=== PATIENT | female | born 1995 | race Caucasian/White ===

== ENCOUNTER 2016-06-07 21:39 | Emergency (ER) | payer OTHER ==
--- NOTE | 2016-06-07 23:27 | ED ---
General Adult HPI - General Chief complaint: Extremity Injury, Lower Stated complaint: rt hip pain, fall 3 days ago Time Seen by Provider: 06/07/16 22:59 Source: patient, family, RN notes reviewed Mode of arrival: ambulatory Limitations: no limitations - History of Present Illness Initial comments: Chief complaint history of present illness a 21-year-old female here with his significant other. The patient reports 3 days ago she was walking slipped and fell hard on her right knee. Day later started developing discomfort to her right inner hip and hip area. No other complaints of pain to the rest of the body. Having difficulty walking because of the pains increased Patient thinks she might be . - Related Data Home Medications Medication Instructions Recorded Confirmed Pnv with Ca,No.72/Iron/FA 1 tab PO DAILY 03/22/15 06/07/16 [ Plus Tablet] Cyclobenzaprine [Flexeril] 10 mg PO BID PRN 06/07/16 06/07/16 Levothyroxine Sodium [Synthroid] 200 mcg PO DAILY 06/07/16 06/07/16 Omeprazole 20 mg PO BID 06/07/16 06/07/16 Previous Rx's Medication Instructions Recorded Ibuprofen [Motrin] 600 mg PO Q6HR PRN #20 tab 06/08/16 Orphenadrine [Norflex] 100 mg PO Q12H #10 tablet.er 06/08/16 Allergies Allergy/AdvReac Type Severity Reaction Status Date / Time pregabalin [From Lyrica] Allergy Nausea & Verified 06/07/16 23:11 Vomiting Review of Systems ROS Statement: Those systems with pertinent positive or pertinent negative responses have been documented in the HPI. Review of systems no complaint of headache chest pain shortness breath GI/ complaints. Her pain goes from her right knee to her right hip and pelvic area. All systems were otherwise reviewed. 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 Carpal tunnel syndrome for which she receives steroid shots. Surgeries thyroidectomy, ALLERGIES Lyrica. She does smoke strongly encouraged stop. ROS Other: All systems not noted in ROS Statement are negative. Past Medical History Past Medical History: Fibromyalgia Additional Past Medical History / Comment(s): carpal tunnel, fibromyalgia History of Any Multi-Drug Resistant Organisms: None Reported Past Surgical History: No Surgical Hx Reported Past Psychological History: No Psychological Hx Reported Smoking Status: Current some day smoker Past Alcohol Use History: None Reported Past Drug Use History: None Reported General Exam - General Exam Comments Initial Comments: General: The patient is awake and alert, playing of pain from her right knee to her right hip area. Eye: Pupils are equal, round and reactive to light, extra-ocular movements are intact ; there is normal conjunctiva bilaterally. No signs of icterus. Ears, nose, mouth and throat: There are moist mucous membranes and no oral lesions. No chipped teeth. TMJs nontender Neck: The neck is supple, there is no tenderness . No chest pain, no palpitations no shortness of breath no wheezing. Gastrointestinal: No abdominal pain no nausea no vomiting or diarrhea no back pain. Musculoskeletal: All extremities are examined for range of motion except with pain to the right knee but no pain or varus valgus or drawer testing. Pain to the right hip and right inner groin area. Neurovascular status of the foot is intact. Neurological: No evidence of any neuro deficits. No complaints of weakness. Limitations: no limitations Course Vital Signs 06/07/16 06/07/16 21:41 23:04 Temperature 100.1 F H 98.3 F Pulse Rate 117 H 96 Respiratory 20 20 Rate Blood Pressure 118/77 O2 Sat by Pulse 99 100 Oximetry Medical Decision Making - Medical Decision Making X-ray of the pelvis is done and reviewed by me. No evidence of any acute bony irregularity. Awaiting radiologist's final impression X-ray of the right hip was done. No evidence of any acute bony irregularity or ear or fracture. Awaiting radiologist's final impression. X-ray of the right knee was done and reviewed by me. No evidence of any acute bony irregularity. Mortise appears to be well maintained no evidence of any patellar fracture. Dr. Smith Patient be placed on ibuprofen 800 mg one every 8 hours with food. Also Norflex 1 tablet twice daily for 5 days. Ice to the knee gentle range of motion. If pain persists further investigation may be necessary. Patient be advised to follow-up with her family physician if needed she should contact the on-call orthopedic surgeon Dr. Briones - Lab Data Lab Results 06/07/16 Range/Units 23:42 Urine HCG, Qual Not Detected (Not Detectd) Disposition Clinical Impression: Sprain of right hip, Contusion of right knee Disposition: HOME SELF-CARE Condition: Fair Instructions: Knee Sprain (ED), Hip Sprain (ED) Additional Instructions: Ice to the areas of discomfort. Ibuprofen as directed for pain. Follow-up with family physician. If needed follow-up with orthopedics for further evaluation if pain persists for more than one week Prescriptions: Ibuprofen [Motrin] 600 mg PO Q6HR PRN #20 tab PRN Reason: Pain Orphenadrine [Norflex] 100 mg PO Q12H #10 tablet.er Time of Disposition: 00:49
[2016-06-08] MEDS ORDERED: IBUPROFEN 600 MG STARTER PACK 4 TAB BTL PO STA (00:30)
[2016-06-08 00:56] VITALS: BP 116/56; PULSE 89; RESP 18; TEMP 98.4
--- NOTE | 2016-06-08 01:05 | XR ---
EXAMINATION TYPE: XR knee 4V RT DATE OF EXAM: 06/08/2016 12:48 AM COMPARISON: 08/02/2013 HISTORY: Pain. Fell on the ice. TECHNIQUE: 4 views FINDINGS: I see no fracture nor dislocation. Joint spaces are normal. There is no sign of joint effus ion. IMPRESSION: Negative right knee exam. No change.
--- NOTE | 2016-06-08 01:07 | XR ---
EXAMINATION TYPE: XR Hip Complete RT DATE OF EXAM: 06/08/2016 12:48 AM COMPARISON: 08/02/2013 HISTORY: Fell on the ice. Hip pain. TECHNIQUE: 2 views FINDINGS: I see no fracture nor dislocation. Joint spaces are normal. IMPRESSION: Normal right hip exam. No change.
--- NOTE | 2016-06-08 01:07 | XR ---
EXAMINATION TYPE: XR pelvis AP view DATE OF EXAM: 06/08/2016 12:48 AM COMPARISON: 08/02/2013 HISTORY: Fell on the ice. Pain. TECHNIQUE: Single view FINDINGS: Pelvic ring is intact. Proximal femurs and hip joints are intact. Sacroiliac joints are nor mal. IMPRESSION: Normal pelvis.
== END 2016-06-08 00:58 | disposition home or self-care (01) ==
LOC: EC 21:39
DX: S80.01XA Contusion of right knee, initial encounter (principal); S73.101A Unspecified sprain of right hip, initial encounter; F17.200 Nicotine dependence, unspecified, uncomplicated; W01.0XXA Fall on same level from slipping, tripping and stumbling without subsequent striking against object, initial encounter; Y93.01 Activity, walking, marching and hiking; Z79.899 Other long term (current) drug therapy; Z88.8 Allergy status to other drugs, medicaments and biological substances
CPT/HCPCS: 72170; 73502; 81025; 99284

== ENCOUNTER 2016-12-20 18:06 | Emergency (ER) | payer BC, OTHER ==
[2016-12-20 18:27] VITALS: RESP 16; TEMP 97.8
[2016-12-20] MEDS ORDERED: SODIUM CHLORIDE 0.9% 1,000 ML IV STA (18:46)
--- NOTE | 2016-12-20 18:47 | ED ---
General Adult HPI - General Chief complaint: Abdominal Pain Stated complaint: Constipated x 2 weeks Time Seen by Provider: 12/20/16 18:39 Source: patient, RN notes reviewed Mode of arrival: ambulatory Limitations: no limitations - History of Present Illness Initial comments: Patient 21-year-old female who presents emergency room today with chief complaint of constipation over the last 2 weeks. Does not that she's tried some [id number] medications with little relief of the symptoms. She does admit that she has been passing gas. Does admit to 2 small bowel movements. States that he has been experiencing lower abdominal cramping in nature to the left lower quadrant. Denies any other complaints or associated symptoms. Patient denies any recent fever, chills, shortness of breath, chest pain, back pain, vomiting, numbness or tingling, dysuria or hematuria, constipation or diarrhea, headaches or visual changes, or any other complaints. - Related Data Home Medications Medication Instructions Recorded Confirmed Levothyroxine Sodium [Synthroid] 200 mcg PO DAILY 06/07/16 12/20/16 Levothyroxine Sodium [Synthroid] 25 mcg PO DAILY 12/20/16 12/20/16 Allergies Allergy/AdvReac Type Severity Reaction Status Date / Time pregabalin [From Lyrica] AdvReac Nausea & Verified 12/20/16 19:02 Vomiting Review of Systems ROS Statement: Those systems with pertinent positive or pertinent negative responses have been documented in the HPI. ROS Other: All systems not noted in ROS Statement are negative. Past Medical History Past Medical History: Fibromyalgia Additional Past Medical History / Comment(s): carpal tunnel, thyroid cancer History of Any Multi-Drug Resistant Organisms: None Reported Past Surgical History: No Surgical Hx Reported Additional Past Surgical History / Comment(s): thyroidectomy, iodine radiation therapy Past Psychological History: Anxiety Smoking Status: Former smoker Past Alcohol Use History: None Reported Past Drug Use History: None Reported General Exam - General Exam Comments Initial Comments: General: The patient is awake and alert, in no distress, and does not appear acutely ill. Eye: Pupils are equal, round and reactive to light, extra-ocular movements are intact. No nystagmus. There is normal conjunctiva bilaterally. No signs of icterus. Ears, nose, mouth and throat: There are moist mucous membranes and no oral lesions. Neck: The neck is supple, there is no tenderness or JVD. Cardiovascular: There is a regular rate and rhythm. No murmur, rub or gallop is appreciated. Respiratory: Lungs are clear to auscultation, respirations are non-labored, breath sounds are equal. No wheezes, stridor, rales, or rhonchi. Gastrointestinal: Soft, non-distended, non-tender abdomen without masses or organomegaly noted. There is no rebound or guarding present. No CVA tenderness. Bowel sounds are unremarkable. Musculoskeletal: Normal ROM, no tenderness. Strength 5/5. Sensation intact. Pulses equal bilaterally 2+. Neurological: A&O x 3. CN II-XII intact, There are no obvious motor or sensory deficits. Coordination appears grossly intact. Speech is normal. Skin: Skin is warm and dry and no rashes or lesions are noted. Psychiatric: Cooperative, appropriate mood & affect, normal judgment. Limitations: no limitations Course Vital Signs 12/20/16 18:22 Temperature 97.8 F Pulse Rate 83 Respiratory 16 Rate Blood Pressure 112/56 O2 Sat by Pulse 98 Oximetry Medical Decision Making - Medical Decision Making Patient reexamined at this time shows no signs of distress. Patient resting comfortably. X-ray reviewed. Labs reviewed unremarkable. Results were discussed with patient. TSH is currently pending at this time. She does take Synthroid. She is advised to follow-up with this level. Was discussed that this could be a possibility of cause constipation but at this time it will not roving changer as we will give her a laxative. Was discussed about enema. Patient has declined. Patient will be discharged home. - Lab Data Result diagrams: 12/20/16 19:03 12/20/16 19:03 Lab Results 12/20/16 12/20/16 12/20/16 Range/Units 19:03 19:03 19:03 WBC 8.8 (3.8-10.6) k/uL RBC 4.59 (3.80-5.40) m/uL Hgb 14.3 (11.4-16.0) gm/dL Hct 42.0 (34.0-46.0) % MCV 91.5 (80.0-100.0) fL MCH 31.2 (25.0-35.0) pg MCHC 34.1 (31.0-37.0) g/dL RDW 13.9 (11.5-15.5) % Plt Count 294 (150-450) k/uL Neutrophils % 65 % Lymphocytes % 27 % Monocytes % 5 % Eosinophils % 2 % Basophils % 0 % Neutrophils # 5.7 (1.3-7.7) k/uL Lymphocytes # 2.4 (1.0-4.8) k/uL Monocytes # 0.4 (0-1.0) k/uL Eosinophils # 0.2 (0-0.7) k/uL Basophils # 0.0 (0-0.2) k/uL Sodium 138 (137-145) mmol/L Potassium 4.1 (3.5-5.1) mmol/L Chloride 104 (98-107) mmol/L Carbon Dioxide 25 (22-30) mmol/L Anion Gap 9 mmol/L BUN 11 (7-17) mg/dL Creatinine 0.74 (0.52-1.04) mg/dL Est GFR (MDRD) Af Amer >60 (>60 ml/min/1.73 sqM) Est GFR (MDRD) Non-Af >60 (>60 ml/min/1.73 sqM) Glucose 81 (74-99) mg/dL Calcium 10.4 H (8.4-10.2) mg/dL Total Bilirubin 0.7 (0.2-1.3) mg/dL AST 23 (14-36) U/L ALT 35 (9-52) U/L Alkaline Phosphatase 64 (38-126) U/L Total Protein 7.0 (6.3-8.2) g/dL Albumin 4.2 (3.5-5.0) g/dL Urine Color Urine Appearance (Clear) Urine pH (5.0-8.0) Ur Specific [place] (1.001-1.035) Urine Protein (Negative) Urine Glucose (UA) (Negative) Urine Ketones (Negative) Urine Blood (Negative) Urine Nitrite (Negative) Urine Bilirubin (Negative) Urine Urobilinogen (<2.0) mg/dL Ur Leukocyte Esterase (Negative) Urine RBC (0-5) /hpf Urine WBC (0-5) /hpf Amorphous Sediment (None) /hpf Urine Mucus (None) /hpf Urine HCG, Qual Not Detected (Not Detectd) 12/20/16 Range/Units 19:03 WBC (3.8-10.6) k/uL RBC (3.80-5.40) m/uL Hgb (11.4-16.0) gm/dL Hct (34.0-46.0) % MCV (80.0-100.0) fL MCH (25.0-35.0) pg MCHC (31.0-37.0) g/dL RDW (11.5-15.5) % Plt Count (150-450) k/uL Neutrophils % % Lymphocytes % % Monocytes % % Eosinophils % % Basophils % % Neutrophils # (1.3-7.7) k/uL Lymphocytes # (1.0-4.8) k/uL Monocytes # (0-1.0) k/uL Eosinophils # (0-0.7) k/uL Basophils # (0-0.2) k/uL Sodium (137-145) mmol/L Potassium (3.5-5.1) mmol/L Chloride (98-107) mmol/L Carbon Dioxide (22-30) mmol/L Anion Gap mmol/L BUN (7-17) mg/dL Creatinine (0.52-1.04) mg/dL Est GFR (MDRD) Af Amer (>60 ml/min/1.73 sqM) Est GFR (MDRD) Non-Af (>60 ml/min/1.73 sqM) Glucose (74-99) mg/dL Calcium (8.4-10.2) mg/dL Total Bilirubin (0.2-1.3) mg/dL AST (14-36) U/L ALT (9-52) U/L Alkaline Phosphatase (38-126) U/L Total Protein (6.3-8.2) g/dL Albumin (3.5-5.0) g/dL Urine Color Light Yellow Urine Appearance Cloudy H (Clear) Urine pH 7.0 (5.0-8.0) Ur Specific [place] 1.013 (1.001-1.035) Urine Protein Negative (Negative) Urine Glucose (UA) Negative (Negative) Urine Ketones Negative (Negative) Urine Blood Negative (Negative) Urine Nitrite Negative (Negative) Urine Bilirubin Negative (Negative) Urine Urobilinogen <2.0 (<2.0) mg/dL Ur Leukocyte Esterase Negative (Negative) Urine RBC 1 (0-5) /hpf Urine WBC 1 (0-5) /hpf Amorphous Sediment Occasional H (None) /hpf Urine Mucus Rare H (None) /hpf Urine HCG, Qual (Not Detectd) Disposition Clinical Impression: Constipation Disposition: HOME SELF-CARE Condition: Good Instructions: Constipation (ED) Additional Instructions: Please use medication as discussed. Please follow-up with family doctor in the next 2 days of symptoms have not improved. Please return to emergency room if the symptoms increase or worsen or for any other concerns. Referrals: Mike Barrientos DO [Primary Care Provider] - 1-2 days Time of Disposition: 19:59
[2016-12-20 19:13] LABS: Basophils % (A) 0 %; CH 30.6; CHCM 33.6; Eosinophils # (A) 0.2 k/uL (0-0.7); Eosinophils % (A) 2 %; HDW 2.16; HGB 14.3 gm/dL (11.4-16.0); Luc # (Auto) 0.14; Luc % (Auto) 2; Lymphocytes # (A) 2.4 k/uL (1.0-4.8); Lymphocytes % (A) 27 %; MCH 31.2 pg (25.0-35.0); MCHC 34.1 g/dL (31.0-37.0); MCV 91.5 fL (80.0-100.0); Mean Platelet Volume 7.4; Monocytes # (A) 0.4 k/uL (0-1.0); Monocytes % (A) 5 %; Neutrophils # (A) 5.7 k/uL (1.3-7.7); Neutrophils % (A) 65 %; RBC 4.59 m/uL (3.80-5.40); RDW 13.9 % (11.5-15.5); WBC 8.8 k/uL (3.8-10.6); WBC (Perox) 8.51
[2016-12-20 19:16] LABS: Amorphous Sediment,Urine Occasional /hpf; Appearance,Urine Cloudy (Clear); Bilirubin,Urine Negative (Negative); Glucose,Urine (UA) Negative (Negative); Ketones,Urine Negative (Negative); Leukocyte Esterase,Urine Negative (Negative); Mucus,Urine Rare /hpf; Nitrite,Urine Negative (Negative); Particle Count 9115; Protein,Urine Negative (Negative); RBC,Urine 1 /hpf (0-5); Specific Gravity,Urine 1.013 (1.001-1.035); UA Billing (MACRO vs. MICRO) MICRO; Urobilinogen,Urine <2.0 mg/dL (<2.0); WBC,Urine 1 /hpf (0-5)
[2016-12-20 19:21] LABS: ALT 35 U/L (9-52); AST 23 U/L (14-36); Alkaline Phosphatase 64 U/L (38-126); Anion Gap 9 mmol/L; Blood Urea Nitrogen 11 mg/dL (7-17); Calcium 10.4 mg/dL (8.4-10.2); Carbon Dioxide 25 mmol/L (22-30); Chloride 104 mmol/L (98-107); Glucose 81 mg/dL (74-99); Non-African American GFR(MDRD) >60 (>60 ml/min/1.73 sqM); Potassium 4.1 mmol/L (3.5-5.1); Sodium 138 mmol/L (137-145); Total Bilirubin 0.7 mg/dL (0.2-1.3)
--- NOTE | 2016-12-20 19:46 | XR ---
EXAMINATION TYPE: XR KUB DATE OF EXAM: 12/20/2016 7:41 PM CLINICAL HISTORY: History of thyroid cancer. Constipation for 2 weeks per patient. Pain not further specified per order. TECHNIQUE: 2 upright KUB images of the abdomen are obtained. COMPARISON: None. FINDINGS: Scattered gas is seen in non-distended small bowel loops. Gas and fecal material is seen in non-distended colon. There is no visceromegaly, pneumoperitoneum, or abnormal calcification apprecia shanika. The lung bases are clear and the osseous structures are intact. IMPRESSION: Overall nonobstructive bowel gas pattern.
[2016-12-20] MEDS ORDERED: MAGNESIUM CITRATE 296 ML BOTTLE PO ONE (19:56)
[2016-12-20 20:30] VITALS: BP 110/68; PULSE 78
== END 2016-12-20 20:30 | disposition home or self-care (01) ==
LOC: EC 18:06
DX: K59.00 Constipation, unspecified (principal); E89.0 Postprocedural hypothyroidism; Z87.891 Personal history of nicotine dependence; Z79.899 Other long term (current) drug therapy; Z88.8 Allergy status to other drugs, medicaments and biological substances; Z85.850 Personal history of malignant neoplasm of thyroid
CPT/HCPCS: 36415; 74000; 80053; 81001; 81025; 84439; 84443; 85025; 96360; 99284

== ENCOUNTER → 2019-09-20 | Outpatient (CLI) | payer OTHER ==
--- NOTE | 2019-09-20 15:21 | XR ---
EXAMINATION TYPE: XR knee complete 3 views RT, XR tibia fibula 2 views RT DATE OF EXAM: 09/20/2019 COMPARISON: NONE HISTORY: 24-year-old female S80.01XA, pain from fall FINDINGS: Right knee: Some anterior soft tissue swelling along the infrapatellar region. Extensor mechanism cora ears intact. Trace knee joint fluid. No acute fracture, subluxation, or dislocation seen. Tibia/fibula: No acute fracture identified. Ankle joint appears grossly intact. IMPRESSION: There may be some mild soft tissue swelling along the anterior infrapatellar region. Otherwise, right knee and tibia/fibula without acute osseous abnormality seen.
== END | disposition home or self-care (01) ==
LOC: LABWHC1 14:47
PROVIDERS: ATTEND Emergency Medicine
DX: S80.01XA Contusion of right knee, initial encounter (principal)

== ENCOUNTER → 2020-11-18 | Outpatient (CLI) | payer BC ==
[2020-11-19 01:33] LABS: T4, Free (Free Thyroxine) 0.1 ng/dL (0.80-1.80)
== END | disposition home or self-care (01) ==
LOC: LABWHC1 14:05
PROVIDERS: ATTEND Otolaryngology
DX: C73 Malignant neoplasm of thyroid gland (principal)
CPT/HCPCS: 36415; 84432; 84439; 84443; 84481

== ENCOUNTER → 2020-11-20 | Outpatient (CLI) | payer BC ==
--- NOTE | 2020-11-25 12:26 | NM ---
EXAMINATION TYPE: NM thyroid image w uptake DATE OF EXAM: 11/21/2020 COMPARISON: NONE HISTORY: Thyroid cancer TECHNIQUE: Thyroid iodine uptake is calculated and images performed after the oral administration of 312 uCi 1-123 Capsule. FINDINGS: Suprasternal notch marker is utilized. There is a fair amount of background signal. Focal abnormal ra diotracer accumulation however is not evident. Uptake is calculated at 4 and 24 hours. There is essentially 0 uptake present within the thyroid beds during these time intervals. (1% at 4 hours, and 0.4% at 24 hours). Normal artifact from I-123 capsule ingestion is within the stomach. IMPRESSION: 1. No suspicious focal radiotracer accumulation to suggest residual thyroid tissue. 2. No suspicious uptake to suggest metastatic disease within the limited [id number].
== END | disposition home or self-care (01) ==
LOC: RADNMMAIN 08:33
PROVIDERS: ATTEND Otolaryngology
DX: C73 Malignant neoplasm of thyroid gland (principal)
CPT/HCPCS: 78014; A9516

== ENCOUNTER 2021-05-16 09:10 | Emergency (ER) | payer BC ==
[2021-05-16 09:22] VITALS: RESP 18
[2021-05-16] MEDS ORDERED: ACETAMINOPHEN TAB 500 MG TAB PO STA (09:47)
[2021-05-16] MEDS ORDERED: ONDANSETRON 4 MG/2 ML VIAL IVP STA ×2 (10:01→10:04)
[2021-05-16] MEDS ORDERED: KETOROLAC 15 MG/ML 1 ML VIAL IVP STA (10:04)
--- NOTE | 2021-05-16 10:16 | ED ---
General Adult HPI - General Chief complaint: Upper Respiratory Infection Stated complaint: Covid+/Antibodies Time Seen by Provider: 05/16/21 09:12 Source: patient, RN notes reviewed Mode of arrival: ambulatory Limitations: no limitations - History of Present Illness Initial comments: 26-year-old female presents emergency Department with chief complaint of COVID- 19. Patient states she started symptoms a days ago tested positive this week. Patient states she wants antibiotics. She continues to have nausea, decreased oral intake, fevers chills mild cough and congestion. - Related Data Home Medications Medication Instructions Recorded Confirmed Levothyroxine Sodium [Synthroid] 200 mcg PO DAILY 06/07/16 12/20/16 Levothyroxine Sodium [Synthroid] 25 mcg PO DAILY 12/20/16 12/20/16 Allergies Allergy/AdvReac Type Severity Reaction Status Date / Time pregabalin [From Lyrica] AdvReac Nausea & Verified 05/16/21 09:22 Vomiting Review of Systems ROS Statement: Those systems with pertinent positive or pertinent negative responses have been documented in the HPI. ROS Other: All systems not noted in ROS Statement are negative. Past Medical History Past Medical History: Fibromyalgia Additional Past Medical History / Comment(s): carpal tunnel, thyroid cancer, covid History of Any Multi-Drug Resistant Organisms: None Reported Past Surgical History: No Surgical Hx Reported Additional Past Surgical History / Comment(s): thyroidectomy, iodine radiation therapy Past Psychological History: Anxiety Smoking Status: Never smoker Past Alcohol Use History: None Reported Past Drug Use History: Marijuana General Exam Limitations: no limitations General appearance: alert, in no apparent distress Head exam: Present: atraumatic, normocephalic, normal inspection Eye exam: Present: normal appearance, PERRL, EOMI. Absent: scleral icterus, conjunctival injection, periorbital swelling ENT exam: Present: normal exam, normal oropharynx, mucous membranes moist Neck exam: Present: normal inspection, full ROM. Absent: tenderness, meningismus, lymphadenopathy Respiratory exam: Present: normal lung sounds bilaterally. Absent: respiratory distress, wheezes, rales, rhonchi, stridor Cardiovascular Exam: Present: normal rhythm, tachycardia, normal heart sounds. Absent: systolic murmur, diastolic murmur, rubs, gallop, clicks GI/Abdominal exam: Present: soft, tenderness (Mild diffuse), normal bowel sounds. Absent: distended, guarding, rebound, rigid Course Vital Signs 05/16/21 09:19 Temperature 100.9 F H Pulse Rate 103 H Respiratory 18 Rate Blood Pressure 112/72 O2 Sat by Pulse 100 Oximetry Medical Decision Making - Medical Decision Making Patient will receive on-call antibodies we discharged stable condition return parameters discussed Disposition Clinical Impression: COVID-19 Disposition: HOME SELF-CARE Condition: Stable Instructions (If sedation given, give patient instructions): Coronavirus Disease 2019 (COVID-19) Additional Instructions: Please return to the Emergency Department if symptoms worsen or any other concerns. Is patient prescribed a controlled substance at d/c from ED?: No Referrals: Mike Barrientos DO [Primary Care Provider] - 1-2 days Time of Disposition: 10:16
[2021-05-16] MEDS ORDERED: BAMLANIVIMAB (EUA) 700 MG, ETESEVIMAB (EUA) 1,400 MG in SODIUM CHLORIDE 0.9% 50 ML IVPB ONE (11:00)
[2021-05-16] MEDS ORDERED: SODIUM CHLORIDE 0.9% 50 ML IVPB ONE (11:30)
[2021-05-16 11:34] LABS: Amorphous Sediment,Urine Occasional /hpf; Appearance,Urine Turbid (Clear); Bacteria,Urine Rare /hpf; Bilirubin,Urine Negative (Negative); Blood,Urine Negative (Negative); Color,Urine Yellow; Glucose,Urine (UA) Negative (Negative); Ketones,Urine 2+ (Negative); Leukocyte Esterase,Urine Large (Negative); Mucus,Urine Many /hpf; Nitrite,Urine Negative (Negative); Protein,Urine 1+ (Negative); RBC,Urine 2 /hpf (0-5); Squamous Epithelial Cell,Urine 50 /hpf (0-4); WBC,Urine 34 /hpf (0-5)
[2021-05-16 13:36] VITALS: BP 103/71; PULSE 79; TEMP 98.4
== END 2021-05-16 13:35 | disposition home or self-care (01) ==
LOC: EC 09:10
DX: U07.1 COVID-19 (principal); M79.7 Fibromyalgia; F41.9 Anxiety disorder, unspecified; F12.90 Cannabis use, unspecified, uncomplicated; Z85.850 Personal history of malignant neoplasm of thyroid
CPT/HCPCS: 96374; 96375; 99283; M0245; 81001; 81025; 87086

== ENCOUNTER 2021-05-17 20:45 | Emergency (ER) | payer BC ==
[2021-05-17] MEDS ORDERED: SODIUM CHLORIDE 0.9% 500 ML 500 ML IV STA (21:54)
[2021-05-17] MEDS ORDERED: SODIUM CHLORIDE 0.9% 1,000 ML IV STA (21:54)
[2021-05-17] MEDS ORDERED: KETOROLAC 15 MG/ML 1 ML VIAL IVP STA (21:54)
[2021-05-17] MEDS ORDERED: DEXAMETHASONE SOD PHOSPHATE 10 MG/ML 1 ML VIAL IVP STA (21:54)
[2021-05-17] MEDS ORDERED: ACETAMINOPHEN TAB 500 MG TAB PO STA (21:54)
[2021-05-17] MEDS ORDERED: SODIUM CHLORIDE 0.9% 1,000 ML IV SCH (22:00)
--- NOTE | 2021-05-17 22:14 | ED ---
Recheck HPI - General Chief Complaint: Shortness of Breath Stated Complaint: Revisit COVID+, Weakness Time Seen by Provider: 05/17/21 21:38 Source: patient, RN notes reviewed, old records reviewed Mode of arrival: ambulatory Limitations: no limitations - History of Present Illness Initial Comments: This is a 26-year-old female to the ER for evaluation today. Patient Dese for evaluation regards to significant shortness of breath weakness persistent sh ortness of breath and weakness with recent syncopal event on exertion. Severe shortness of breath with exertion. Otherwise patient has known coronavirus. Patient was given antibiotics. Patient is around a 7 or 8 with worsening symptoms. Fevers weakness dehydration and decreased appetite MD Complaint: abnormal lab (Positive for coronavirus) -: week(s) Returns Today for: persistent/worsening pain related to initial visit Symptoms Since Prior Visit: worsening pain, fever Context: other (Syncopal event and weakness) Associated Symptoms: fever, chills, shortness of breath, malaise Treatments Prior to Arrival: other medications - Related Data Home Medications Medication Instructions Recorded Confirmed Levothyroxine Sodium [Synthroid] 200 mcg PO DAILY 06/07/16 05/17/21 Fluconazole [Diflucan] 150 mg PO DIRECTED PRN 05/17/21 05/17/21 Previous Rx's Medication Instructions Recorded Cephalexin [Keflex] 500 mg PO Q8HR #21 cap 05/16/21 Allergies Allergy/AdvReac Type Severity Reaction Status Date / Time pregabalin [From Lyrica] AdvReac Nausea & Verified 05/17/21 21:52 Vomiting Review of Systems ROS Statement: Those systems with pertinent positive or pertinent negative responses have been documented in the HPI. ROS Other: All systems not noted in ROS Statement are negative. Past Medical History Past Medical History: Fibromyalgia Additional Past Medical History / Comment(s): carpal tunnel, thyroid cancer, covid History of Any Multi-Drug Resistant Organisms: None Reported Past Surgical History: No Surgical Hx Reported Additional Past Surgical History / Comment(s): thyroidectomy, iodine radiation therapy Past Psychological History: Anxiety Smoking Status: Never smoker Past Alcohol Use History: None Reported Past Drug Use History: Marijuana General Exam Limitations: no limitations General appearance: alert, in no apparent distress Head exam: Present: atraumatic, normocephalic, normal inspection Eye exam: Present: normal appearance, PERRL, EOMI. Absent: scleral icterus, conjunctival injection, periorbital swelling ENT exam: Present: normal exam, mucous membranes moist Neck exam: Present: normal inspection. Absent: tenderness, meningismus, lymphadenopathy Respiratory exam: Present: normal lung sounds bilaterally. Absent: respiratory distress, wheezes, rales, rhonchi, stridor Cardiovascular Exam: Present: regular rate, normal rhythm, normal heart sounds. Absent: systolic murmur, diastolic murmur, rubs, gallop, clicks GI/Abdominal exam: Present: soft, normal bowel sounds. Absent: distended, tenderness, guarding, rebound, rigid Extremities exam: Present: normal inspection, full ROM, normal capillary refill. Absent: tenderness, pedal edema, joint swelling, calf tenderness Back exam: Present: normal inspection Neurological exam: Present: alert, oriented X3, CN II-XII intact Psychiatric exam: Present: normal affect, normal mood Skin exam: Present: warm, dry, intact, normal color. Absent: rash Course Vital Signs 05/17/21 21:12 Temperature 98.2 F Pulse Rate 83 Respiratory 20 Rate Blood Pressure 108/70 O2 Sat by Pulse 93 L Oximetry - Reevaluation(s) Reevaluation #1: 05/18/21 00:53 Medical record is reviewed Reevaluation #2: 05/18/21 00:53 Patient still feels very weak and shortness of breath Reevaluation #3: 05/18/21 00:53 Patient is without chest pain Reevaluation #4: 05/18/21 00:54 Patient informed results and questions answered Medical Decision Making - Medical Decision Making 26 female DF for evaluation patient presents today for evaluation regards to recheck for coronavirus. Patient has had antibiotic Dese tetanus of coronavirus, patient states that she has increasing weakness with syncopal event shortness of breath on exertion states her and will try pulse ox is anywhere from 85-88 - Lab Data Result diagrams: 05/17/21 22:29 05/17/21 22:29 Lab Results 05/17/21 05/17/21 05/17/21 Range/Units 22:29 22:29 22:29 WBC 4.7 (3.8-10.6) k/uL RBC 4.19 (3.80-5.40) m/uL Hgb 13.2 (11.4-16.0) gm/dL Hct 39.5 (34.0-46.0) % MCV 94.2 (80.0-100.0) fL MCH 31.6 (25.0-35.0) pg MCHC 33.5 (31.0-37.0) g/dL RDW 13.3 (11.5-15.5) % Plt Count 181 (150-450) k/uL MPV 8.4 Neutrophils % 60 % Lymphocytes % 33 % Monocytes % 5 % Eosinophils % 1 % Basophils % 0 % Neutrophils # 2.8 (1.3-7.7) k/uL Lymphocytes # 1.5 (1.0-4.8) k/uL Monocytes # 0.2 (0-1.0) k/uL Eosinophils # 0.0 (0-0.7) k/uL Basophils # 0.0 (0-0.2) k/uL PT 9.5 (9.0-12.0) sec INR 0.9 (<1.2) APTT 19.8 L (22.0-30.0) sec D-Dimer 0.77 H (<0.60) mg/L FEU Sodium 135 L (137-145) mmol/L Potassium 4.5 (3.5-5.1) mmol/L Chloride 104 (98-107) mmol/L Carbon Dioxide 21 L (22-30) mmol/L Anion Gap 10 mmol/L BUN 11 (7-17) mg/dL Creatinine 0.52 (0.52-1.04) mg/dL Est GFR (CKD-EPI)AfAm >90 (>60 ml/min/1.73 sqM) Est GFR (CKD-EPI)NonAf >90 (>60 ml/min/1.73 sqM) Glucose 81 (74-99) mg/dL Plasma Lactic Acid Elmo (0.7-2.0) mmol/L Calcium 8.9 (8.4-10.2) mg/dL Magnesium 2.1 (1.6-2.3) mg/dL Total Bilirubin 0.9 (0.2-1.3) mg/dL AST 69 H (14-36) U/L ALT 44 H (4-34) U/L Alkaline Phosphatase 44 (38-126) U/L Lactate Dehydrogenase 1458 H (313-618) U/L Troponin I (0.000-0.034) ng/mL C-Reactive Protein 2.5 H (<1.0) mg/dL Total Protein 7.4 (6.3-8.2) g/dL Albumin 4.0 (3.5-5.0) g/dL 05/17/21 05/17/21 Range/Units 22:29 22:29 WBC (3.8-10.6) k/uL RBC (3.80-5.40) m/uL Hgb (11.4-16.0) gm/dL Hct (34.0-46.0) % MCV (80.0-100.0) fL MCH (25.0-35.0) pg MCHC (31.0-37.0) g/dL RDW (11.5-15.5) % Plt Count (150-450) k/uL MPV Neutrophils % % Lymphocytes % % Monocytes % % Eosinophils % % Basophils % % Neutrophils # (1.3-7.7) k/uL Lymphocytes # (1.0-4.8) k/uL Monocytes # (0-1.0) k/uL Eosinophils # (0-0.7) k/uL Basophils # (0-0.2) k/uL PT (9.0-12.0) sec INR (<1.2) APTT (22.0-30.0) sec D-Dimer (<0.60) mg/L FEU Sodium (137-145) mmol/L Potassium (3.5-5.1) mmol/L Chloride (98-107) mmol/L Carbon Dioxide (22-30) mmol/L Anion Gap mmol/L BUN (7-17) mg/dL Creatinine (0.52-1.04) mg/dL Est GFR (CKD-EPI)AfAm (>60 ml/min/1.73 sqM) Est GFR (CKD-EPI)NonAf (>60 ml/min/1.73 sqM) Glucose (74-99) mg/dL Plasma Lactic Acid Elmo 0.9 (0.7-2.0) mmol/L Calcium (8.4-10.2) mg/dL Magnesium (1.6-2.3) mg/dL Total Bilirubin (0.2-1.3) mg/dL AST (14-36) U/L ALT (4-34) U/L Alkaline Phosphatase (38-126) U/L Lactate Dehydrogenase (313-618) U/L Troponin I <0.012 (0.000-0.034) ng/mL C-Reactive Protein (<1.0) mg/dL Total Protein (6.3-8.2) g/dL Albumin (3.5-5.0) g/dL - EKG Data -: EKG Interpreted by Me (EKG shows sinus rhythm 76 NJ 146 QRS 78 QTc 375) - Radiology Data Radiology results: report reviewed (CT chest negative for PE), image reviewed Disposition Clinical Impression: COVID-19 2019 novel coronavirus-infected pneumonia (NCIP), Hypoxia, Weakness, Nausea & vomiting, Syncope Disposition: ADMITTED IP TO THIS HOSP Condition: Good Is patient prescribed a controlled substance at d/c from ED?: No
[2021-05-17 22:49] LABS: Basophils % (A) 0 %; Eosinophils % (A) 1 %; HCT 39.5 % (34.0-46.0); HGB 13.2 gm/dL (11.4-16.0); Lymphocytes # (A) 1.5 k/uL (1.0-4.8); Lymphocytes % (A) 33 %; MCH 31.6 pg (25.0-35.0); MCHC 33.5 g/dL (31.0-37.0); MCV 94.2 fL (80.0-100.0); Mean Platelet Volume 8.4; Monocytes # (A) 0.2 k/uL (0-1.0); Monocytes % (A) 5 %; Neutrophils # (A) 2.8 k/uL (1.3-7.7); Neutrophils % (A) 60 %; Platelet Count 181 k/uL (150-450); RBC 4.19 m/uL (3.80-5.40); RDW 13.3 % (11.5-15.5); WBC 4.7 k/uL (3.8-10.6)
[2021-05-17] MEDS ORDERED: ONDANSETRON 4 MG/2 ML VIAL IVP STA (22:49)
[2021-05-17 23:02] LABS: ALT 44 U/L (4-34); AST 69 U/L (14-36); African American GFR (CKD) >90 (>60 ml/min/1.73 sqM); Alkaline Phosphatase 44 U/L (38-126); Anion Gap 10 mmol/L; Blood Urea Nitrogen 11 mg/dL (7-17); C Reactive Protein 2.5 mg/dL (<1.0); Calcium 8.9 mg/dL (8.4-10.2); Carbon Dioxide 21 mmol/L (22-30); Chloride 104 mmol/L (98-107); Glucose 81 mg/dL (74-99); LDH 1458 U/L (313-618); Magnesium 2.1 mg/dL (1.6-2.3); Non-African American GFR(CKD) >90 (>60 ml/min/1.73 sqM); Potassium 4.5 mmol/L (3.5-5.1); Sodium 135 mmol/L (137-145); Total Bilirubin 0.9 mg/dL (0.2-1.3); Total Protein 7.4 g/dL (6.3-8.2)
[2021-05-17 23:10] LABS: INR 0.9 (<1.2); Prothrombin Time 9.5 sec (9.0-12.0)
--- NOTE | 2021-05-17 23:19 | CT ---
EXAMINATION TYPE: CT angio chest DATE OF EXAM: 05/17/2021 COMPARISON: None HISTORY: SOB CT DLP: 247.6 mGycm Automated exposure control for dose reduction was used. CONTRAST: Performed with IV Contrast, patient injected with 65ml mL of Isovue 370. There are 3-D post processed images. There is some patchy airspace consolidation in both lower lobes. Heart size is normal. There is no pe ricardial effusion. There is no mediastinal adenopathy. There are no hilar masses. There is normal co ntrast opacification of the pulmonary arteries. There are no filling defects. Thoracic aorta is intac t. There is no aneurysm or dissection. The thoracic spine is intact. There is no compression fracture. Sternum is intact. Upper abdominal so ft tissues appear intact. IMPRESSION: Bilateral lower lobe patchy airspace pneumonia. No evidence of pulmonary embolism.
[2021-05-17 23:23] LABS: Partial Thromboplastin Time 19.8 sec (22.0-30.0)
[2021-05-17] MEDS ORDERED: ONDANSETRON 4 MG/2 ML VIAL IVP PRN ×2 (23:48→23:53)
[2021-05-17] MEDS ORDERED: NALOXONE 0.4 MG/ML 1 ML VIAL IV PRN (23:48)
[2021-05-17] MEDS ORDERED: IBUPROFEN 400 MG TAB PO PRN (23:48)
[2021-05-17] MEDS ORDERED: ACETAMINOPHEN TAB 325 MG TAB PO PRN (23:48)
[2021-05-17] MEDS ORDERED: LORazepam 2 MG/ML INJ IV PRN (23:48)
[2021-05-17] MEDS ORDERED: MORPHINE SULFATE 4 MG/ML SYRINGE IV PRN (23:48)
[2021-05-18 02:14] VITALS: BP 106/66; PULSE 82; RESP 18; TEMP 98.4
[2021-05-18] MEDS ORDERED: DEXAMETHASONE SOD PHOSPHATE 10 MG/ML 1 ML VIAL IVP SCH (09:00)
[2021-05-18] MEDS ORDERED: PANTOPRAZOLE 40 MG/10 ML VIAL IV SCH (09:00)
[2021-05-18] MEDS ORDERED: ENOXAPARIN 40 MG/0.4 ML SYRINGE SQ SCH (09:00)
== END 2021-05-18 01:10 | disposition other institution (70) ==
LOC: EC 20:45 → 6NMEDSUR 23:48 → UNDOADMOB 23:48 → EC 05-18 01:10
DX: U07.1 COVID-19 (principal); J12.82 Pneumonia due to coronavirus disease 2019; R09.02 Hypoxemia; R11.2 Nausea with vomiting, unspecified; R53.1 Weakness; R55 Syncope and collapse; F41.9 Anxiety disorder, unspecified; F12.90 Cannabis use, unspecified, uncomplicated
CPT/HCPCS: 36415; 93005; 85379; 80053; 82728; 83605; 83615; 83735; 84484; 85025; 85610; 85730; 86140; 71275; 99285; 96374; 96375 ×2; 96361 ×2; J1100; J2405; J1885; Q9967

== ENCOUNTER 2021-07-17 15:06 | Emergency (ER) | payer BC ==
[2021-07-17 15:24] VITALS: TEMP 99.6
[2021-07-17 16:05] LABS: Appearance,Urine Cloudy (Clear); Bilirubin,Urine Negative (Negative); Blood,Urine Negative (Negative); Color,Urine Light Yellow; Glucose,Urine (UA) Negative (Negative); Ketones,Urine Negative (Negative); Leukocyte Esterase,Urine Moderate (Negative); Mucus,Urine Occasional /hpf; Nitrite,Urine Negative (Negative); Protein,Urine Negative (Negative); RBC,Urine 4 /hpf (0-5); Specific Gravity,Urine 1.014 (1.001-1.035); Squamous Epithelial Cell,Urine 7 /hpf (0-4); Urobilinogen,Urine <2.0 mg/dL (<2.0); WBC,Urine 5 /hpf (0-5)
[2021-07-17] MEDS ORDERED: SODIUM CHLORIDE 0.9% 1,000 ML IV STA (16:36)
[2021-07-17] MEDS ORDERED: ONDANSETRON 4 MG/2 ML VIAL IVP STA (16:36)
[2021-07-17] MEDS ORDERED: KETOROLAC 15 MG/ML 1 ML VIAL IVP STA (16:37)
[2021-07-17 16:54] LABS: Basophils # (A) 0.1 k/uL (0-0.2); Basophils % (A) 1 %; Eosinophils # (A) 0.1 k/uL (0-0.7); Eosinophils % (A) 1 %; HCT 37.4 % (34.0-46.0); HGB 12.4 gm/dL (11.4-16.0); Lymphocytes # (A) 2.8 k/uL (1.0-4.8); Lymphocytes % (A) 41 %; MCH 32.3 pg (25.0-35.0); MCV 97.6 fL (80.0-100.0); Mean Platelet Volume 7.6; Monocytes # (A) 0.3 k/uL (0-1.0); Monocytes % (A) 5 %; Neutrophils # (A) 3.3 k/uL (1.3-7.7); Neutrophils % (A) 49 %; Platelet Count 292 k/uL (150-450); RBC 3.83 m/uL (3.80-5.40); RDW 13.7 % (11.5-15.5); WBC 6.7 k/uL (3.8-10.6)
[2021-07-17 17:03] LABS: ALT 17 U/L (4-34); AST 23 U/L (14-36); African American GFR (CKD) >90 (>60 ml/min/1.73 sqM); Albumin 3.8 g/dL (3.5-5.0); Alkaline Phosphatase 35 U/L (38-126); Anion Gap 8 mmol/L; Blood Urea Nitrogen 7 mg/dL (7-17); Calcium 9.3 mg/dL (8.4-10.2); Carbon Dioxide 20 mmol/L (22-30); Chloride 107 mmol/L (98-107); Glucose 81 mg/dL (74-99); Lipase 87 U/L (23-300); Non-African American GFR(CKD) >90 (>60 ml/min/1.73 sqM); Potassium 3.9 mmol/L (3.5-5.1); Sodium 135 mmol/L (137-145); Total Bilirubin 0.4 mg/dL (0.2-1.3); Total Protein 6.5 g/dL (6.3-8.2)
[2021-07-17 17:14] VITALS: RESP 16
--- NOTE | 2021-07-17 17:37 | ED ---
General Adult HPI - General Chief complaint: Nausea/Vomiting/Diarrhea Stated complaint: Vomiting Time Seen by Provider: 07/17/21 16:09 Source: patient Mode of arrival: ambulatory Limitations: no limitations - History of Present Illness Initial comments: 26 year-old female patient presents for evaluation of abdominal pain and vomiting. Patient states she has been having symptoms for the last 6 months. States over the last week she has had daily symptoms. States she sometimes will only vomit one time. Sometimes she will be unable to eat or drink the entire day. States she did recently start having lower abdominal pain, she had ultrasound ordered at [facility] yesterday and was found to have a 5cm ovarian cyst on the right side. States when she woke this morning her pain was worse. Denies any vomiting today. States she her physician wanted her to come in for a CT abdomen and pelvis. She does have thyroid disorder and take 200mcg synthroid daily. Does take carafate for her chronic vomiting. Does smoke marijuana daily but does not believe her symptoms are at all related. Denies any hematochezia or melena. Denies fever or chills. Denies any new or stopped medication. Denies history of abdominal surgery. Denies chance of . - Related Data Home Medications Medication Instructions Recorded Confirmed Levothyroxine Sodium [Synthroid] 200 mcg PO DAILY 06/07/16 07/17/21 Sucralfate [Carafate] 1 gm PO AC-TID PRN 07/17/21 07/17/21 Previous Rx's Medication Instructions Recorded Metoclopramide [Reglan] 10 mg PO Q8H PRN #30 tab 07/17/21 Allergies Allergy/AdvReac Type Severity Reaction Status Date / Time pregabalin [From Lyrica] AdvReac Nausea & Verified 07/17/21 17:09 Vomiting Review of Systems ROS Statement: Those systems with pertinent positive or pertinent negative responses have been documented in the HPI. ROS Other: All systems not noted in ROS Statement are negative. Past Medical History Past Medical History: Fibromyalgia Additional Past Medical History / Comment(s): carpal tunnel, thyroid cancer, covid History of Any Multi-Drug Resistant Organisms: None Reported Past Surgical History: No Surgical Hx Reported Additional Past Surgical History / Comment(s): thyroidectomy, iodine radiation therapy Past Psychological History: Anxiety Smoking Status: Never smoker Past Alcohol Use History: None Reported Past Drug Use History: Marijuana General Exam Limitations: no limitations General appearance: alert, in no apparent distress, other (This is a well- developed, well-nourished adult female in no acute distress.) Respiratory exam: Present: normal lung sounds bilaterally. Absent: respiratory distress, wheezes, rales, rhonchi, stridor Cardiovascular Exam: Present: regular rate, normal rhythm, normal heart sounds. Absent: systolic murmur, diastolic murmur, rubs, gallop, clicks GI/Abdominal exam: Present: soft, tenderness (Right lower quadrant), normal bowel sounds. Absent: distended, guarding, rebound, rigid Neurological exam: Present: alert, oriented X3, CN II-XII intact Psychiatric exam: Present: normal affect, normal mood Skin exam: Present: warm, dry, intact, normal color. Absent: rash Course Vital Signs 07/17/21 07/17/21 07/17/21 15:22 17:13 19:00 Temperature 99.6 F Pulse Rate 81 87 77 Respiratory 20 16 16 Rate Blood Pressure 111/84 107/78 102/77 O2 Sat by Pulse 97 97 98 Oximetry Medical Decision Making - Medical Decision Making 26 old female patient presented to the emergency department for evaluation of right lower quadrant abdominal pain for the last several days. She's had nausea and vomiting for the last 6 months. Physical examination did reveal right lower quadrant tenderness. Labs reviewed and are unremarkable. Ultrasound was obtained and showed evidence for ovarian cyst bilateral bigger on the right side. No evidence for torsion. CT abdomen and pelvis was obtained and was negative. She is not . She will be discharged follow up with the primary care physician and SURGICAL TERRITORY MANAGER for recheck as soon as possible. She is given prescription for Reglan for nausea and vomiting. Return parameters discussed in detail and she verbalizes understanding and agrees with this plan. My attending is Dr. Boss. - Lab Data Result diagrams: 07/17/21 16:43 07/17/21 16:43 Lab Results 07/17/21 07/17/21 07/17/21 Range/Units 15:25 15:25 16:43 WBC 6.7 (3.8-10.6) k/uL RBC 3.83 (3.80-5.40) m/uL Hgb 12.4 (11.4-16.0) gm/dL Hct 37.4 (34.0-46.0) % MCV 97.6 (80.0-100.0) fL MCH 32.3 (25.0-35.0) pg MCHC 33.0 (31.0-37.0) g/dL RDW 13.7 (11.5-15.5) % Plt Count 292 (150-450) k/uL MPV 7.6 Neutrophils % 49 % Lymphocytes % 41 % Monocytes % 5 % Eosinophils % 1 % Basophils % 1 % Neutrophils # 3.3 (1.3-7.7) k/uL Lymphocytes # 2.8 (1.0-4.8) k/uL Monocytes # 0.3 (0-1.0) k/uL Eosinophils # 0.1 (0-0.7) k/uL Basophils # 0.1 (0-0.2) k/uL Sodium (137-145) mmol/L Potassium (3.5-5.1) mmol/L Chloride (98-107) mmol/L Carbon Dioxide (22-30) mmol/L Anion Gap mmol/L BUN (7-17) mg/dL Creatinine (0.52-1.04) mg/dL Est GFR (CKD-EPI)AfAm (>60 ml/min/1.73 sqM) Est GFR (CKD-EPI)NonAf (>60 ml/min/1.73 sqM) Glucose (74-99) mg/dL Plasma Lactic Acid Elmo (0.7-2.0) mmol/L Calcium (8.4-10.2) mg/dL Total Bilirubin (0.2-1.3) mg/dL AST (14-36) U/L ALT (4-34) U/L Alkaline Phosphatase (38-126) U/L Total Protein (6.3-8.2) g/dL Albumin (3.5-5.0) g/dL Lipase (23-300) U/L Urine Color Light Yellow Urine Appearance Cloudy H (Clear) Urine pH 6.0 (5.0-8.0) Ur Specific [place] 1.014 (1.001-1.035) Urine Protein Negative (Negative) Urine Glucose (UA) Negative (Negative) Urine Ketones Negative (Negative) Urine Blood Negative (Negative) Urine Nitrite Negative (Negative) Urine Bilirubin Negative (Negative) Urine Urobilinogen <2.0 (<2.0) mg/dL Ur Leukocyte Esterase Moderate H (Negative) Urine RBC 4 (0-5) /hpf Urine WBC 5 (0-5) /hpf Ur Squamous Epith Cells 7 H (0-4) /hpf Urine Mucus Occasional H (None) /hpf Urine HCG, Qual Not Detected (Not Detectd) 07/17/21 07/17/21 Range/Units 16:43 16:43 WBC (3.8-10.6) k/uL RBC (3.80-5.40) m/uL Hgb (11.4-16.0) gm/dL Hct (34.0-46.0) % MCV (80.0-100.0) fL MCH (25.0-35.0) pg MCHC (31.0-37.0) g/dL RDW (11.5-15.5) % Plt Count (150-450) k/uL MPV Neutrophils % % Lymphocytes % % Monocytes % % Eosinophils % % Basophils % % Neutrophils # (1.3-7.7) k/uL Lymphocytes # (1.0-4.8) k/uL Monocytes # (0-1.0) k/uL Eosinophils # (0-0.7) k/uL Basophils # (0-0.2) k/uL Sodium 135 L (137-145) mmol/L Potassium 3.9 (3.5-5.1) mmol/L Chloride 107 (98-107) mmol/L Carbon Dioxide 20 L (22-30) mmol/L Anion Gap 8 mmol/L BUN 7 (7-17) mg/dL Creatinine 0.73 (0.52-1.04) mg/dL Est GFR (CKD-EPI)AfAm >90 (>60 ml/min/1.73 sqM) Est GFR (CKD-EPI)NonAf >90 (>60 ml/min/1.73 sqM) Glucose 81 (74-99) mg/dL Plasma Lactic Acid Elmo 1.3 (0.7-2.0) mmol/L Calcium 9.3 (8.4-10.2) mg/dL Total Bilirubin 0.4 (0.2-1.3) mg/dL AST 23 (14-36) U/L ALT 17 (4-34) U/L Alkaline Phosphatase 35 L (38-126) U/L Total Protein 6.5 (6.3-8.2) g/dL Albumin 3.8 (3.5-5.0) g/dL Lipase 87 (23-300) U/L Urine Color Urine Appearance (Clear) Urine pH (5.0-8.0) Ur Specific [place] (1.001-1.035) Urine Protein (Negative) Urine Glucose (UA) (Negative) Urine Ketones (Negative) Urine Blood (Negative) Urine Nitrite (Negative) Urine Bilirubin (Negative) Urine Urobilinogen (<2.0) mg/dL Ur Leukocyte Esterase (Negative) Urine RBC (0-5) /hpf Urine WBC (0-5) /hpf Ur Squamous Epith Cells (0-4) /hpf Urine Mucus (None) /hpf Urine HCG, Qual (Not Detectd) - Radiology Data Radiology results: report reviewed, image reviewed Ultrasound of the pelvis is obtained. Report was reviewed in its entirety. Impression by Dr. Price shows a 4 cm cyst on the right ovary. No solid adnexal mass. No evidence of ovarian torsion. Normal uterus. CT abdomen and pelvis with contrast was obtained. Report was reviewed in its entirety. Impression by Dr. Morley shows bilateral ovarian cyst and large on the right side. No free fluid. Normal appendix. Disposition Clinical Impression: Vomiting, Ovarian cyst, Abdominal pain Disposition: HOME SELF-CARE Condition: Good Instructions (If sedation given, give patient instructions): Ovarian Cyst (ED), Acute Nausea and Vomiting (ED), Abdominal Pain (ED) Additional Instructions: Take medication as directed. Follow-up with your SURGICAL TERRITORY MANAGER for recheck as soon as possible. Follow up with the primary care physician for recheck. Return for any new, worsening, or concerning symptoms. Prescriptions: Metoclopramide [Reglan] 10 mg PO Q8H PRN #30 tab PRN Reason: Vomiting Is patient prescribed a controlled substance at d/c from ED?: No Referrals: Mike Barrientos DO [Primary Care Provider] - 1-2 days Time of Disposition: 20:26
--- NOTE | 2021-07-17 18:50 | US ---
EXAMINATION TYPE: US pelvic complete DATE OF EXAM: 07/17/2021 COMPARISON: NONE CLINICAL HISTORY: Known Right ovarian cyst; Worse pain today. EC patient stated had pelvic US yesterd ay at [facility] showing right ovarian cyst; patient c/o midline pelvic pain today. TECHNIQUE: . Transabdominal sonographic images of the pelvis were acquired. Date of LMP: 06/19/2021 EXAM MEASUREMENTS: Uterus: 7.3 x 4.4 x 2.6 cm Endometrial Stripe: 0.8 cm Right Ovary: 5.5 x 4.5 x 4.2 cm Left Ovary: 3.4 x 2.3 x 2.7 cm 1. Uterus: Anteverted 2. Endometrium: thickness is wnl for . Day 29 LMP 3. Right Ovary: enlarged ovary; enlarged ovarian cyst is noted = 4.4 x 3.9 x 4.0cm. 4. Left Ovary: 3.4 x 2.3 x 2.7cm; small follicles seen Spectral, color and waveform Doppler imaging shows good arterial and venous flow within the ovaries ; there is no evidence for ovarian torsion. 5. Bilateral Adnexa: wnl 6. Posterior cul-de-sac: wnl Endometrium measures 8 mm. IMPRESSION: There is a 4 cm cyst on the right ovary. No solid adnexal mass. no evidence of ovarian torsion Normal uterus.
--- NOTE | 2021-07-17 19:36 | CT ---
EXAMINATION TYPE: CT abdomen pelvis w con DATE OF EXAM: 07/17/2021 COMPARISON: None HISTORY: Pelvic pain and vomiting. CT DLP: 691.7 mGycm Automated exposure control for dose reduction was used. CONTRAST: Performed with IV Contrast, patient injected with 100ml mL of Isovue 300. Images obtained from the diaphragm to the floor the pelvis with IV contrast. The lung bases are clear of consolidation. There is no pleural effusion. Heart size is normal. There is no pericardial effusi on. Liver spleen and stomach appear intact. There is small hiatal hernia. There is no pancreatic mass. Ga llbladder appears normal. The bile ducts are not dilated. There is no adrenal mass. Kidneys show satisfactory contrast opacification. There is no hydronephrosi s. Ureters are not dilated. There is no retroperitoneal adenopathy. The bladder distends smoothly. Th ere is no inguinal hernia. There is no free fluid in the pelvis. Uterus is anteverted. There are bila teral ovarian cysts that measure up to 5 cm. There is no solid pelvic mass. There is no mesenteric edema. There is no ascites or free air. There is no bowel obstruction. Appendi x is posterior and appears normal. The lumbar vertebrae have normal spacing and alignment. Posterior elements are intact. There is no co mpression fracture. Bony pelvis is intact. The hip joints are intact. I see no bony destructive proce ss. IMPRESSION: Bilateral ovarian cysts and larger on the right side. No free fluid. Normal appendix.
[2021-07-17] MEDS ORDERED: diphenhydrAMINE 50 MG/ML 1 ML VIAL IVP STA (19:48)
[2021-07-17] MEDS ORDERED: METOCLOPRAMIDE 5 MG/ML 2 ML VIAL IVP STA (19:48)
[2021-07-17 19:57] VITALS: BP 102/77; PULSE 77
== END 2021-07-17 20:35 | disposition home or self-care (01) ==
LOC: EC 15:06
DX: N83.291 Other ovarian cyst, right side (principal); R11.2 Nausea with vomiting, unspecified; F41.9 Anxiety disorder, unspecified; F12.90 Cannabis use, unspecified, uncomplicated
CPT/HCPCS: 99284; 96374; 96375 ×3; 96361; 36415; 80053; 83605; 83690; 85025; 81001; 81025; 93975; 76856; 74177; J1200; J2765; J2405; J1885; Q9967

== ENCOUNTER 2021-08-19 10:54 | Emergency (ER) | payer BC ==
[2021-08-19 10:58] VITALS: RESP 18
--- NOTE | 2021-08-19 12:06 | ED ---
Abdominal Pain HPI - General Chief Complaint: Abdominal Pain Stated Complaint: 8 wks preg, abd pain Time Seen by Provider: 08/19/21 11:28 Source: patient, family, RN notes reviewed Mode of arrival: ambulatory Limitations: no limitations - History of Present Illness Initial Comments: 26-year-old female presents to the emergency Department with chief complaint abdominal pain . Patient states she is A0 currently weeks and 5 days . Patient states that she just an [facility] appointment today in which he to lab work the advised her she had continuing pain to presents emergency from for ultrasound. She denies any vaginal bleeding or vaginal discharge. She has no dysuria no hematuria. She states that he did not check her urine and office. Patient denies any prior abdominal surgeries patient offers no complaints. - Related Data Home Medications Medication Instructions Recorded Confirmed Levothyroxine Sodium [Synthroid] 200 mcg PO DAILY 06/07/16 08/19/21 Pnv,Calcium 72/Iron/Folic Acid 1 tab PO DAILY 08/19/21 08/19/21 [ Plus Tablet] Allergies Allergy/AdvReac Type Severity Reaction Status Date / Time pregabalin [From Lyrica] AdvReac Nausea & Verified 08/19/21 11:44 Vomiting Review of Systems ROS Statement: Those systems with pertinent positive or pertinent negative responses have been documented in the HPI. ROS Other: All systems not noted in ROS Statement are negative. Past Medical History Past Medical History: Fibromyalgia Additional Past Medical History / Comment(s): carpal tunnel, thyroid cancer, covid History of Any Multi-Drug Resistant Organisms: None Reported Past Surgical History: No Surgical Hx Reported Additional Past Surgical History / Comment(s): thyroidectomy, iodine radiation therapy Past Psychological History: Anxiety Smoking Status: Never smoker Past Alcohol Use History: None Reported Past Drug Use History: Marijuana General Exam Limitations: no limitations General appearance: alert, in no apparent distress Head exam: Present: atraumatic, normocephalic, normal inspection Eye exam: Present: normal appearance, PERRL, EOMI. Absent: scleral icterus, conjunctival injection, periorbital swelling Respiratory exam: Present: normal lung sounds bilaterally. Absent: respiratory distress, wheezes, rales, rhonchi, stridor Cardiovascular Exam: Present: regular rate, normal rhythm, normal heart sounds. Absent: systolic murmur, diastolic murmur, rubs, gallop, clicks GI/Abdominal exam: Present: soft, tenderness (Minimal suprapubic), normal bowel sounds. Absent: distended, guarding, rebound, rigid Back exam: Absent: CVA tenderness (R), CVA tenderness (L) Neurological exam: Present: alert Skin exam: Present: warm, dry, intact, normal color. Absent: rash Course Vital Signs 08/19/21 10:55 Temperature 98.4 F Pulse Rate 72 Respiratory 18 Rate Blood Pressure 108/68 O2 Sat by Pulse 98 Oximetry Medical Decision Making - Medical Decision Making 26-year-old presented for lower abdominal pain . Patient has ovarian cyst noted, patient does have viable IUP at 7 weeks and 2 days there is question of irregular shape of the gestational sac. Patient will follow-up with [facility] as it did lab work today. She has no active bleeding no other complaints. - Lab Data Lab Results 08/19/21 Range/Units 11:41 Urine Color Yellow Urine Appearance Cloudy H (Clear) Urine pH 7.5 (5.0-8.0) Ur Specific [place] 1.017 (1.001-1.035) Urine Protein Negative (Negative) Urine Glucose (UA) Negative (Negative) Urine Ketones Negative (Negative) Urine Blood Negative (Negative) Urine Nitrite Negative (Negative) Urine Bilirubin Negative (Negative) Urine Urobilinogen <2.0 (<2.0) mg/dL Ur Leukocyte Esterase Negative (Negative) Urine RBC 2 (0-5) /hpf Ur Squamous Epith Cells <1 (0-4) /hpf Amorphous Sediment Moderate H (None) /hpf Disposition Clinical Impression: Ovarian cyst, Abdominal pain during Disposition: HOME SELF-CARE Condition: Stable Instructions (If sedation given, give patient instructions): Abdominal Pain in (ED) Additional Instructions: Please return to the Emergency Department if symptoms worsen or any other concerns. Is patient prescribed a controlled substance at d/c from ED?: No Referrals: Mike Barrientos DO [Primary Care Provider] - 1-2 days Time of Disposition: 12:46
--- NOTE | 2021-08-19 12:36 | US ---
EXAMINATION TYPE: Transabdominal DATE OF EXAM: 08/19/2021 12:18 PM COMPARISON: 07/17/2021 CLINICAL HISTORY: pain. Pt states cramping, denies bleeding EXAM PERFORMED: Transabdominal (TA) EXAM MEASUREMENTS: GESTATIONAL AGE / DATING Physician Established: Not yet established Dates by LMP: (8 weeks/5 days) EDC: 03/26/2022 Dates by First Scan: No previous this is first scan Dates by Current Scan for: (7 weeks/2 days) EDC: 04/05/2022 MATERNAL ANATOMY Uterus: 8.4 x 5.0 x 5.6 cm Right Ovary: 5.5 x 5.7 x 5.2 cm Left Ovary: 3.0 x 2.9 x 2.2 cm Post CDS / Adnexa: wnl Presence of free fluid: No Presence of corpus luteal cyst: Large simple cyst right ovary= 4.3x 4.5 x 4.3 cm, similar in appearan ce when compared to previous GESTATION / SURVEY CRL: 1.1 cm (7 weeks/2 days) MSD: wnl Yolk Sac (normal less than 6mm): 4mm, ?irregular shape Heart Rate: 156 bpm Rhythm: Normal IUP: Viable IUP Date of LMP: 06/19/2021 Beta HcG (if available): Not available at this time Single, viable IUP/ Questionable irregular shape to yolk sac, large right ovarian cyst IMPRESSION: 1. Viable intrauterine 7 weeks 2 days with a heart rate of 156-shaped yolk sac is somewhat irregular recommend correlation with serial beta-hCG 2. Large simple appearing right ovarian cyst measuring 4.5 cm similar appearance compared to prior ex am.
[2021-08-19 12:39] LABS: Amorphous Sediment,Urine Moderate /hpf; Appearance,Urine Cloudy (Clear); Bilirubin,Urine Negative (Negative); Blood,Urine Negative (Negative); Color,Urine Yellow; Glucose,Urine (UA) Negative (Negative); Ketones,Urine Negative (Negative); Leukocyte Esterase,Urine Negative (Negative); Nitrite,Urine Negative (Negative); PH, Urine 7.5 (5.0-8.0); Protein,Urine Negative (Negative); RBC,Urine 2 /hpf (0-5); Specific Gravity,Urine 1.017 (1.001-1.035); Squamous Epithelial Cell,Urine <1 /hpf (0-4); Urobilinogen,Urine <2.0 mg/dL (<2.0)
[2021-08-19 13:26] VITALS: BP 102/69; PULSE 67; TEMP 98.7
== END 2021-08-19 13:20 | disposition home or self-care (01) ==
LOC: EC 10:54
DX: O26.891 Other specified pregnancy related conditions, first trimester (principal); Z88.8 Allergy status to other drugs, medicaments and biological substances; Z3A.01 Less than 8 weeks gestation of pregnancy
CPT/HCPCS: 76801; 81001; 99284

== ENCOUNTER 2021-08-30 19:50 | Emergency (ER) | payer BC ==
[2021-08-30 20:00] VITALS: BP 113/81; PULSE 95; RESP 18; TEMP 99.1
[2021-08-30] MEDS ORDERED: SODIUM CHLORIDE 0.9% 1,000 ML IV STA (21:10)
[2021-08-30] MEDS ORDERED: ONDANSETRON 4 MG/2 ML VIAL IVP STA ×2 (21:10→22:47)
--- NOTE | 2021-08-30 21:13 | ED ---
General Adult HPI - General Chief complaint: Nausea/Vomiting/Diarrhea Stated complaint: N/V, 10wks Time Seen by Provider: 08/30/21 20:54 Source: patient, RN notes reviewed Mode of arrival: ambulatory - History of Present Illness Initial comments: 26-year-old female, , LMP 06/19/2021, presents to the emergency department for evaluation of lower abdominal cramping discomfort and nausea vomiting, onset this morning. Patient states she is between 8 and 9 weeks and developed a fair amount of nausea yesterday, followed by onset of vomiting today. Patient states she has been unable to tolerate oral intake today. 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 Denies fever, chills, headache, chest pain, shortness of breath, diarrhea, constipation, hematuria, dysuria, or unusual vaginal discharge or bleeding. - Related Data Home Medications Medication Instructions Recorded Confirmed Levothyroxine Sodium [Synthroid] 200 mcg PO DAILY 06/07/16 08/19/21 Pnv,Calcium 72/Iron/Folic Acid 1 tab PO DAILY 08/19/21 08/19/21 [ Plus Tablet] Allergies Allergy/AdvReac Type Severity Reaction Status Date / Time pregabalin [From Lyrica] AdvReac Nausea & Verified 08/30/21 20:00 Vomiting Review of Systems ROS Statement: Those systems with pertinent positive or pertinent negative responses have been documented in the HPI. ROS Other: All systems not noted in ROS Statement are negative. Past Medical History Past Medical History: Fibromyalgia Additional Past Medical History / Comment(s): carpal tunnel, thyroid cancer, covid History of Any Multi-Drug Resistant Organisms: None Reported Past Surgical History: No Surgical Hx Reported Additional Past Surgical History / Comment(s): thyroidectomy, iodine radiation therapy Past Psychological History: Anxiety Smoking Status: Never smoker Past Alcohol Use History: None Reported Past Drug Use History: Marijuana General Exam Limitations: no limitations (Developed, well-nourished female in no acute distress. Initial temperature 99.1, pulse 95, respirations 18, blood pressure 113/81, pulse ox 99% on room air.) General appearance: alert, in no apparent distress ENT exam: Present: normal exam, normal oropharynx, mucous membranes moist Respiratory exam: Present: normal lung sounds bilaterally. Absent: respiratory distress, wheezes, rales, rhonchi, stridor Cardiovascular Exam: Present: regular rate, normal rhythm, normal heart sounds. Absent: systolic murmur, diastolic murmur, rubs, gallop, clicks GI/Abdominal exam: Present: soft, normal bowel sounds. Absent: distended, tenderness, guarding, rebound, rigid Back exam: Absent: CVA tenderness (R), CVA tenderness (L) Neurological exam: Present: alert, oriented X3, CN II-XII intact Psychiatric exam: Present: normal affect, normal mood Skin exam: Present: warm, dry, intact, normal color. Absent: rash Course Vital Signs 08/30/21 19:58 Temperature 99.1 F Pulse Rate 95 Respiratory 18 Rate Blood Pressure 113/81 O2 Sat by Pulse 99 Oximetry - Reevaluation(s) Reevaluation #1: 08/30/21 22:27 Upon reassessment, patient is resting more comfortably. Nausea has significantly improved; she is tolerating apple juice. Updated on findings and will be discharged home to follow up with her [facility] [employer] [facility] as scheduled. Medical Decision Making - Medical Decision Making 26-year-old female, , LMP 06/20/2021 presents to the emergency department for evaluation of nausea and vomiting in . Upon exam, patient is well- appearing and in no acute distress. Vital signs are stable. Abdomen is soft and nontender with no vaginal bleeding or leaking of fluids. Laboratory studies were obtained showing patient is mild dehydration, sodium 133 and urinalysis is positive for trace ketones, protein, and leukocyte esterase. She was given a liter of IV fluids and Zofran for nausea with significant improvement. Ultrasound confirms intrauterine with sufficient growth from previous exam. Right ovarian cyst was noted and patient is aware of this. She is tolerating oral intake. She will be discharged home to follow up with her [employer]. Return parameters were discussed in detail. Patient verbalizes understanding and agrees with this plan. Attending: Matilda. - Lab Data Result diagrams: 08/30/21 21:08/30/21 21:19 Lab Results 08/30/21 08/30/21 08/30/21 Range/Units 21:19 21:19 21:19 WBC 10.6 (3.8-10.6) k/uL RBC 4.02 (3.80-5.40) m/uL Hgb 12.7 (11.4-16.0) gm/dL Hct 38.7 (34.0-46.0) % MCV 96.2 (80.0-100.0) fL MCH 31.5 (25.0-35.0) pg MCHC 32.8 (31.0-37.0) g/dL RDW 12.3 (11.5-15.5) % Plt Count 308 (150-450) k/uL MPV 7.3 Neutrophils % 71 % Lymphocytes % 21 % Monocytes % 5 % Eosinophils % 1 % Basophils % 0 % Neutrophils # 7.6 (1.3-7.7) k/uL Lymphocytes # 2.3 (1.0-4.8) k/uL Monocytes # 0.5 (0-1.0) k/uL Eosinophils # 0.1 (0-0.7) k/uL Basophils # 0.0 (0-0.2) k/uL Sodium 133 L (137-145) mmol/L Potassium 4.0 (3.5-5.1) mmol/L Chloride 102 (98-107) mmol/L Carbon Dioxide 21 L (22-30) mmol/L Anion Gap 10 mmol/L BUN 8 (7-17) mg/dL Creatinine 0.54 (0.52-1.04) mg/dL Est GFR (CKD-EPI)AfAm >90 (>60 ml/min/1.73 sqM) Est GFR (CKD-EPI)NonAf >90 (>60 ml/min/1.73 sqM) Glucose 85 (74-99) mg/dL Calcium 9.6 (8.4-10.2) mg/dL Total Bilirubin 0.9 (0.2-1.3) mg/dL AST 23 (14-36) U/L ALT 36 H (4-34) U/L Alkaline Phosphatase 50 (38-126) U/L Total Protein 7.1 (6.3-8.2) g/dL Albumin 4.1 (3.5-5.0) g/dL HCG, Quant 677278.0 mIU/mL Urine Color Yellow Urine Appearance Cloudy H (Clear) Urine pH 6.0 (5.0-8.0) Ur Specific [place] 1.027 (1.001-1.035) Urine Protein Trace H (Negative) Urine Glucose (UA) Negative (Negative) Urine Ketones Trace H (Negative) Urine Blood Negative (Negative) Urine Nitrite Negative (Negative) Urine Bilirubin Negative (Negative) Urine Urobilinogen <2.0 (<2.0) mg/dL Ur Leukocyte Esterase Trace H (Negative) Urine RBC 2 (0-5) /hpf Urine WBC 4 (0-5) /hpf Ur Squamous Epith Cells 5 H (0-4) /hpf Urine Mucus Many H (None) /hpf Coronavirus (PCR) (Not Detectd) 08/30/21 Range/Units 21:19 WBC (3.8-10.6) k/uL RBC (3.80-5.40) m/uL Hgb (11.4-16.0) gm/dL Hct (34.0-46.0) % MCV (80.0-100.0) fL MCH (25.0-35.0) pg MCHC (31.0-37.0) g/dL RDW (11.5-15.5) % Plt Count (150-450) k/uL MPV Neutrophils % % Lymphocytes % % Monocytes % % Eosinophils % % Basophils % % Neutrophils # (1.3-7.7) k/uL Lymphocytes # (1.0-4.8) k/uL Monocytes # (0-1.0) k/uL Eosinophils # (0-0.7) k/uL Basophils # (0-0.2) k/uL Sodium (137-145) mmol/L Potassium (3.5-5.1) mmol/L Chloride (98-107) mmol/L Carbon Dioxide (22-30) mmol/L Anion Gap mmol/L BUN (7-17) mg/dL Creatinine (0.52-1.04) mg/dL Est GFR (CKD-EPI)AfAm (>60 ml/min/1.73 sqM) Est GFR (CKD-EPI)NonAf (>60 ml/min/1.73 sqM) Glucose (74-99) mg/dL Calcium (8.4-10.2) mg/dL Total Bilirubin (0.2-1.3) mg/dL AST (14-36) U/L ALT (4-34) U/L Alkaline Phosphatase (38-126) U/L Total Protein (6.3-8.2) g/dL Albumin (3.5-5.0) g/dL HCG, Quant mIU/mL Urine Color Urine Appearance (Clear) Urine pH (5.0-8.0) Ur Specific [place] (1.001-1.035) Urine Protein (Negative) Urine Glucose (UA) (Negative) Urine Ketones (Negative) Urine Blood (Negative) Urine Nitrite (Negative) Urine Bilirubin (Negative) Urine Urobilinogen (<2.0) mg/dL Ur Leukocyte Esterase (Negative) Urine RBC (0-5) /hpf Urine WBC (0-5) /hpf Ur Squamous Epith Cells (0-4) /hpf Urine Mucus (None) /hpf Coronavirus (PCR) Not Detected (Not Detectd) - Radiology Data Radiology results: report reviewed, image reviewed Transabdominal ultrasound was obtained. Report was reviewed in its entirety. Impression per Dr. Morley is the ultrasound gestational age is 9 weeks and 3 days. There is a large right ovarian cyst. There is satisfactory growth compared to old exam. Disposition Clinical Impression: Vomiting during , Ovarian cyst, right Disposition: HOME SELF-CARE Condition: Stable Instructions (If sedation given, give patient instructions): Nausea and Vomiting in (ED) Additional Instructions: Consider electrolyte solution such as Pedialyte, Gatorade, Powerade, or coconut water for hydration. Continue utilizing peppermint, lemon water, Tania pops, vitamin B6, and Unisom to help the nausea. Follow up with your [employer] [facility] as scheduled. Return to the emergency department with any new, worsening, or concerning symptoms. Is patient prescribed a controlled substance at d/c from ED?: No Referrals: None,Stated [Primary Care Provider] - 1-2 days Sukhwinder Suazo MD [STAFF PHYSICIAN] - 1-2 days Time of Disposition: 22:50
[2021-08-30 21:29] LABS: Basophils % (A) 0 %; Eosinophils # (A) 0.1 k/uL (0-0.7); Eosinophils % (A) 1 %; HCT 38.7 % (34.0-46.0); HGB 12.7 gm/dL (11.4-16.0); Lymphocytes # (A) 2.3 k/uL (1.0-4.8); Lymphocytes % (A) 21 %; MCH 31.5 pg (25.0-35.0); MCHC 32.8 g/dL (31.0-37.0); MCV 96.2 fL (80.0-100.0); Mean Platelet Volume 7.3; Monocytes # (A) 0.5 k/uL (0-1.0); Monocytes % (A) 5 %; Neutrophils # (A) 7.6 k/uL (1.3-7.7); Neutrophils % (A) 71 %; Platelet Count 308 k/uL (150-450); RBC 4.02 m/uL (3.80-5.40); RDW 12.3 % (11.5-15.5); WBC 10.6 k/uL (3.8-10.6)
[2021-08-30 21:37] LABS: Appearance,Urine Cloudy (Clear); Bilirubin,Urine Negative (Negative); Blood,Urine Negative (Negative); Color,Urine Yellow; Glucose,Urine (UA) Negative (Negative); Ketones,Urine Trace (Negative); Leukocyte Esterase,Urine Trace (Negative); Mucus,Urine Many /hpf; Nitrite,Urine Negative (Negative); Protein,Urine Trace (Negative); RBC,Urine 2 /hpf (0-5); Specific Gravity,Urine 1.027 (1.001-1.035); Squamous Epithelial Cell,Urine 5 /hpf (0-4); Urobilinogen,Urine <2.0 mg/dL (<2.0); WBC,Urine 4 /hpf (0-5)
[2021-08-30 21:43] LABS: ALT 36 U/L (4-34); AST 23 U/L (14-36); African American GFR (CKD) >90 (>60 ml/min/1.73 sqM); Albumin 4.1 g/dL (3.5-5.0); Alkaline Phosphatase 50 U/L (38-126); Anion Gap 10 mmol/L; Blood Urea Nitrogen 8 mg/dL (7-17); Calcium 9.6 mg/dL (8.4-10.2); Carbon Dioxide 21 mmol/L (22-30); Chloride 102 mmol/L (98-107); Glucose 85 mg/dL (74-99); Non-African American GFR(CKD) >90 (>60 ml/min/1.73 sqM); Sodium 133 mmol/L (137-145); Total Bilirubin 0.9 mg/dL (0.2-1.3); Total Protein 7.1 g/dL (6.3-8.2)
--- NOTE | 2021-08-30 22:17 | US ---
EXAMINATION TYPE: Transabdominal DATE OF EXAM: 08/30/2021 9:56 PM COMPARISON: US 08/19/2021 CLINICAL HISTORY: mild lower abdominal cramping, LMP 06/19/21. Minimal cramping, nausea. Hx ovarian cy st. . EXAM PERFORMED: Transabdominal (TA) EXAM MEASUREMENTS: GESTATIONAL AGE / DATING Physician Established: Not yet established. Dates by LMP: (10 weeks/2 days) EDC: 03/26/2022 Dates by First Scan: (8 weeks/6 days) EDC: 04/05/2022 Dates by Current Scan for: (9 weeks/3 days) EDC: 04/01/2022 MATERNAL ANATOMY Uterus: 8.9 x 6.0 x 5.2 cm. Anteverted. Right Ovary: 6.2 x 4.2 x 5.0 cm. Anechoic area seen: 5.7 x 4.1 x 5.0 cm. Arterial and venous waveform s noted within ovary, shown due to ovarian volume > 21 ml. Left Ovary: 2.9 x 2.2 x 1.9 cm. Post CDS / Adnexa: Appear wnl Presence of free fluid: None seen Presence of corpus luteal cyst: Anechoic area seen within right ovary as mentioned above. Presence of subchorionic bleed: Not seen GESTATION / SURVEY CRL: 2.64 cm. (9 weeks/3 days) Yolk Sac (normal less than 6mm): 4.6 mm Heart Rate: 159 bpm Rhythm: Normal IUP: Viable IUP Date of LMP: 06/19/2021 Beta HcG (if available): Not available. IMPRESSION: The ultrasound gestational age is 9 weeks and 3 days. There is large right ovarian cyst. There is sat isfactory growth compared to old exam.
== END 2021-08-30 23:25 | disposition home or self-care (01) ==
LOC: EC 19:50
DX: O34.81 Maternal care for other abnormalities of pelvic organs, first trimester (principal); N83.201 Unspecified ovarian cyst, right side; O21.9 Vomiting of pregnancy, unspecified; Z20.822 Contact with and (suspected) exposure to COVID-19; O99.321 Drug use complicating pregnancy, first trimester; F12.90 Cannabis use, unspecified, uncomplicated; Z3A.09 9 weeks gestation of pregnancy
CPT/HCPCS: 36415; 80053; 85025; 81001; 84702; 87635; 76801; 99284; 96374; 96376; 96361; J2405

== ENCOUNTER 2021-09-15 13:27 | Emergency (ER) | payer BC ==
[2021-09-15 13:38] VITALS: BP 106/73; PULSE 87; RESP 18; TEMP 98.6
[2021-09-15] MEDS ORDERED: ONDANSETRON 4 MG/2 ML VIAL IVP STA (13:50)
[2021-09-15] MEDS ORDERED: SODIUM CHLORIDE 0.9% 1,000 ML IV ONE (13:50)
[2021-09-15] MEDS ORDERED: SODIUM CHLORIDE 0.9% 500 ML 500 ML IV ONE (13:50)
--- NOTE | 2021-09-15 13:53 | ED ---
General Adult HPI - General Chief complaint: Nausea/Vomiting/Diarrhea Stated complaint: 11wks preg, nausea/vomiting Time Seen by Provider: 09/15/21 13:45 Source: patient, RN notes reviewed, old records reviewed Mode of arrival: ambulatory - History of Present Illness Initial comments: This is a 26-year-old female presents emergency Department and is 11 weeks . Patient comes in because she states she's been vomiting she had Zofran in the emergency department the last time she was here and it worked really well but they sent her home on vitamin B6 and Doxylamine and that has not been working. Patient states the Zofran worked well. Patient denies any abdominal pain. Patient denies any vaginal bleeding. Patient denies any back pain. Patient states she had an ultrasound last time she was in the emergency department he told her she had intrauterine patency. Patient states right now she is trying to find herself and opiate follow-up with. Patient denies any recent fever chills per patient denies any dysuria hematuria urinary frequency. - Related Data Home Medications Medication Instructions Recorded Confirmed Levothyroxine Sodium [Synthroid] 200 mcg PO DAILY 06/07/16 08/19/21 Pnv,Calcium 72/Iron/Folic Acid 1 tab PO DAILY 08/19/21 08/19/21 [ Plus Tablet] Previous Rx's Medication Instructions Recorded Ondansetron [Zofran] 4 mg PO Q8HR PRN #10 tab 09/15/21 Allergies Allergy/AdvReac Type Severity Reaction Status Date / Time pregabalin [From Lyrica] AdvReac Nausea & Verified 09/15/21 13:33 Vomiting Review of Systems ROS Statement: Those systems with pertinent positive or pertinent negative responses have been documented in the HPI. ROS Other: All systems not noted in ROS Statement are negative. Past Medical History Past Medical History: Fibromyalgia Additional Past Medical History / Comment(s): carpal tunnel, thyroid cancer, covid History of Any Multi-Drug Resistant Organisms: None Reported Past Surgical History: No Surgical Hx Reported Additional Past Surgical History / Comment(s): thyroidectomy, iodine radiation therapy Past Psychological History: Anxiety Smoking Status: Never smoker Past Alcohol Use History: None Reported Past Drug Use History: Marijuana General Exam - General Exam Comments Initial Comments: GENERAL: Patient is well-developed and well-nourished. Patient is nontoxic and well- hydrated and is in mild distress. ENT: Neck is soft and supple. No significant lymphadenopathy is noted. Oropharynx is clear. Moist mucous membranes. Neck has full range of motion without eliciting any pain. EYES: The sclera were anicteric and conjunctiva were pink and moist. Extraocular movements were intact and pupils were equal round and reactive to light. Eyelids were unremarkable. PULMONARY: Unlabored respirations. Good breath sounds bilaterally. No audible rales rhonchi or wheezing was noted. CARDIOVASCULAR: There is a regular rate and rhythm without any murmurs gallops or rubs. ABDOMEN: Soft and nontender with normal bowel sounds. SKIN: Skin is clear with no lesions or rashes and otherwise unremarkable. NEUROLOGIC: Patient is alert and oriented x3. Cranial nerves II through XII are grossly intact. Motor and sensory are also intact. Normal speech, volume and content. Symmetrical smile. MUSCULOSKELETAL: Normal extremities with adequate strength and full range of motion. LYMPHATICS: No significant lymphadenopathy is noted PSYCHIATRIC: Normal psychiatric evaluation. Course Vital Signs 09/15/21 13:33 Temperature 98.6 F Pulse Rate 87 Respiratory 18 Rate Blood Pressure 106/73 O2 Sat by Pulse 99 Oximetry Medical Decision Making - Medical Decision Making Patient received Zofran and a liter and a half normal saline. I will back and reevaluated the patient she stated she felt much better and was hungry and in fact wanted some chicken McNuggets. - Lab Data Result diagrams: 09/15/21 14:16 09/15/21 14:16 Lab Results 09/15/21 09/15/21 Range/Units 14:16 14:16 WBC 9.4 (3.8-10.6) k/uL RBC 4.12 (3.80-5.40) m/uL Hgb 13.0 (11.4-16.0) gm/dL Hct 38.9 (34.0-46.0) % MCV 94.4 (80.0-100.0) fL MCH 31.5 (25.0-35.0) pg MCHC 33.4 (31.0-37.0) g/dL RDW 12.1 (11.5-15.5) % Plt Count 328 (150-450) k/uL MPV 7.2 Neutrophils % 67 % Lymphocytes % 24 % Monocytes % 5 % Eosinophils % 2 % Basophils % 0 % Neutrophils # 6.3 (1.3-7.7) k/uL Lymphocytes # 2.3 (1.0-4.8) k/uL Monocytes # 0.5 (0-1.0) k/uL Eosinophils # 0.2 (0-0.7) k/uL Basophils # 0.0 (0-0.2) k/uL Sodium 133 L (137-145) mmol/L Potassium 3.9 (3.5-5.1) mmol/L Chloride 102 (98-107) mmol/L Carbon Dioxide 24 (22-30) mmol/L Anion Gap 7 mmol/L BUN 13 (7-17) mg/dL Creatinine 0.48 L (0.52-1.04) mg/dL Est GFR (CKD-EPI)AfAm >90 (>60 ml/min/1.73 sqM) Est GFR (CKD-EPI)NonAf >90 (>60 ml/min/1.73 sqM) Glucose 88 (74-99) mg/dL Calcium 9.2 (8.4-10.2) mg/dL Total Bilirubin 0.6 (0.2-1.3) mg/dL AST 18 (14-36) U/L ALT 16 (4-34) U/L Alkaline Phosphatase 42 (38-126) U/L Total Protein 6.8 (6.3-8.2) g/dL Albumin 3.8 (3.5-5.0) g/dL Disposition Clinical Impression: Hyperemesis gravidarum Disposition: HOME SELF-CARE Condition: Good Instructions (If sedation given, give patient instructions): Hyperemesis Gravidarum (ED) Prescriptions: Ondansetron [Zofran] 4 mg PO Q8HR PRN #10 tab PRN Reason: Nausea And Vomiting Is patient prescribed a controlled substance at d/c from ED?: No Referrals: Nonstaff,Physician [Primary Care Provider] - 1-2 days Time of Disposition: 15:19
[2021-09-15 14:29] LABS: Basophils % (A) 0 %; Eosinophils # (A) 0.2 k/uL (0-0.7); Eosinophils % (A) 2 %; HCT 38.9 % (34.0-46.0); Lymphocytes # (A) 2.3 k/uL (1.0-4.8); Lymphocytes % (A) 24 %; MCH 31.5 pg (25.0-35.0); MCHC 33.4 g/dL (31.0-37.0); MCV 94.4 fL (80.0-100.0); Mean Platelet Volume 7.2; Monocytes # (A) 0.5 k/uL (0-1.0); Monocytes % (A) 5 %; Neutrophils # (A) 6.3 k/uL (1.3-7.7); Neutrophils % (A) 67 %; Platelet Count 328 k/uL (150-450); RBC 4.12 m/uL (3.80-5.40); RDW 12.1 % (11.5-15.5); WBC 9.4 k/uL (3.8-10.6)
[2021-09-15 14:44] LABS: ALT 16 U/L (4-34); AST 18 U/L (14-36); African American GFR (CKD) >90 (>60 ml/min/1.73 sqM); Albumin 3.8 g/dL (3.5-5.0); Alkaline Phosphatase 42 U/L (38-126); Anion Gap 7 mmol/L; Blood Urea Nitrogen 13 mg/dL (7-17); Calcium 9.2 mg/dL (8.4-10.2); Carbon Dioxide 24 mmol/L (22-30); Chloride 102 mmol/L (98-107); Glucose 88 mg/dL (74-99); Non-African American GFR(CKD) >90 (>60 ml/min/1.73 sqM); Potassium 3.9 mmol/L (3.5-5.1); Sodium 133 mmol/L (137-145); Total Bilirubin 0.6 mg/dL (0.2-1.3); Total Protein 6.8 g/dL (6.3-8.2)
== END 2021-09-15 15:46 | disposition home or self-care (01) ==
LOC: EC 13:27
DX: O21.0 Mild hyperemesis gravidarum (principal); O99.321 Drug use complicating pregnancy, first trimester; F12.90 Cannabis use, unspecified, uncomplicated; Z3A.11 11 weeks gestation of pregnancy
CPT/HCPCS: 36415; 80053; 85025; 99284; 96374; 96361; J2405

== ENCOUNTER 2021-11-21 09:32 | Outpatient (CLI) | payer BC ==
[2021-11-21] MEDS ORDERED: LACTATED RINGERS 1,000 ML IV SCH (10:00)
[2021-11-21 10:22] LABS: Amorphous Sediment,Urine Many /hpf; Appearance,Urine Turbid (Clear); Bilirubin,Urine Negative (Negative); Blood,Urine Negative (Negative); Color,Urine Light Yellow; Glucose,Urine (UA) Negative (Negative); Ketones,Urine Negative (Negative); Leukocyte Esterase,Urine Negative (Negative); Nitrite,Urine Negative (Negative); PH, Urine 7.5 (5.0-8.0); Protein,Urine Negative (Negative); RBC,Urine 3 /hpf (0-5); Specific Gravity,Urine 1.011 (1.001-1.035); Squamous Epithelial Cell,Urine 1 /hpf (0-4); Urobilinogen,Urine <2.0 mg/dL (<2.0); WBC,Urine 1 /hpf (0-5)
[2021-11-21 11:00] VITALS: BP 112/58; PULSE 78; RESP 18; TEMP 96.7
--- NOTE | 2021-11-22 15:08 | P.MSEPDOC ---
Presenting Problems - Arrival Data Date of Arrival on Unit: 11/21/21 Time of Arrival on Unit: 09:32 Mode of Transport: Ambulatory - Complaint OB-Reason for Admission/Chief Complaint: Pain Comment: abdominal cramping x 1 hour, pink vaginal spotting Medical History - Information : 1 Para: 0 Term: 0 : 0 Abortions: Spontaneous or Elective: 0 Number of Living Children: 0 - Gestational Age Gestational Age by DIPTI (wks/days): 21 Weeks and 1 Days Review of Systems - Review of Systems Constitutional: No problems Breast: No problems ENT: No problems Cardiovascular: No problems Respiratory: No problems Gastrointestinal: No problems Genitourinary: No problems Musculoskeletal: No problems Neurological: No problems Skin: No problems Vital Signs - Temperature Temperature: 96.7 F Temperature Source: Temporal Artery Scan - Pulse Right Sitting Brachial Pulse Rate: 78 Pulse Assessment Method: Automatic Cuff - Respirations Respiratory Rate: 18 Oxygen Delivery Method: Room Air - Blood Pressure Right Arm Sitting Blood Pressure: 112/58 Blood Pressure Mean: 76 Blood Pressure Source: Automatic Cuff Medical Screen Scoring - Cervical Exam Dilation (cm): 0 Effacement (%): 0 - Uterine Contractions Resting: Soft to palpation - Assessment - Baby A Baseline FHR: 140 Physician Notification - Physician Notified Physician Notified Date: 11/21/21 Physician Notified Time: 10:45 Physician: Jael Hurtado New Order Received: Yes - Notification Comment Comment: dc home, rest & pelvis rest, increase po hydration. Follow up in the office as scheduled. Maternal Triage Index - Maternal Triage Index Presenting for scheduled procedure w/no complaint: No - Stat/Priority 1 Stat Priority 1: No - Urgent/Priority 2 Urgent Priority 2: Yes Provider Notified: Jael Hurtado Provider Notified Time: 09:40 Criteria Met for Priority 2: UA, IV hydration, vaginal exam closed/th/high Disposition - Disposition OB Disposition: Discharge to home Discharge Date: 11/21/21 Discharge Time: 10:50 I agree with the RN Medical Screening Exam: Yes Case reviewed; plan agreed upon as documented in EMR&OBIX.: Yes Diagnosis: RELATED CONDITIONS, UNSPECIFIED, SECOND TRIMESTER
== END 2021-11-21 11:00 | disposition home or self-care (01) ==
LOC: FBPOP 09:32
PROVIDERS: ATTEND Obstetrics & Gynecology Obstetrics
DX: O26.852 Spotting complicating pregnancy, second trimester (principal); Z3A.21 21 weeks gestation of pregnancy; Z87.891 Personal history of nicotine dependence
CPT/HCPCS: 81001; 96360; 99213

== ENCOUNTER 2021-12-30 20:44 | Emergency (ER) | payer BC, OTHER ==
[2021-12-30 20:53] VITALS: BP 115/75; PULSE 106; RESP 20; TEMP 98.2
[2021-12-30] MEDS ORDERED: AMOXIC-POT CLAV 875-125MG 1 EACH TAB PO STA (23:19)
--- NOTE | 2021-12-30 23:23 | ED ---
URI HPI - General Chief Complaint: Upper Respiratory Infection Stated Complaint: Poss bronchitis Time Seen by Provider: 12/30/21 21:19 Source: patient Mode of arrival: ambulatory Limitations: no limitations - History of Present Illness Initial Comments: Patient is a A0 26-year-old female 27 weeks who presents to the emergency department with a chief complaint of congestion and sore throat. Patient states her symptoms started 1 week ago. States her congestion has continued to worsen and causing headache. Denies fever, chills, cough, shortness of breath, chest pain, abdominal pain, nausea, vomiting, and vaginal bleeding. Denies recent sick contacts. - Related Data Home Medications Medication Instructions Recorded Confirmed Levothyroxine Sodium [Synthroid] 200 mcg PO DAILY 06/07/16 09/15/21 Vit No.180/Iron/Folic 1 tab PO DAILY 08/19/21 09/15/21 [ Plus Tablet] Previous Rx's Medication Instructions Recorded Ondansetron [Zofran] 4 mg PO Q8HR PRN #10 tab 09/15/21 Amoxic-Pot Clav 875-125Mg 1 tab PO Q12HR 10 Days #20 tab 12/30/21 [Augmentin 875-125] Allergies Allergy/AdvReac Type Severity Reaction Status Date / Time pregabalin [From Lyrica] AdvReac Nausea & Verified 12/30/21 20:53 Vomiting Review of Systems ROS Statement: Those systems with pertinent positive or pertinent negative responses have been documented in the HPI. ROS Other: All systems not noted in ROS Statement are negative. Past Medical History Past Medical History: Fibromyalgia Additional Past Medical History / Comment(s): carpal tunnel, thyroid cancer, covid History of Any Multi-Drug Resistant Organisms: None Reported Past Surgical History: No Surgical Hx Reported Additional Past Surgical History / Comment(s): thyroidectomy, iodine radiation therapy Past Psychological History: Anxiety Smoking Status: Never smoker Past Alcohol Use History: None Reported Past Drug Use History: None Reported General Exam Limitations: no limitations General appearance: alert, in no apparent distress Head exam: Present: atraumatic, normocephalic, normal inspection Eye exam: Present: normal appearance, PERRL, EOMI. Absent: scleral icterus, conjunctival injection, periorbital swelling ENT exam: Present: normal oropharynx, TM's normal bilaterally Neck exam: Present: normal inspection. Absent: tenderness, meningismus, lymphadenopathy Respiratory exam: Present: normal lung sounds bilaterally. Absent: respiratory distress, wheezes, rales, rhonchi, stridor Cardiovascular Exam: Present: regular rate, normal rhythm, normal heart sounds. Absent: systolic murmur, diastolic murmur, rubs, gallop, clicks GI/Abdominal exam: Present: soft, normal bowel sounds. Absent: distended, tenderness, guarding, rebound, rigid Neurological exam: Present: alert, oriented X3, CN II-XII intact Psychiatric exam: Present: normal affect, normal mood Skin exam: Present: warm, dry, intact, normal color. Absent: rash Course Vital Signs 12/30/21 20:51 Temperature 98.2 F Pulse Rate 106 H Respiratory 20 Rate Blood Pressure 115/75 O2 Sat by Pulse 98 Oximetry Medical Decision Making - Medical Decision Making This is a 26-year-old female who presents with congestion and sore throat. Thorough history and examination were performed. Patient is well- appearing. No abdominal pain or vaginal bleeding. The pharynx is normal- appearing without erythema, swelling or exudate. COVID-19, influenza A/B, strep throat are not detected. Given the symptoms have been occurring for 7 days and worsening I will treat this as bacterial sinusitis. Patient will be discharged without when. She is given first dose in the emergency department. We discussed symptomatic management with hot showers, humidifiers, and nasal saline. Dr. Garcia is my attending. - Lab Data Lab Results 12/30/21 12/30/21 12/30/21 Range/Units 21:52 21:52 21:52 Coronavirus (PCR) Not Detected (Not Detectd) Influenza Type A RNA Not Detected (Not Detectd) Influenza Type B (PCR) Not Detected (Not Detectd) Group A Strep Rapid Negative (Negative) Disposition Clinical Impression: Sinusitis Disposition: HOME SELF-CARE Condition: Good Instructions (If sedation given, give patient instructions): Sinusitis (ED) Additional Instructions: Take medication as directed. Use of nasal saline and warm showers will help with congestion. Follow-up with primary care provider in one to 2 days. Return to the emergency department if you experience new, concerning, or worsening symptoms. Prescriptions: Amoxic-Pot Clav 875-125Mg [Augmentin 875-125] 1 tab PO Q12HR 10 Days #20 tab Is patient prescribed a controlled substance at d/c from ED?: No Referrals: Nonstaff,Physician [Primary Care Provider] - 1-2 days Time of Disposition: 23:23
== END 2021-12-30 23:31 | disposition home or self-care (01) ==
LOC: EC 20:44
DX: O99.512 Diseases of the respiratory system complicating pregnancy, second trimester (principal); J32.9 Chronic sinusitis, unspecified; Z20.822 Contact with and (suspected) exposure to COVID-19; Z86.16 Personal history of COVID-19; Z3A.27 27 weeks gestation of pregnancy; Z79.899 Other long term (current) drug therapy
CPT/HCPCS: 87081; 87430; 87502; 87635; 99284

== ENCOUNTER → 2022-01-05 | Outpatient (CLI) | payer BC, OTHER ==
[2022-01-05 18:15] LABS: HCT 31.6 % (37.2-46.3); MCH 30.5 pg (27.0-32.0); MCHC 31.6 g/dL (32.0-37.0); MCV 96.3 fL (80.0-97.0); Mean Platelet Volume 10.1 fL (9.5-12.2); NRBC Per 100 WBC 0 /100 WBCS (0.0-0.0); Platelet Count 292 X 10*3/uL (140-440); RBC 3.28 X 10*6/uL (4.10-5.20); RDW 13.5 % (11.5-14.5); WBC 9.95 X 10*3/uL (4.50-10.00)
[2022-01-05 18:51] LABS: T4, Free (Free Thyroxine) 0.81 ng/dL (0.800-1.800)
== END | disposition home or self-care (01) ==
LOC: LABWHC1 10:42
PROVIDERS: ATTEND Obstetrics & Gynecology Obstetrics
DX: Z36.9 Encounter for antenatal screening, unspecified (principal); E03.9 Hypothyroidism, unspecified
CPT/HCPCS: 36415; 82950; 84439; 84443; 85027

== ENCOUNTER 2022-01-25 18:02 | Outpatient (CLI) | payer OTHER ==
[2022-01-25 19:24] VITALS: BP 104/57; PULSE 90; RESP 16; TEMP 97.3
--- NOTE | 2022-01-26 07:39 | P.MSEPDOC ---
Presenting Problems - Arrival Data Date of Arrival on Unit: 01/25/22 Time of Arrival on Unit: 18:02 Mode of Transport: Wheelchair - Complaint OB-Reason for Admission/Chief Complaint: Other Comment: pt here with c/o lower right quad pain that radiates to umbilicus for 2 days,. reports pain is more intense when moving around, reports + movements, denies. contractions, denies lof/vb, abd soft and tender near umbillicus, pt denies. complications with , pt states she thinks it is round ligament pain Medical History - Information : 1 Para: 0 Term: 0 : 0 Abortions: Spontaneous or Elective: 0 Number of Living Children: 0 - Gestational Age Gestational Age by DIPTI (wks/days): 30 Weeks and 3 Days Review of Systems - Review of Systems Constitutional: No problems Breast: No problems ENT: No problems Cardiovascular: No problems Respiratory: No problems Gastrointestinal: No problems Genitourinary: No problems Musculoskeletal: No problems Neurological: No problems Skin: No problems Vital Signs - Temperature Temperature: 97.3 F Temperature Source: Temporal Artery Scan - Pulse Right Brachial Pulse Rate: 90 Pulse Assessment Method: Automatic Cuff - Respirations Respiratory Rate: 16 Oxygen Delivery Method: Room Air O2 Sat by Pulse Oximetry: 98 - Blood Pressure Right Arm Blood Pressure: 104/57 Blood Pressure Mean: 72 Blood Pressure Source: Automatic Cuff Medical Screen Scoring - Assessment - Baby A Baseline FHR: 145 Heart Rate - NICHD Category: Category I (Normal) NST: Reactive Physician Notification - Physician Notified Physician Notified Date: 01/25/22 Physician Notified Time: 19:04 Physician: Sarah Albright Order Received: Yes (dc home) Maternal Triage Index - Non-Urgent/Priority 4 Non-Urgent Priority 4: Yes Criteria Met for Priority 4: suggested for pt to try abd support belt for discomfort, reviewed lying on left side using pillows for support, pt verbalizes understanding of no intercourse and need to follow up with dr riley this week Disposition - Disposition OB Disposition: Physician follow up in office, Discharge to home, Written follow up instructions reviewed Discharge Date: 01/25/22 Discharge Time: 19:15 I agree with the RN Medical Screening Exam: Yes Case reviewed; plan agreed upon as documented in EMR&OBIX.: Yes Diagnosis: RELATED CONDITIONS, UNSPECIFIED, SECOND TRIMESTER
== END 2022-01-25 19:15 | disposition home or self-care (01) ==
LOC: FBPOP 18:02
PROVIDERS: ATTEND Obstetrics & Gynecology
DX: O26.893 Other specified pregnancy related conditions, third trimester (principal); R10.31 Right lower quadrant pain; Z3A.30 30 weeks gestation of pregnancy; Z88.8 Allergy status to other drugs, medicaments and biological substances; Z87.891 Personal history of nicotine dependence
CPT/HCPCS: 59025; G0463; 99213

== ENCOUNTER 2022-03-06 22:52 | Outpatient (CLI) | payer OTHER, BC ==
[2022-03-06] MEDS ORDERED: ACETAMINOPHEN TAB 500 MG TAB PO STA (23:33)
[2022-03-07 00:20] LABS: Appearance,Urine Clear (Clear); Bilirubin,Urine Negative (Negative); Blood,Urine Negative (Negative); Color,Urine Light Yellow; Glucose,Urine (UA) Negative (Negative); Ketones,Urine Negative (Negative); Leukocyte Esterase,Urine Trace (Negative); Mucus,Urine Rare /hpf; Nitrite,Urine Negative (Negative); PH, Urine 6.5 (5.0-8.0); Protein,Urine Negative (Negative); RBC,Urine <1 /hpf (0-5); Specific Gravity,Urine 1.013 (1.001-1.035); Squamous Epithelial Cell,Urine 2 /hpf (0-4); Urobilinogen,Urine <2.0 mg/dL (<2.0); WBC,Urine 2 /hpf (0-5)
[2022-03-07 01:09] VITALS: BP 115/71; PULSE 98; RESP 18; TEMP 97.3
--- NOTE | 2022-03-16 09:45 | P.MSEPDOC ---
Presenting Problems - Arrival Data Date of Arrival on Unit: 03/06/22 Time of Arrival on Unit: 22:51 Mode of Transport: Wheelchair - Complaint OB-Reason for Admission/Chief Complaint: Pain Comment: "feels like I'm being punched repeatedly in the stomach." and pelvic pain Medical History - Information : 1 Para: 0 Term: 0 : 0 Abortions: Spontaneous or Elective: 0 Number of Living Children: 0 - Gestational Age Gestational Age by DIPTI (wks/days): 35 Weeks and 6 Days Review of Systems - Review of Systems Constitutional: No problems Breast: No problems ENT: No problems Cardiovascular: No problems Respiratory: No problems Gastrointestinal: No problems Genitourinary: No problems Musculoskeletal: No problems Neurological: No problems Skin: No problems Vital Signs - Temperature Temperature: 97.3 F Temperature Source: Temporal Artery Scan - Pulse Right Pulse Rate: 98 Pulse Assessment Method: Pulse Oximetry - Respirations Respiratory Rate: 18 Oxygen Delivery Method: Room Air O2 Sat by Pulse Oximetry: 97 - Blood Pressure Right Arm Blood Pressure: 115/71 Blood Pressure Mean: 85 Blood Pressure Source: Automatic Cuff Medical Screen Scoring - Cervical Exam Dilation (cm): 0 Membranes: Intact - Assessment - Baby A Baseline FHR: 135 Heart Rate - NICHD Category: Category I (Normal) NST: Reactive Physician Notification - Physician Notified Physician Notified Date: 02/24/22 Physician Notified Time: 23:31 Physician: Sarah Albright Order Received: Yes - Notification Comment Comment: send ua. encourage increase in oral fluids and maternal support belt. pt may have the day off work (tuesday) if working and if pt feels that is necessary. if UA is wnl, pt may be d/c'd home with instructions, keep scheduled f/u appt in office this week Maternal Triage Index - Maternal Triage Index Presenting for scheduled procedure w/no complaint: No - Stat/Priority 1 Stat Priority 1: No - Urgent/Priority 2 Urgent Priority 2: No - Prompt/Priority 3 Prompt Priority 3: Yes Criteria Met for Priority 3: 35/5. abd pain 6/10 unrelated to cntrx. no bleeding or leaking. cervix closed/thick/high. vitals stable. ua wnl Disposition - Disposition OB Disposition: Physician follow up in office, Discharge to home Discharge Date: 03/07/22 Discharge Time: 00:40 I agree with the RN Medical Screening Exam: Yes Case reviewed; plan agreed upon as documented in EMR&OBIX.: Yes Diagnosis: FALSE LABOR BEFORE 37 COMPLETED WEEKS OF GEST, THIRD TRI
== END 2022-03-07 00:40 | disposition home or self-care (01) ==
LOC: FBPOP 22:52
PROVIDERS: ATTEND Obstetrics & Gynecology
DX: O47.03 False labor before 37 completed weeks of gestation, third trimester (principal); Z3A.35 35 weeks gestation of pregnancy; Z87.891 Personal history of nicotine dependence; Z88.8 Allergy status to other drugs, medicaments and biological substances
CPT/HCPCS: 59025; 81001; G0463; 99213

== ENCOUNTER 2022-03-12 08:08 | Outpatient (CLI) | payer OTHER ==
[2022-03-12 09:44] LABS: Glucose,Whole Blood 80 mg/dL (70-110)
[2022-03-12] MEDS ORDERED: LACTATED RINGERS 1,000 ML IV SCH (10:00)
[2022-03-12 10:41] VITALS: BP 110/79; PULSE 88; RESP 16; TEMP 97.1
--- NOTE | 2022-04-13 14:03 | P.MSEPDOC ---
Presenting Problems - Arrival Data Date of Arrival on Unit: 03/12/22 Time of Arrival on Unit: 08:08 Mode of Transport: Ambulatory - Complaint OB-Reason for Admission/Chief Complaint: Rule Out SROM Comment: Amnisure negative Medical History - Information : 1 Para: 0 Term: 0 : 0 Abortions: Spontaneous or Elective: 0 Number of Living Children: 0 - Gestational Age Gestational Age by DIPTI (wks/days): 36 Weeks and 4 Days - History Complications: GDM Review of Systems - Review of Systems Constitutional: No problems Breast: No problems ENT: No problems Cardiovascular: No problems Respiratory: No problems Gastrointestinal: No problems Genitourinary: No problems Musculoskeletal: No problems Neurological: No problems Skin: No problems Vital Signs - Temperature Temperature: 97.1 F Temperature Source: Temporal Artery Scan - Pulse Right Pulse Rate: 88 Pulse Assessment Method: Automatic Cuff - Respirations Respiratory Rate: 16 Oxygen Delivery Method: Room Air - Blood Pressure Right Arm Blood Pressure: 110/79 Blood Pressure Mean: 89 Blood Pressure Source: Automatic Cuff Medical Screen Scoring - Cervical Exam Dilation (cm): 1.5 Effacement (%): 60 Station: -2 Membranes: Intact - Uterine Contractions Frequency From (mins): 3 Frequency To (mins): 6 Duration From (seconds): 50 Duration To (seconds): 60 Intensity: Mild Resting: Soft to palpation - Assessment - Baby A Baseline FHR: 120 Heart Rate - NICHD Category: Category I (Normal) NST: Reactive Physician Notification - Physician Notified Physician Notified Date: 03/12/22 Physician Notified Time: 10:33 Physician: Jael Hurtado New Order Received: Yes (discharge home) Maternal Triage Index - Maternal Triage Index Presenting for scheduled procedure w/no complaint: No - Stat/Priority 1 Stat Priority 1: No - Urgent/Priority 2 Urgent Priority 2: No - Prompt/Priority 3 Prompt Priority 3: Yes Criteria Met for Priority 3: Amnisure negative and no cervical change Disposition - Disposition OB Disposition: Discharge to home Discharge Date: 03/12/22 Discharge Time: 10:45 I agree with the RN Medical Screening Exam: Yes Case reviewed; plan agreed upon as documented in EMR&OBIX.: Yes Diagnosis: FALSE LABOR BEFORE 37 COMPLETED WEEKS OF GEST, THIRD TRI
== END 2022-03-12 10:40 | disposition home or self-care (01) ==
LOC: FBPOP 08:08
PROVIDERS: ATTEND Obstetrics & Gynecology Obstetrics
DX: O47.03 False labor before 37 completed weeks of gestation, third trimester (principal); Z3A.36 36 weeks gestation of pregnancy; Z88.8 Allergy status to other drugs, medicaments and biological substances; Z87.891 Personal history of nicotine dependence
CPT/HCPCS: 59025; 96360; 84112; G0463; 99213; 99214

== ENCOUNTER 2022-03-18 10:45 | Outpatient (CLI) | payer OTHER, BC ==
[2022-03-18 12:41] VITALS: BP 128/86; PULSE 78; RESP 16; TEMP 97.6
== END 2022-03-18 12:40 | disposition home or self-care (01) ==
LOC: FBPOP 10:45
PROVIDERS: ATTEND Obstetrics & Gynecology Obstetrics
DX: Z03.71 Encounter for suspected problem with amniotic cavity and membrane ruled out (principal); Z87.891 Personal history of nicotine dependence; Z88.8 Allergy status to other drugs, medicaments and biological substances
CPT/HCPCS: 59025; 84112; G0463; 99213

== ENCOUNTER 2022-03-19 05:19 | Outpatient (CLI) | payer OTHER, BC ==
[2022-03-19 07:01] VITALS: BP 118/88; PULSE 84; RESP 17; TEMP 97.3
--- NOTE | 2022-03-19 11:44 | P.MSEPDOC ---
Presenting Problems - Arrival Data Date of Arrival on Unit: 03/19/22 Time of Arrival on Unit: 05:19 Mode of Transport: Wheelchair - Complaint OB-Reason for Admission/Chief Complaint: Possible Onset of Labor Comment: Pt presents to triage with c/o contx that are 3-6 minutes apart that have been happening all night. Pt states her contx have been happening for the last 2 weeks on and off Medical History - Information : 1 Para: 0 Term: 0 : 0 Abortions: Spontaneous or Elective: 0 Number of Living Children: 0 - Gestational Age Gestational Age by DIPTI (wks/days): 37 Weeks and 4 Days Review of Systems - Review of Systems Constitutional: No problems Breast: No problems ENT: No problems Cardiovascular: No problems Respiratory: No problems Gastrointestinal: No problems Genitourinary: No problems Musculoskeletal: No problems Neurological: No problems Skin: No problems Vital Signs - Temperature Temperature: 97.3 F Temperature Source: Temporal Artery Scan - Pulse Pulse Oximetery Pulse Rate: 84 Pulse Assessment Method: Pulse Oximetry - Respirations Respiratory Rate: 17 Oxygen Delivery Method: Room Air O2 Sat by Pulse Oximetry: 98 - Blood Pressure Right Arm Blood Pressure: 118/88 Blood Pressure Mean: 98 Blood Pressure Source: Automatic Cuff Medical Screen Scoring - Cervical Exam Dilation (cm): 2 Effacement (%): 50 Station: -2 Membranes: Intact - Uterine Contractions Intensity: Mild Resting: Soft to palpation - Assessment - Baby A Baseline FHR: 125 Heart Rate - NICHD Category: Category I (Normal) NST: Reactive Physician Notification - Physician Notified Physician Notified Date: 03/19/22 Physician Notified Time: 06:29 Physician: Sarai Goss Order Received: Yes - Notification Comment Comment: RN spoke with Dr. Goss regarding triage pt c/o contx that are 3-6 minutes that have been happening all night. Reported on maternal vital signs, category 1 FHT, reactive NST, irregular contx pattern and cervical exam of 2-2.5/50/-2 that remained the same after one hour. Orders received to discharge pt home with labor instructions. Maternal Triage Index - Maternal Triage Index Presenting for scheduled procedure w/no complaint: No - Stat/Priority 1 Stat Priority 1: No - Urgent/Priority 2 Urgent Priority 2: No - Prompt/Priority 3 Prompt Priority 3: No - Non-Urgent/Priority 4 Non-Urgent Priority 4: Yes Criteria Met for Priority 4: > 37 weeks early labor signs Disposition - Disposition OB Disposition: Discharge to home, Written follow up instructions reviewed Discharge Date: 03/19/22 Discharge Time: 06:37 I agree with the RN Medical Screening Exam: Yes Physician's MSE Comment: I have neither seen nor examined the patient. Case reviewed; plan agreed upon as documented in EMR&OBIX.: Yes Diagnosis: RELATED CONDITIONS, UNSPECIFIED, THIRD TRIMESTER
== END 2022-03-19 06:37 | disposition home or self-care (01) ==
LOC: FBPOP 05:19
PROVIDERS: ATTEND Obstetrics & Gynecology
DX: O26.893 Other specified pregnancy related conditions, third trimester (principal); Z3A.37 37 weeks gestation of pregnancy
CPT/HCPCS: 59025; G0463; 99213

== ENCOUNTER 2022-03-21 17:42 | Outpatient (CLI) | payer OTHER, BC ==
[2022-03-21 19:09] VITALS: BP 124/82; PULSE 100; RESP 16; TEMP 97
--- NOTE | 2022-04-05 08:10 | P.MSEPDOC ---
Presenting Problems - Arrival Data Date of Arrival on Unit: 03/21/22 Time of Arrival on Unit: 17:40 Mode of Transport: Ambulatory - Complaint OB-Reason for Admission/Chief Complaint: Other Comment: pt here with c/o contractions that started. around 1100 today as well as decreased movement. since that time, pt reports hx of diet controlled gdm. and hypothyroidism, pt denies lof/vb Medical History - Information : 1 Para: 0 Term: 0 : 0 Abortions: Spontaneous or Elective: 0 Number of Living Children: 0 - Gestational Age Gestational Age by DIPTI (wks/days): 37 Weeks and 6 Days - History Complications: GDM Review of Systems - Review of Systems Constitutional: No problems Breast: No problems ENT: No problems Cardiovascular: No problems Respiratory: No problems Gastrointestinal: No problems Genitourinary: No problems Musculoskeletal: No problems Neurological: No problems Skin: No problems Vital Signs - Temperature Temperature: 97.0 F Temperature Source: Temporal Artery Scan - Pulse Right Brachial Pulse Rate: 100 Pulse Assessment Method: Automatic Cuff - Respirations Respiratory Rate: 16 Oxygen Delivery Method: Room Air O2 Sat by Pulse Oximetry: 98 - Blood Pressure Right Arm Blood Pressure: 124/82 Blood Pressure Mean: 96 Blood Pressure Source: Automatic Cuff Medical Screen Scoring - Cervical Exam Dilation (cm): 3 Effacement (%): 50 Station: -2 Membranes: Intact - Uterine Contractions Frequency From (mins): 3 Frequency To (mins): 8 Duration From (seconds): 80 Duration To (seconds): 150 Intensity: Mild Resting: Soft to palpation - Assessment - Baby A Baseline FHR: 130 Heart Rate - NICHD Category: Category I (Normal) NST: Reactive Physician Notification - Physician Notified Physician Notified Date: 03/21/22 Physician Notified Time: 19:00 Physician: Samantha Delong Order Received: Yes (dc home) Maternal Triage Index - Non-Urgent/Priority 4 Non-Urgent Priority 4: Yes Criteria Met for Priority 4: no cervical change noted Disposition - Disposition OB Disposition: Discharge to home, Written follow up instructions reviewed Discharge Date: 03/21/22 Discharge Time: 19:09 I agree with the RN Medical Screening Exam: Yes Case reviewed; plan agreed upon as documented in EMR&OBIX.: Yes Comments: 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 Diagnosis: rule out labor
== END 2022-03-21 19:10 | disposition home or self-care (01) ==
LOC: FBPOP 17:42
PROVIDERS: ATTEND Obstetrics & Gynecology
DX: O47.1 False labor at or after 37 completed weeks of gestation (principal); Z3A.37 37 weeks gestation of pregnancy; Z87.891 Personal history of nicotine dependence; Z88.8 Allergy status to other drugs, medicaments and biological substances
CPT/HCPCS: 59025; G0463; 99213

== ENCOUNTER 2022-03-22 11:11 | Inpatient (IN) | payer OTHER ==
[2022-03-22] MEDS ORDERED: TERBUTALINE 1 MG/ML VIAL SQ PRN (11:33)
[2022-03-22] MEDS ORDERED: CARBOPROST TROMETHAMINE 250 MCG/ML 1 ML AMP IM PRN (11:33)
[2022-03-22] MEDS ORDERED: OXYTOCIN 10 UNIT/ML 1 ML VIAL IM PRN (11:33)
[2022-03-22] MEDS ORDERED: LIDOCAINE 0.5% (PF) 5 MG/ML (50 ML SDV) SQ PRN (11:33)
[2022-03-22] MEDS ORDERED: METHYLERGONOVINE 0.2 MG/ML 1 ML AMP IM PRN (11:33)
[2022-03-22] MEDS ORDERED: OXYTOCIN 30 UNITS/500 ML NS 30 UNIT in SALINE 1 500ML.BAG IV SCH ×2 (11:45→19:00)
[2022-03-22 12:17] LABS: Basophils % (A) 0 %; Eosinophils # (A) 0.1 k/uL (0-0.7); Eosinophils % (A) 1 %; HCT 32.8 % (34.0-46.0); HGB 10.9 gm/dL (11.4-16.0); Hypochromasia Slight; Lymphocytes # (A) 1.7 k/uL (1.0-4.8); Lymphocytes % (A) 19 %; MCHC 33.3 g/dL (31.0-37.0); MCV 87.1 fL (80.0-100.0); Mean Platelet Volume 9.8; Monocytes # (A) 0.5 k/uL (0-1.0); Monocytes % (A) 5 %; Neutrophils # (A) 6.2 k/uL (1.3-7.7); Neutrophils % (A) 71 %; Platelet Count 260 k/uL (150-450); RBC 3.76 m/uL (3.80-5.40); RDW 15.1 % (11.5-15.5); WBC 8.7 k/uL (3.8-10.6)
[2022-03-22] MEDS: LACTATED RINGERS 1,000 ML IV SCH ×3 (12:19→17:08)
[2022-03-22] MEDS ORDERED: ROPIVACAINE 5 MG/ML 20 ML AMPULE ONE (12:22)
[2022-03-22] MEDS ORDERED: SODIUM CHLORIDE 0.9% 100 ML BAG ONE (12:22)
[2022-03-22] MEDS ORDERED: fentaNYL (PF) 50 MCG/ML 5 ML AMP ONE (12:22)
[2022-03-22 12:48] LABS: Glucose,Whole Blood 93 mg/dL (70-110)
[2022-03-22] MEDS ORDERED: diphenhydrAMINE 50 MG CAP PO PRN (18:52)
[2022-03-22] MEDS ORDERED: HYDROCORTISONE 2.5% RECTAL CREAM 30 GM TUBE RECTAL PRN (18:52)
[2022-03-22] MEDS ORDERED: BENZOCAINE/MENTHOL SPRAY 1 GM/SPRAY AEROSOL TOPICAL PRN (18:52)
[2022-03-22] MEDS ORDERED: diphenhydrAMINE 50 MG/ML 1 ML VIAL IVP PRN ×2 (18:52)
[2022-03-22] MEDS ORDERED: LANOLIN CREAM 5 GM TUBE TOPICAL PRN (18:52)
[2022-03-22] MEDS ORDERED: diphenhydrAMINE 25 MG CAP PO PRN (18:52)
[2022-03-22] MEDS ORDERED: SIMETHICONE 80 MG CHEWABLE PO PRN (18:52)
[2022-03-22] MEDS ORDERED: ZOLPIDEM 5 MG TAB PO PRN (18:52)
--- NOTE | 2022-03-22 19:00 | P.PROBDLV ---
Vaginal Delivery Note - . Vaginal Delivery Note: Findings viable female delivered at 1837, weight of 6 lbs. 5 oz., Apgars of 9 and 9 at one and 5 minutes respectively. 27-year-old at 38-0/7 weeks presented to labor and delivery in active labor. Patient was admitted to labor and delivery and quickly requested epidural. Epidural was placed without difficulty by the anesthesia department. Patient has been receiving routine care which has been complicated by gestational diabetes which was diet-controlled, history of thyroid cancer and thyroidectomy. Patient is very uncontrolled on her thyroid medications. Patient is seen maternal- medicine. Patient was somewhat noncompliant with maternal medicine a thyroid medication. Patient underwent amniotomy and clear fluid was obtained after epidural was placed. Patient had noted spacing of contractions therefore Pitocin augmentation of labor was begun. Patient did progress to complete. With excellent maternal effort patient pushed the infant down to a presentation. Patient continued to push with each contraction and with excellent maternal effort delivered the head followed by the anterior/posterior shoulder, the infant's body was then delivered and placed on the maternal abdomen. Spontaneous cry was noted at . After a two-minute delayed the umbilical cord was doubly clamped and cut. The placenta was delivered spontaneously intact with a three-vessel cord. On inspection of the patient's vaginal vault a second degree midline laceration was appreciated, this was repaired in the usual fashion with 3-0 Rapide after instillation of lidocaine. Uterus was noted be firm and below the umbilicus, estimated blood loss 100 mL. Patient and tolerated delivery well and are resting comfortably.
[2022-03-22] MEDS: LEVOTHYROXINE 125 MCG TAB PO SCH (20:15)
[2022-03-22] MEDS: SENNOSIDES-DOCUSATE SODIUM 1 EACH TAB PO SCH (20:15)
[2022-03-22] MEDS: IBUPROFEN 600 MG TAB PO SCH (20:15)
[2022-03-23] MEDS: IBUPROFEN 600 MG TAB PO SCH ×4 (01:02→19:28)
[2022-03-23 07:08] LABS: Basophils % (A) 0 %; Eosinophils # (A) 0.1 k/uL (0-0.7); Eosinophils % (A) 1 %; HCT 28.6 % (34.0-46.0); HGB 9.6 gm/dL (11.4-16.0); Hypochromasia Slight; Lymphocytes # (A) 1.7 k/uL (1.0-4.8); Lymphocytes % (A) 16 %; MCH 29.9 pg (25.0-35.0); MCHC 33.7 g/dL (31.0-37.0); MCV 88.7 fL (80.0-100.0); Mean Platelet Volume 9.1; Monocytes # (A) 0.7 k/uL (0-1.0); Monocytes % (A) 6 %; Neutrophils # (A) 8.2 k/uL (1.3-7.7); Neutrophils % (A) 76 %; Platelet Count 226 k/uL (150-450); RBC 3.23 m/uL (3.80-5.40); RDW 14.8 % (11.5-15.5); WBC 10.9 k/uL (3.8-10.6)
--- NOTE | 2022-03-23 07:34 | P.PNOBGVD ---
Subjective - Subjective Principal diagnosis: day 1, status post normal spontaneous vaginal delivery Interval history: 27-year-old G1 now P1 status post normal spontaneous vaginal delivery. Patient is doing well this morning. Only complaint is "I'm sore". Lochia is moderate. She is ambulating and voiding without difficulty. She states pain is well- controlled. Tolerating regular diet. Patient reports: Reports appetite normal, Reports voiding normally, Reports pain well controlled, Reports ambulating normally : doing well Objective - Latest Vital Signs Latest vital signs: Vital Signs Temp Pulse Resp BP Pulse Ox 03/23/22 07:27 98.1 F 97 18 136/87 03/23/22 04:00 98.1 F 92 16 116/80 03/23/22 00:00 98.6 F 103 H 17 120/79 97 03/22/22 20:45 97.7 F 109 H 17 122/73 03/22/22 20:15 94 17 115/72 03/22/22 19:45 105 H 17 127/81 03/22/22 19:30 99 17 127/80 03/22/22 19:15 98 17 123/64 03/22/22 19:00 100 17 115/72 03/22/22 18:50 98.4 F 97 18 117/75 03/22/22 11:23 97.7 F 80 18 132/88 98 Intake and Output 03/22/22 03/23/22 03/23/22 22:59 06:59 14:59 Intake Total 173.267 Output Total 200 Balance -26.733 Intake: Intake, IV Titration 173.267 Amount Oxytocin 30 Units/500 ml 173.267 Ns 30 unit In Saline 1 500ml.bag @ Per Protocol IV .Q0M [facility] Rx#:[id number] Output: Output, Quantitative 200 Blood Loss Other: # Voids 1 1 1 - Exam Extremities: Present: normal, edema Abdomen: Present: normal appearance, soft Uterus: Present: normal, firm - Labs Labs: Abnormal Lab Results - Last 24 Hours (Table) 03/22/22 03/23/22 Range/Units 12:02 06:27 WBC 10.9 H (3.8-10.6) k/uL RBC 3.76 L 3.23 L (3.80-5.40) m/uL Hgb 10.9 L 9.6 L (11.4-16.0) gm/dL Hct 32.8 L 28.6 L (34.0-46.0) % Neutrophils # 8.2 H (1.3-7.7) k/uL Assessment and Plan (1) 38 weeks gestation of Current Visit: Yes Status: Acute Code(s): Z3A.38 - 38 WEEKS GESTATION OF SNOMED Code(s): 91357436 (2) Active labor Current Visit: Yes Status: Acute Code(s): MGX3405 - SNOMED Code(s): 043353339 (3) Status post vaginal delivery Current Visit: Yes Status: Acute Code(s): PDS0731 - SNOMED Code(s): 193370005 (4) Obstetric vaginal laceration with second degree perineal laceration Current Visit: Yes Status: Acute Code(s): O70.1 - SECOND DEGREE PERINEAL LACERATION DURING DELIVERY SNOMED Code(s): 499043841 Plan: Patient is doing well . We'll plan to continue routine care and anticipate discharge home tomorrow morning.
[2022-03-23] MEDS: LEVOTHYROXINE 125 MCG TAB PO SCH (09:17)
[2022-03-23] MEDS: PRENATAL VIT-IRON-FOLIC ACID 1 EACH TABLET PO SCH (09:17)
[2022-03-23] MEDS: SENNOSIDES-DOCUSATE SODIUM 1 EACH TAB PO SCH ×2 (09:17→19:29)
[2022-03-23] MEDS: ACETAMINOPHEN TAB 325 MG TAB PO PRN ×2 (10:57→22:55)
[2022-03-23 19:34] VITALS: RESP 16; TEMP 98.2
[2022-03-24] MEDS: IBUPROFEN 600 MG TAB PO SCH ×2 (03:17→08:52)
[2022-03-24] MEDS: ACETAMINOPHEN TAB 325 MG TAB PO PRN (06:13)
[2022-03-24] MEDS: LEVOTHYROXINE 125 MCG TAB PO SCH (06:13)
--- NOTE | 2022-03-24 08:13 | P.DS ---
Providers Date of admission: 03/22/22 11:34 Expected date of discharge: 03/24/22 Attending physician: Jael Hurtado Primary care physician: Stated None - Discharge Diagnosis(es) (1) 38 weeks gestation of Current Visit: Yes Status: Acute (2) Active labor Current Visit: Yes Status: Acute (3) Status post vaginal delivery Current Visit: Yes Status: Acute (4) Obstetric vaginal laceration with second degree perineal laceration Current Visit: Yes Status: Acute Hospital Course: This is a 27-year-old 1 now para 1 that presented to labor and delivery at 38-0/7 weeks in active labor. Patient had been receiving routine care which has been complicated by gestational diabetes, diet controlled. Blood sugars have been well controlled throughout the . In addition patient has a history of thyroid cancer with thyroid ectomy performed years ago. Patient's thyroid was poorly controlled throughout the most likely due to noncompliance. Patient initially stated she was seen in endocrine though they would not see her secondary to her insurance. Patient then was encouraged to see maternal- medicine area patient was noncompliant on following up with them. Patient did eventually see them for counseling and recommendations. Patient was counseled on importance of taking her Synthroid daily. In addition to effects on the fetus. Patient stated understanding. For full details on this patient please see the dictated history and physical. Patient was admitted and uncomfortable at the time of admission therefore requested epidural placement soon after admission. Epidural was placed without difficulty by the anesthesia department. Amniotomy was performed and clear fluid was obtained. Patient did progress to complete began pushing and had a normal spontaneous vaginal delivery of a viable female infant at 1837 on 03/22. Weight of 6 lbs. 5 oz. Patient has done well post . On this day #2 she is ambulating and voiding without difficulty. She is tolerating a regular diet without nausea or vomiting. States her pain is well-controlled. She would like discharge home. Patient Condition at Discharge: Good Plan - Discharge Summary New Discharge Prescriptions: No Action Levothyroxine Sodium [Synthroid] 250 mcg PO DAILY Vit No.180/Iron/Folic [ Plus Tablet] 1 tab PO DAILY Discharge Medication List Levothyroxine Sodium [Synthroid] 250 mcg PO DAILY 06/07/16 [History] Vit No.180/Iron/Folic [ Plus Tablet] 1 tab PO DAILY 08/19/21 [History] Follow up Appointment(s)/Referral(s): Jael Hurtado DO [Doctor of Osteopathic Medicine] - 4 Weeks Patient Instructions/Handouts: Vaginal Delivery (DC), Vaginal Delivery (GEN) Activity/Diet/Wound Care/Special Instructions: Patient is counseled on bleeding. She is encouraged to use [id number] ibuprofen 600 mg as needed for pain. Patient is currently breast-feeding. Patient is asked to call the office for routine visit at 4 weeks. Should patient have any concerns prior to this visit she is urged to call the office. Nothing per vagina until 6 weeks . Discharge Disposition: HOME SELF-CARE
--- NOTE | 2022-03-24 08:47 | P.HPOB ---
History of Present Illness H&P Date: 03/22/22 Chief Complaint: IUP at 38-0/7 weeks This is a 27-year-old 1 para 0 at 38 weeks of that presents to labor and delivery with complaints of regular painful contractions. Patient states she's been mon[place] through the weekend. Patient states she was seen in triage yesterday was noted to be 3 cm and discharged home. Patient on initial evaluation triage today was noted to be 5 cm. Patient appears uncomfortable, and is requesting epidural. Epidural was placed by anesthesia. Patient denies loss of fluid or vaginal bleeding. Patient has been receiving routine care which has been complicated by uncontrolled hypothyroidism, patient has a history of thyroid cancer and her thyroid was removed. Patient has been on extreme amounts of Synthroid throughout the , patient initially was counseled to follow up with endocrine, during Glucola screening TSH was drawn and noted to be elevated. Patient was once again counseled to follow up with endocrine. Patient did not follow-up with endocrine therefore MFM consult was initiated. Patient eventually was able to see MFM. Patient was noncompliant with following up with phone calls for maternal- medicine and consult was just completed at 36 weeks. 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 Patient states that her thyroid has been wildly uncontrolled since her surgery and it is not surprising that her TSH is not under well control. Patient did tell maternal- medic ine that her primary care typically manages her Synthroid dose. In addition patient had a diagnosis of gestational diabetes that was diet controlled. Ultrasound was done normal growth was appreciated, in addition testing at 32 weeks' was initiated and normal in nature. Review of Systems Constitutional: Denies chills, Denies fatigue, Denies fever Ears, nose, mouth and throat: Denies headache Cardiovascular: Reports leg edema Respiratory: Denies dyspnea Gastrointestinal: Denies constipation, Denies diarrhea, Denies nausea, Denies vomiting Genitourinary: Reports Past Medical History Past Medical History: Fibromyalgia Additional Past Medical History / Comment(s): carpal tunnel, thyroid cancer, covid History of Any Multi-Drug Resistant Organisms: None Reported Past Surgical History: No Surgical Hx Reported Additional Past Surgical History / Comment(s): thyroidectomy, iodine radiation therapy Past Anesthesia/Blood Transfusion Reactions: No Reported Reaction Past Psychological History: Anxiety Additional Psychological History / Comment(s): no meds Smoking Status: Former smoker Past Alcohol Use History: None Reported Past Drug Use History: None Reported - Past Family History Mother Family Medical History: No Reported History Medications and Allergies Home Medications Medication Instructions Recorded Confirmed Type Levothyroxine Sodium [Synthroid] 250 mcg PO DAILY 06/07/16 03/21/22 History Vit No.180/Iron/Folic 1 tab PO DAILY 08/19/21 03/21/22 History [ Plus Tablet] Allergies Allergy/AdvReac Type Severity Reaction Status Date / Time pregabalin [From Lyrica] AdvReac Nausea & Verified 03/21/22 18:09 Vomiting Exam Osteopathic Statement: *. No significant issues noted on an osteopathic struct ural exam other than those noted in the History and Physical/Consult. Vital Signs Temp Pulse Resp BP Pulse Ox 03/22/22 11:23 97.7 F 80 18 132/88 98 Intake and Output 03/22/22 03/22/22 03/22/22 06:59 14:59 22:59 Other: Weight 81.193 kg Targeted physical exam is performed and stay in general this a well-nourished well-developed female in no acute distress, breathing is noted to be nonlabored, heart has a regular rate and rhythm, abdomen is gravid and appropriate for gestational age, on cervical exam she is 7/100/-2 station amniotomy is performed and clear fluid was obtained. heart tones are noted to be category 1 and she is monroe every 2 minutes. Results Result Diagrams: 03/22/22 12:02 Abnormal Lab Results - Last 24 Hours (Table) 03/22/22 Range/Units 12:02 RBC 3.76 L (3.80-5.40) m/uL Hgb 10.9 L (11.4-16.0) gm/dL Hct 32.8 L (34.0-46.0) % Assessment and Plan (1) 38 weeks gestation of Current Visit: Yes Status: Acute Code(s): Z3A.38 - 38 WEEKS GESTATION OF SNOMED Code(s): 16530272 (2) Active labor Current Visit: Yes Status: Acute Code(s): OAB6229 - SNOMED Code(s): 442949819 Plan: 27 yo at 38 weeks that presents in active labor. Patient is admitted to labor and delivery. Patient did quickly requested epidural upon admission. After epidural was placed contractions was appreciated therefore Pitocin augmentation of labor was begun. Continue current management and anticipate vaginal delivery.
[2022-03-24] MEDS: SENNOSIDES-DOCUSATE SODIUM 1 EACH TAB PO SCH (08:52)
[2022-03-24 09:08] VITALS: BP 120/85; PULSE 97
[2022-03-24] MEDS: PRENATAL VIT-IRON-FOLIC ACID 1 EACH TABLET PO SCH (09:48)
== END 2022-03-24 10:45 | disposition home or self-care (01) | DRG 807 ==
LOC: FBPOP 11:11 → 4FBP 11:34
PROVIDERS: ADMIT Obstetrics & Gynecology Obstetrics; ATTEND Obstetrics & Gynecology Obstetrics
PROC: 10E0XZZ Delivery of Products of Conception, External Approach (ICD-10-PCS; principal; 2022-03-22)
PROC: 0KQM0ZZ Repair Perineum Muscle, Open Approach (ICD-10-PCS; 2022-03-22)
DX: O24.429 Gestational diabetes mellitus in childbirth, unspecified control (principal); Z37.0 Single live birth; E89.0 Postprocedural hypothyroidism; O70.1 Second degree perineal laceration during delivery; O99.284 Endocrine, nutritional and metabolic diseases complicating childbirth; Z3A.38 38 weeks gestation of pregnancy; Z79.890 Hormone replacement therapy; Z85.850 Personal history of malignant neoplasm of thyroid; Z87.891 Personal history of nicotine dependence; Z91.199 Patient's noncompliance with other medical treatment and regimen due to unspecified reason
CPT/HCPCS: 59025; 85025; 86850; 86900; 86901; 88307; 99213

== ENCOUNTER 2022-06-21 08:45 | Emergency (ER) | payer BC, OTHER ==
[2022-06-21 08:50] VITALS: TEMP 97.9
[2022-06-21] MEDS ORDERED: ONDANSETRON ODT 4 MG TAB PO STA ×2 (09:25→10:35)
--- NOTE | 2022-06-21 09:33 | ED ---
General Adult HPI - General Chief complaint: Dizziness Stated complaint: vision issues, lightheaded Time Seen by Provider: 06/21/22 09:12 Source: patient, RN notes reviewed, old records reviewed Limitations: no limitations - History of Present Illness Initial comments: This is a well-appearing 27-year-old female that presents to the emergency room with complaints of waking up with nausea vomiting diarrhea and dizziness at 5 AM. Patient denies any fevers. She's had 2 episodes of vomiting and 2 episodes of diarrhea. She does have a history of fibromyalgia and thyroid cancer treated with thyroidectomy and radiation. Patient is currently breast-feeding. 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 -: hour(s) (4) Radiation: abdomen Severity scale (1-10): 6 Quality: other (cramping) Improves with: none Associated Symptoms: other (Dizziness, nausea vomiting and diarrhea as 5 AM) - Related Data Home Medications Medication Instructions Recorded Confirmed Levothyroxine Sodium [Synthroid] 200 mcg PO DAILY 06/07/16 06/21/22 Levothyroxine Sodium [Synthroid] 50 mcg PO DAILY 06/21/22 06/21/22 Allergies Allergy/AdvReac Type Severity Reaction Status Date / Time pregabalin [From Lyrica] AdvReac Nausea & Verified 06/21/22 11:15 Vomiting Review of Systems ROS Statement: Those systems with pertinent positive or pertinent negative responses have been documented in the HPI. ROS Other: All systems not noted in ROS Statement are negative. Past Medical History Past Medical History: Fibromyalgia Additional Past Medical History / Comment(s): carpal tunnel, thyroid cancer, covid History of Any Multi-Drug Resistant Organisms: None Reported Past Surgical History: No Surgical Hx Reported Additional Past Surgical History / Comment(s): thyroidectomy, iodine radiation therapy Past Anesthesia/Blood Transfusion Reactions: No Reported Reaction Past Psychological History: Anxiety Smoking Status: Former smoker Past Alcohol Use History: None Reported Past Drug Use History: None Reported - Past Family History Mother Family Medical History: No Reported History General Exam Limitations: no limitations General appearance: alert, in no apparent distress Head exam: Present: atraumatic Eye exam: Absent: conjunctival injection, periorbital swelling Neck exam: Present: full ROM. Absent: tenderness, meningismus Respiratory exam: Present: normal lung sounds bilaterally. Absent: respiratory distress, accessory muscle use Cardiovascular Exam: Present: regular rate GI/Abdominal exam: Present: soft. Absent: distended, tenderness, rigid Extremities exam: Present: normal capillary refill Neurological exam: Present: alert, oriented X3 Psychiatric exam: Present: normal affect, normal mood Skin exam: Present: warm, dry, normal color. Absent: cyanosis, diaphoretic, petechiae, pallor Course Vital Signs 06/21/22 06/21/22 08:48 10:51 Temperature 97.9 F Pulse Rate 84 72 Respiratory 20 18 Rate Blood Pressure 126/93 104/72 O2 Sat by Pulse 99 97 Oximetry - Reevaluation(s) Reevaluation #1: 06/21/22 10:35 Patient states that she does still have some nausea, is requesting a test. Dizziness resolved. 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 EKG shows sinus rhythm with a left axis deviation. No significant change compared to old. Denies any shortness of breath or chest pain. Vital signs are stable. Influenza AB RSV and coronavirus negative. Urinalysis negative, no evidence of . Patient was given Zofran with relief of her symptoms. She was discharged home to follow up with her primary care doctor and return with any new or concerning symptoms. She is agreeable to this plan of care. Case discussed with Dr. Kramer Was pt. sent in by a medical professional or institution? @ -no Did you speak to anyone other than the patient for history? @ -no Did you review nursing and triage notes? @ -yes i agree Were old charts reviewed? @ -old ekg Differential Diagnosis? @ -Differential Dizziness: Benign paroxysmal positional Vertigo, Menieres disease, otitis media, acoustic neuroma, vertebrobasilar insufficiency, hypovolemic, arrhythmia, coronary art angelica syndrome, this is not meant to be an all-inclusive list EKG interpreted by me (3pts min.)? @ -yes as above X-rays interpreted by me (1pt min.)? @ -[none] CT interpreted by me (1pt min.)? @ -[none] U/S interpreted by me (1pt. min.)? @ -[none] What testing was considered but not performed? (CT, X-rays, U/S, labs)? Why? @ [CT, X-rays, U/S, labs? Why?] What meds were considered but not given? Why? @ -labs considered however patient has had no vomiting, abdomen is soft, afebrile, nausea resolved with Zofran Did you discuss the management of the patient with other professionals? @ -no Did you reconcile home meds? @ -no Was smoking cessation discussed for >3mins.? @ -[none] Was critical care preformed (if so, how long)? @ -no Were there social determinants of health that impacted care today? How? (Homelessness, low income, unemployed, alcoholism, drug addiction, transportation, low edu. Level, literacy, decrease access to med. care, fpc, rehab)? @ -none Was there de-escalation of care discussed even if they declined? (Discuss DNR or withdrawal of care, Hospice)? @ -no What co-morbidities impacted this encounter? (DM, HTN, Smoking, COPD, CAD, Cancer, CVA, Hep., AIDS, mental health diagnosis, sleep apnea, morbid obesity)? @ -Fibromyalgia, thyroid cancer treated with radiation Was patient admitted / discharged? @ -discharged Undiagnosed new problem with uncertain prognosis? @ -[none] Drug Therapy requiring intensive monitoring for toxicity (Heparin, Nitro, Insulin, Cardizem)? @ -[none] Were any procedures done? @ -none Diagnosis/symptom? @ -Dizziness, nausea Acute, or Chronic, or Acute on Chronic? @ -acute Uncomplicated (without systemic symptoms) or Complicated (systemic symptoms)? @ -Uncomplicated Side effects of treatment? @ -[none] Exacerbation, Progression, or Severe Exacerbation] @ -[no] Poses a threat to life or bodily function? @ -[no] - Lab Data Lab Results 06/21/22 06/21/22 06/21/22 Range/Units 09:33 10:46 10:46 Urine Color Light Yellow Urine Appearance Clear (Clear) Urine pH 7.5 (5.0-8.0) Ur Specific [place] 1.017 (1.001-1.035) Urine Protein Negative (Negative) Urine Glucose (UA) Negative (Negative) Urine Ketones Negative (Negative) Urine Blood Negative (Negative) Urine Nitrite Negative (Negative) Urine Bilirubin Negative (Negative) Urine Urobilinogen <2.0 (<2.0) mg/dL Ur Leukocyte Esterase Negative (Negative) Urine HCG, Qual Not Detected (Not Detectd) Influenza Type A (PCR) Not Detected (Not Detectd) Influenza Type B (PCR) Not Detected (Not Detectd) RSV (PCR) Not Detected (Not Detectd) SARS-CoV-2 (PCR) Not Detected (Not Detectd) Disposition Clinical Impression: Nausea, Dizziness Disposition: HOME SELF-CARE Condition: Good Instructions (If sedation given, give patient instructions): Acute Nausea and Vomiting (ED), Dizziness (ED) Additional Instructions: Increase your fluid intake. Follow-up with your primary care doctor this week. Return to the emergency room if any new or concerning symptoms. Is patient prescribed a controlled substance at d/c from ED?: No Referrals: Mike Barrientos DO [Primary Care Provider] - 1-2 days Time of Disposition: 11:21
[2022-06-21 10:51] VITALS: BP 104/72; PULSE 72; RESP 18
[2022-06-21 10:58] LABS: Appearance,Urine Clear (Clear); Bilirubin,Urine Negative (Negative); Blood,Urine Negative (Negative); Color,Urine Light Yellow; Glucose,Urine (UA) Negative (Negative); Ketones,Urine Negative (Negative); Leukocyte Esterase,Urine Negative (Negative); Nitrite,Urine Negative (Negative); PH, Urine 7.5 (5.0-8.0); Protein,Urine Negative (Negative); Specific Gravity,Urine 1.017 (1.001-1.035); Urobilinogen,Urine <2.0 mg/dL (<2.0)
== END 2022-06-21 11:34 | disposition home or self-care (01) ==
LOC: EC 08:45
DX: R42 Dizziness and giddiness (principal); R11.2 Nausea with vomiting, unspecified; F41.9 Anxiety disorder, unspecified; Z87.891 Personal history of nicotine dependence; Z88.8 Allergy status to other drugs, medicaments and biological substances; Z20.822 Contact with and (suspected) exposure to COVID-19; Z86.16 Personal history of COVID-19
CPT/HCPCS: 81003; 81025; 87636; 93005; 99284

== ENCOUNTER 2022-06-29 22:23 | Emergency (ER) | payer OTHER ==
[2022-06-29 22:34] VITALS: TEMP 98
[2022-06-29] MEDS ORDERED: SODIUM CHLORIDE 0.9% 1,000 ML IV STA (22:58)
[2022-06-29] MEDS ORDERED: METOCLOPRAMIDE 5 MG/ML 2 ML VIAL IVP STA (22:59)
--- NOTE | 2022-06-29 23:23 | ED ---
Dizziness HPI - General Chief Complaint: Dizziness Stated Complaint: Dizziness, Nausea, Headache Time Seen by Provider: 06/29/22 22:50 Source: patient, RN notes reviewed Mode of arrival: ambulatory Limitations: no limitations - History of Present Illness Initial Comments: This is a 27-year-old female who presents to the emergency department for dizziness. She was evaluated here on 06/21 for the same problem and no acute findings were found. States that she may have had some improvement, however symptoms have now returned. She also has an associated headache, nausea, and vomiting. Symptoms are worse when she tries to move around or turns her head and she describes this as a room spinning sensation. She has some muffling and ringing in the ears. She is currently breast-feeding and has not taken anything to treat her symptoms. Denies any fevers, chills, sore throat, cough, dyspnea, chest pain, palpitations, abdominal pain, diarrhea, or back pain. MD Complaint: dizziness History of Same: Yes History of Trauma: No - Related Data Home Medications Medication Instructions Recorded Confirmed Levothyroxine Sodium [Synthroid] 200 mcg PO DAILY 06/07/16 06/21/22 Levothyroxine Sodium [Synthroid] 50 mcg PO DAILY 06/21/22 06/21/22 Previous Rx's Medication Instructions Recorded Metoclopramide [Reglan] 10 mg PO Q6H PRN #20 tab 06/30/22 Allergies Allergy/AdvReac Type Severity Reaction Status Date / Time pregabalin [From Lyrica] AdvReac Nausea & Verified 06/29/22 22:34 Vomiting Review of Systems ROS Statement: Those systems with pertinent positive or pertinent negative responses have been documented in the HPI. ROS Other: All systems not noted in ROS Statement are negative. Past Medical History Past Medical History: Fibromyalgia Additional Past Medical History / Comment(s): carpal tunnel, thyroid cancer, covid History of Any Multi-Drug Resistant Organisms: None Reported Past Surgical History: No Surgical Hx Reported Additional Past Surgical History / Comment(s): thyroidectomy, iodine radiation therapy Past Anesthesia/Blood Transfusion Reactions: No Reported Reaction Past Psychological History: Anxiety Smoking Status: Former smoker Past Alcohol Use History: None Reported Past Drug Use History: None Reported - Past Family History Mother Family Medical History: No Reported History General Exam Limitations: no limitations General appearance: alert, in no apparent distress Head exam: Present: atraumatic, normocephalic, normal inspection Eye exam: Present: normal appearance, PERRL, EOMI. Absent: scleral icterus, conjunctival injection, periorbital swelling ENT exam: Present: TM's normal bilaterally, normal external ear exam Respiratory exam: Present: normal lung sounds bilaterally. Absent: respiratory distress, wheezes, rales, rhonchi, stridor Cardiovascular Exam: Present: regular rate, normal rhythm, normal heart sounds. Absent: systolic murmur, diastolic murmur, rubs, gallop, clicks GI/Abdominal exam: Present: normal bowel sounds Neurological exam: Present: alert, oriented X3, CN II-XII intact Psychiatric exam: Present: normal affect, normal mood Skin exam: Present: warm, dry, intact, normal color. Absent: rash Course Vital Signs 06/29/22 06/30/22 22:30 00:35 Temperature 98.0 F 98.0 F Pulse Rate 90 87 Respiratory 20 18 Rate Blood Pressure 112/79 117/86 O2 Sat by Pulse 97 98 Oximetry Medical Decision Making - Medical Decision Making This is a 27-year-old female who presents to the emergency department for dizziness. Was pt. sent in by a medical professional or institution? @ -No Did you speak to anyone other than the patient for history? @ -No Did you review nursing and triage notes? @ -Yes, and I agree, it is accurate with regards to the patient's symptoms. Were old charts reviewed? @ -No Differential Diagnosis? @ -Differential Dizziness: Benign paroxysmal positional Vertigo, Menieres disease, otitis media, acoustic neuroma, vertebrobasilar insufficiency, cerebellar stroke, encephalitis, hypovolemic, arrhythmia, coronary artery syndrome, anemia, this is not meant to be an all-inclusive list What testing was considered but not performed? (CT, X-rays, U/S, labs)? Why? @ -None What meds were considered but not given? Why? @ -None Did you discuss the management of the patient with other professionals? @ -No Did you reconcile home meds? @ -No Was smoking cessation discussed for >3mins.? @ -No Was critical care preformed (if so, how long)? @ -No Were there social determinants of health that impacted care today? How? (Homelessness, low income, unemployed, alcoholism, drug addiction, transportation, low edu. Level, literacy, decrease access to med. care, group home, rehab)? @ -No Was there de-escalation of care discussed even if they declined? (Discuss DNR or withdrawal of care, Hospice)? @ -No What co-morbidities impacted this encounter? (DM, HTN, Smoking, COPD, CAD, Cancer, CVA, Hep., AIDS, mental health diagnosis, sleep apnea, morbid obesity)? @ -None Was patient admitted / discharged? @ -Discharged. Lab work obtained and found to be nonactionable. Patient was given IV fluids and Reglan, which resolved her symptoms. She has no focal neurological deficits or evidence of a central lesion. Symptoms most consistent with a vertigo. Prescription for Reglan provided with dosing instructions edmond pinto. Also advised that she remain well-hydrated. We also discussed the half somersault maneuver by Dr. Leslie Quiroz, and I advised that she look this up on YouTube for further instruction. Information for ENT follow-up provided, advised she contact them if symptoms do not improve. Undiagnosed new problem with uncertain prognosis? @ -None Drug Therapy requiring intensive monitoring for toxicity (Heparin, Nitro, Insulin, Cardizem)? @ -None Were any procedures done? @ -None Diagnosis/symptom? @ -BPPV Acute, or Chronic, or Acute on Chronic? @ -Acute Uncomplicated (without systemic symptoms) or Complicated (systemic symptoms)? @ -Uncomplicated Side effects of treatment? @ -None Exacerbation, Progression, or Severe Exacerbation] @ -Not applicable Poses a threat to life or bodily function? @ -No Return precautions reviewed in depth, the patient is instructed to return to the emergency department with any new, worsening, or concerning symptoms. Patient verbalized understanding. This case was discussed in detail with the attending ED physician, Dr. Grey. Presentation, findings, and treatment plan discussed in detail as well. - Lab Data Result diagrams: 06/29/22 23:15 06/29/22 23:15 Lab Results 06/29/22 06/29/22 06/29/22 Range/Units 23:15 23:15 23:15 WBC 8.3 (3.8-10.6) k/uL RBC 4.40 (3.80-5.40) m/uL Hgb 12.8 (11.4-16.0) gm/dL Hct 38.2 (34.0-46.0) % MCV 86.7 (80.0-100.0) fL MCH 29.1 (25.0-35.0) pg MCHC 33.5 (31.0-37.0) g/dL RDW 14.1 (11.5-15.5) % Plt Count 377 (150-450) k/uL MPV 7.3 Neutrophils % 54 % Lymphocytes % 34 % Monocytes % 4 % Eosinophils % 5 % Basophils % 1 % Neutrophils # 4.5 (1.3-7.7) k/uL Lymphocytes # 2.8 (1.0-4.8) k/uL Monocytes # 0.4 (0-1.0) k/uL Eosinophils # 0.4 (0-0.7) k/uL Basophils # 0.1 (0-0.2) k/uL Sodium 137 (137-145) mmol/L Potassium 4.5 (3.5-5.1) mmol/L Chloride 104 (98-107) mmol/L Carbon Dioxide 26 (22-30) mmol/L Anion Gap 7 mmol/L BUN 14 (7-17) mg/dL Creatinine 0.82 (0.52-1.04) mg/dL Est GFR (CKD-EPI)AfAm >90 (>60 ml/min/1.73 sqM) Est GFR (CKD-EPI)NonAf >90 (>60 ml/min/1.73 sqM) Glucose 95 (74-99) mg/dL Calcium 11.2 H (8.4-10.2) mg/dL Total Bilirubin 0.7 (0.2-1.3) mg/dL AST 30 (14-36) U/L ALT 43 H (4-34) U/L Alkaline Phosphatase 81 (38-126) U/L Total Protein 7.8 (6.3-8.2) g/dL Albumin 4.6 (3.5-5.0) g/dL Urine Color Yellow Urine Appearance Cloudy H (Clear) Urine pH 7.0 (5.0-8.0) Ur Specific [place] 1.021 (1.001-1.035) Urine Protein Negative (Negative) Urine Glucose (UA) Negative (Negative) Urine Ketones Negative (Negative) Urine Blood Negative (Negative) Urine Nitrite Negative (Negative) Urine Bilirubin Negative (Negative) Urine Urobilinogen <2.0 (<2.0) mg/dL Ur Leukocyte Esterase Small H (Negative) Urine RBC <1 (0-5) /hpf Urine WBC 15 H (0-5) /hpf Ur Squamous Epith Cells 13 H (0-4) /hpf Amorphous Sediment Rare H (None) /hpf Urine Mucus Rare H (None) /hpf Urine Opiates Screen Not Detected (NotDetected) Ur Oxycodone Screen Not Detected (NotDetected) Urine Methadone Screen Not Detected (NotDetected) Ur Propoxyphene Screen Not Detected (NotDetected) Ur Barbiturates Screen Not Detected (NotDetected) U Tricyclic Antidepress Not Detected (NotDetected) Ur Phencyclidine Scrn Not Detected (NotDetected) Ur Amphetamines Screen Not Detected (NotDetected) U Methamphetamines Scrn Not Detected (NotDetected) U Benzodiazepines Scrn Not Detected (NotDetected) Urine Cocaine Screen Not Detected (NotDetected) U Marijuana (THC) Screen Detected H (NotDetected) Disposition Clinical Impression: BPPV (benign paroxysmal positional vertigo) Disposition: HOME SELF-CARE Instructions (If sedation given, give patient instructions): Vertigo (ED), Benign Paroxysmal Positional Vertigo (ED), Dizziness (ED) Additional Instructions: Return to the emergency department with any new, worsening, or concerning symptoms. You can take the Reglan up to every 6 hours as needed for episodes of vertigo or nausea. Look up the half somersault maneuver by Dr. Leslie Quiroz on YouTube for another treatment option. Contact the ear nose and throat provider as listed below for reevaluation of symptoms. Follow up with your primary care provider in 1-2 days. Prescriptions: Metoclopramide [Reglan] 10 mg PO Q6H PRN #20 tab PRN Reason: Vertigo Is patient prescribed a controlled substance at d/c from ED?: No Referrals: Mike Barrientos DO [Primary Care Provider] - 1-2 days Ray Junior DO [Doctor of Osteopathic Medicine] - 1-2 days
[2022-06-29 23:30] LABS: Basophils # (A) 0.1 k/uL (0-0.2); Basophils % (A) 1 %; Eosinophils # (A) 0.4 k/uL (0-0.7); Eosinophils % (A) 5 %; HCT 38.2 % (34.0-46.0); HGB 12.8 gm/dL (11.4-16.0); Lymphocytes # (A) 2.8 k/uL (1.0-4.8); Lymphocytes % (A) 34 %; MCH 29.1 pg (25.0-35.0); MCHC 33.5 g/dL (31.0-37.0); MCV 86.7 fL (80.0-100.0); Mean Platelet Volume 7.3; Monocytes # (A) 0.4 k/uL (0-1.0); Monocytes % (A) 4 %; Neutrophils # (A) 4.5 k/uL (1.3-7.7); Neutrophils % (A) 54 %; Platelet Count 377 k/uL (150-450); RDW 14.1 % (11.5-15.5); WBC 8.3 k/uL (3.8-10.6)
[2022-06-29 23:43] LABS: Chloride 104 mmol/L (98-107)
[2022-06-29 23:44] LABS: ALT 43 U/L (4-34); AST 30 U/L (14-36); African American GFR (CKD) >90 (>60 ml/min/1.73 sqM); Albumin 4.6 g/dL (3.5-5.0); Alkaline Phosphatase 81 U/L (38-126); Anion Gap 7 mmol/L; Blood Urea Nitrogen 14 mg/dL (7-17); Calcium 11.2 mg/dL (8.4-10.2); Carbon Dioxide 26 mmol/L (22-30); Glucose 95 mg/dL (74-99); Non-African American GFR(CKD) >90 (>60 ml/min/1.73 sqM); Potassium 4.5 mmol/L (3.5-5.1); Sodium 137 mmol/L (137-145); Total Bilirubin 0.7 mg/dL (0.2-1.3); Total Protein 7.8 g/dL (6.3-8.2)
[2022-06-29 23:47] LABS: Amorphous Sediment,Urine Rare /hpf; Appearance,Urine Cloudy (Clear); Bilirubin,Urine Negative (Negative); Blood,Urine Negative (Negative); Color,Urine Yellow; Glucose,Urine (UA) Negative (Negative); Ketones,Urine Negative (Negative); Leukocyte Esterase,Urine Small (Negative); Mucus,Urine Rare /hpf; Nitrite,Urine Negative (Negative); Protein,Urine Negative (Negative); RBC,Urine <1 /hpf (0-5); Specific Gravity,Urine 1.021 (1.001-1.035); Squamous Epithelial Cell,Urine 13 /hpf (0-4); Urobilinogen,Urine <2.0 mg/dL (<2.0); WBC,Urine 15 /hpf (0-5)
[2022-06-30 00:02] LABS: Amphetamine Screen,Urine Not Detected (NotDetected); Barbiturate Screen,Urine Not Detected (NotDetected); Benzodiazepines Screen,Urine Not Detected (NotDetected); Cocaine Screen,Urine Not Detected (NotDetected); Methadone Screen, Urine Not Detected (NotDetected); Opiate Screen,Urine Not Detected (NotDetected); Oxycodone Screen, Urine Not Detected (NotDetected); Phencyclidine Screen,Urine Not Detected (NotDetected); Tricyclic Antidepressant,Urine Not Detected (NotDetected); Urn Cannabinoid Scrn Detected (NotDetected)
[2022-06-30 00:37] VITALS: BP 117/86; PULSE 87; RESP 18
== END 2022-06-30 00:37 | disposition home or self-care (01) ==
LOC: EC 22:23
DX: H81.10 Benign paroxysmal vertigo, unspecified ear (principal); F41.9 Anxiety disorder, unspecified; Z87.891 Personal history of nicotine dependence; Z88.8 Allergy status to other drugs, medicaments and biological substances
CPT/HCPCS: 36415; 80053; 85025; 81001; 80306; 87086; 99284; 96374; 96361; J2765

== ENCOUNTER 2022-08-11 18:58 | Emergency (ER) | payer OTHER ==
[2022-08-11 19:26] VITALS: BP 112/77; PULSE 108; RESP 18; TEMP 98.2
--- NOTE | 2022-08-11 20:20 | ED ---
Chest Pain HPI - General Chief Complaint: Chest Pain Stated Complaint: Carbon Monixide poisoning Time Seen by Provider: 08/11/22 19:43 Source: patient, RN notes reviewed Mode of arrival: ambulatory Limitations: no limitations - History of Present Illness Initial Comments: This is a 27-year-old female who presents to the emergency department for concerns of carbon monoxide poisoning. States that earlier today, her neighbor came over to her house and said that she could smell gas inside of her house. Patient states that they have smelled faint gas over the last couple of days. The gas company came out and said it was related to the furnace, which has since been turned off. She has been experiencing centralized chest pain and pressure all day. Denies any shortness of breath, but states that the pain takes her breath away. She presents with her baby, who has been vomiting all day. Her baby's cushion sewer instructed them to come to the emergency department due to concerns of carbon monoxide poisoning. Denies any fevers, chills, sore throat, cough, palpitations, abdominal pain, nausea, vomiting, diarrhea, back pain, or headaches. MD Complaint: chest pain Onset: during rest Pain Location: substernal Pain Radiation: none - Related Data Home Medications Medication Instructions Recorded Confirmed Levothyroxine Sodium [Synthroid] 200 mcg PO DAILY 06/07/16 06/21/22 Levothyroxine Sodium [Synthroid] 50 mcg PO DAILY 06/21/22 06/21/22 Previous Rx's Medication Instructions Recorded Metoclopramide [Reglan] 10 mg PO Q6H PRN #20 tab 06/30/22 Allergies Allergy/AdvReac Type Severity Reaction Status Date / Time pregabalin [From Lyrica] AdvReac Nausea & Verified 06/29/22 22:34 Vomiting Review of Systems ROS Statement: Those systems with pertinent positive or pertinent negative responses have been documented in the HPI. ROS Other: All systems not noted in ROS Statement are negative. Past Medical History Past Medical History: Fibromyalgia Additional Past Medical History / Comment(s): carpal tunnel, thyroid cancer, covid History of Any Multi-Drug Resistant Organisms: None Reported Past Surgical History: No Surgical Hx Reported Additional Past Surgical History / Comment(s): thyroidectomy, iodine radiation therapy Past Anesthesia/Blood Transfusion Reactions: No Reported Reaction Past Psychological History: Anxiety Smoking Status: Former smoker Past Alcohol Use History: None Reported Past Drug Use History: None Reported - Past Family History Mother Family Medical History: No Reported History General Exam Limitations: no limitations General appearance: alert, in no apparent distress Head exam: Present: atraumatic, normocephalic, normal inspection ENT exam: Present: normal exam, normal oropharynx Respiratory exam: Present: normal lung sounds bilaterally. Absent: respiratory distress, wheezes, rales, rhonchi, stridor, chest wall tenderness Cardiovascular Exam: Present: regular rate, normal rhythm, normal heart sounds. Absent: systolic murmur, diastolic murmur, rubs, gallop, clicks GI/Abdominal exam: Present: soft, normal bowel sounds Neurological exam: Present: alert, oriented X3, CN II-XII intact Psychiatric exam: Present: normal affect, normal mood Skin exam: Present: warm, dry, intact, normal color. Absent: rash Course Vital Signs 08/11/22 19:24 Temperature 98.2 F Pulse Rate 108 H Respiratory 18 Rate Blood Pressure 112/77 O2 Sat by Pulse 94 L Oximetry Chest Pain MDM - MDM This is a 27-year-old female who presents to the emergency department for chest pain and concerns of carbon monoxide poisoning. Was pt. sent in by a medical professional or institution? @ -No Did you speak to anyone other than the patient for history? @ -No Did you review nursing and triage notes? @ -Yes, and I agree, it is accurate with regards to the patient's symptoms. Were old charts reviewed? @ -No Differential Diagnosis? @ -Differential Chest Pain: Stable Angina, Unstable Angina, STEMI, NSTEMI Aortic Dissection, Pneumothorax, Musculoskeletal, Esophageal Spasm GERD, Cholecystitis, Pancreatitis, Zoster, this is not meant to be an all-inclusive list. X-rays interpreted by me (1pt min.)? @ -Chest x-ray obtained, my interpretation identifies no localized consolidations or infiltrates. What testing was considered but not performed? (CT, X-rays, U/S, labs)? Why? @ -None What meds were considered but not given? Why? @ -None Did you discuss the management of the patient with other professionals? @ -No Did you reconcile home meds? @ -No Was smoking cessation discussed for >3mins.? @ -No Was critical care preformed (if so, how long)? @ -No Were there social determinants of health that impacted care today? How? (H omelessness, low income, unemployed, alcoholism, drug addiction, transportation, low edu. Level, literacy, decrease access to med. care, care home, rehab)? @ -No Was there de-escalation of care discussed even if they declined? (Discuss DNR or withdrawal of care, Hospice)? @ -No What co-morbidities impacted this encounter? (DM, HTN, Smoking, COPD, CAD, Cancer, CVA, Hep., AIDS, mental health diagnosis, sleep apnea, morbid obesity)? @ -None Was patient admitted / discharged? @ -Discharged. Lab work obtained and found to be nonactionable, including a negative carbon monoxide level. Chest x-ray reveals no acute findings. VBG is within normal limits as well. Patient was put on 2 L of oxygen via nasal cannula for a period of time in the event she was exposed. I discussed with the patient that the chest pain workup was negative. Advised they double checked their carbon monoxide reader at home and if they start to smell any gas again, to leavae the house immediately and go to a hotel or stay with a friend/family. Otherwise advised ibuprofen and Tylenol as needed for pain relief. Undiagnosed new problem with uncertain prognosis? @ -None Drug Therapy requiring intensive monitoring for toxicity (Heparin, Nitro, Insulin, Cardizem)? @ -None Were any procedures done? @ -None Diagnosis/symptom? @ -Chest pain, Carbon monoxide exposure Acute, or Chronic, or Acute on Chronic? @ -Acute Uncomplicated (without systemic symptoms) or Complicated (systemic symptoms)? @ -Uncomplicated Side effects of treatment? @ -None Exacerbation, Progression, or Severe Exacerbation] @ -Not applicable Poses a threat to life or bodily function? @ -No Return precautions reviewed in depth, the patient is instructed to return to the emergency department with any new, worsening, or concerning symptoms. Patient verbalized understanding. This case was discussed in detail with the attending ED physician, Dr. Griffin. Presentation, findings, and treatment plan discussed in detail as well. Disposition Clinical Impression: Chest pain, Carbon monoxide exposure Disposition: HOME SELF-CARE Instructions (If sedation given, give patient instructions): Chest Pain (ED), Carbon Monoxide Poisoning (ED), Noncardiac Chest Pain (ED) Additional Instructions: Return to the emergency department with any new, worsening, or concerning symptoms. Alternate with ibuprofen and Tylenol as needed for pain relief. Follow up with your primary care provider in 1-2 days. Is patient prescribed a controlled substance at d/c from ED?: No Referrals: None,Stated [REFERRING] - 1-2 days
--- NOTE | 2022-08-11 20:41 | XR ---
EXAMINATION TYPE: XR chest 2V DATE OF EXAM: 08/11/2022 COMPARISON: 03/22/2015 HISTORY: Chest pain. Current monoxide poisoning. TECHNIQUE: 2 views FINDINGS: Heart and mediastinum are normal. Lungs are clear. Diaphragm is normal. Bony thorax is norm al. IMPRESSION: Normal chest. No change
[2022-08-11 21:38] LABS: Basophils # (A) 0.1 k/uL (0-0.2); Basophils % (A) 1 %; Eosinophils # (A) 0.3 k/uL (0-0.7); Eosinophils % (A) 4 %; HCT 36.6 % (34.0-46.0); HGB 12.2 gm/dL (11.4-16.0); Lymphocytes # (A) 2.9 k/uL (1.0-4.8); Lymphocytes % (A) 31 %; MCH 29.7 pg (25.0-35.0); MCHC 33.4 g/dL (31.0-37.0); MCV 88.9 fL (80.0-100.0); Mean Platelet Volume 7.5; Monocytes # (A) 0.5 k/uL (0-1.0); Monocytes % (A) 6 %; Neutrophils # (A) 5.2 k/uL (1.3-7.7); Neutrophils % (A) 57 %; Platelet Count 369 k/uL (150-450); RBC 4.11 m/uL (3.80-5.40); RDW 13.7 % (11.5-15.5); WBC 9.1 k/uL (3.8-10.6)
[2022-08-11 21:58] LABS: VBG PH 7.36 (7.31-7.41)
[2022-08-11 22:06] LABS: ALT 42 U/L (4-34); AST 28 U/L (14-36); African American GFR (CKD) >90 (>60 ml/min/1.73 sqM); Albumin 4.2 g/dL (3.5-5.0); Alkaline Phosphatase 76 U/L (38-126); Anion Gap 8 mmol/L; Blood Urea Nitrogen 17 mg/dL (7-17); Calcium 9.5 mg/dL (8.4-10.2); Carbon Dioxide 24 mmol/L (22-30); Chloride 107 mmol/L (98-107); Glucose 112 mg/dL (74-99); Non-African American GFR(CKD) >90 (>60 ml/min/1.73 sqM); Potassium 3.8 mmol/L (3.5-5.1); Sodium 139 mmol/L (137-145); Total Bilirubin 0.8 mg/dL (0.2-1.3); Total Protein 7.1 g/dL (6.3-8.2)
== END 2022-08-11 22:30 | disposition home or self-care (01) ==
LOC: EC 18:58
DX: T58.91XA Toxic effect of carbon monoxide from unspecified source, accidental (unintentional), initial encounter (principal); R07.9 Chest pain, unspecified; F41.9 Anxiety disorder, unspecified; Z87.891 Personal history of nicotine dependence; Z86.16 Personal history of COVID-19; Z88.8 Allergy status to other drugs, medicaments and biological substances
CPT/HCPCS: 36415; 71046; 80053; 82375; 82803; 84484; 85025; 85379; 99285

== ENCOUNTER → 2022-12-14 | Outpatient (CLI) | payer OTHER ==
[2022-12-14 16:13] LABS: Basophils # (A) 0.04 X 10*3/uL (0.00-0.10); Basophils % (A) 0.6 %; Eosinophils % (A) 4.3 %; HCT 39.8 % (37.2-46.3); HGB 12.6 d/dL (12.0-15.0); Lymphocytes # (A) 2.34 X 10*3/uL (0.90-5.00); Lymphocytes % (A) 33.6 %; MCH 28.8 pg (27.0-32.0); MCHC 31.7 d/dL (32.0-37.0); MCV 90.9 FL (80.0-97.0); Mean Platelet Volume 10.3 FL (9.5-12.2); Monocytes # (A) 0.53 X 10*3/uL (0.20-1.00); Monocytes % (A) 7.6 %; NRBC Per 100 WBC 0 X 10*3/uL (0.00-0.01); Neutrophils # (A) 3.71 X 10*3/uL (1.80-7.70); Neutrophils % (A) 53.2 %; Platelet Count 338 X 10*3/uL (140-440); RBC 4.38 X 10*6/uL (4.10-5.20); RDW 14.6 % (11.5-14.5); WBC 6.97 X 10*3/uL (4.50-10.00)
[2022-12-14 20:40] LABS: ALT 38 U/L (8-44); AST 23 U/L (13-35); Albumin 4.2 d/dL (3.8-4.9); Albumin/Globulin Ratio 1.62 Ratio (1.60-3.17); Alkaline Phosphatase 94 U/L (41-126); BUN/Creat Ratio 19.14 Ratio (12.00-20.00); Blood Urea Nitrogen 13.4 mg/dL (9.0-27.0); Calcium 9.8 mg/dL (8.7-10.3); Carbon Dioxide 24.1 mmol/L (21.6-31.8); Chloride 108 mmol/L (96-109); Chol/HDL Ratio 3.04 Ratio; Globulin 2.6 d/dL (1.6-3.3); Glucose 84 mg/dL (70-110); LDL Cholesterol,Calculated 108.2 mg/dL (0.0-131.0); Potassium 4.7 mmol/L (3.5-5.5); Sodium 142 mmol/L (135-145); T4, Free (Free Thyroxine) 2.71 ng/dL (0.80-1.80); Total Bilirubin 0.6 mg/dL (0.3-1.2); Total Protein 6.8 d/dL (6.2-8.2); VLDL Calculation 11.26 mg/dL (5.00-40.00)
== END | disposition home or self-care (01) ==
LOC: LABWHC1 11:34
PROVIDERS: ATTEND Family Medicine
DX: Z00.00 Encounter for general adult medical examination without abnormal findings (principal)
CPT/HCPCS: 36415; 80053; 80061; 83036; 84439; 84443; 84481; 85025

== ENCOUNTER 2023-01-12 21:42 | Emergency (ER) | payer OTHER ==
[2023-01-12 23:45] LABS: Appearance,Urine Cloudy (Clear); Bacteria,Urine Rare /hpf; Bilirubin,Urine Negative (Negative); Blood,Urine Negative (Negative); Color,Urine Yellow; Glucose,Urine (UA) Negative (Negative); Ketones,Urine Negative (Negative); Leukocyte Esterase,Urine Small (Negative); Mucus,Urine Rare /hpf; Nitrite,Urine Negative (Negative); Protein,Urine Negative (Negative); RBC,Urine 1 /hpf (0-5); Specific Gravity,Urine 1.018 (1.001-1.035); Squamous Epithelial Cell,Urine 15 /hpf (0-4); Urobilinogen,Urine <2.0 mg/dL (<2.0); WBC,Urine 6 /hpf (0-5)
[2023-01-12 23:58] LABS: Basophils % (A) 0 %; Eosinophils # (A) 0.2 k/uL (0-0.7); Eosinophils % (A) 3 %; HCT 37.3 % (34.0-46.0); HGB 12.6 gm/dL (11.4-16.0); Lymphocytes # (A) 2.6 k/uL (1.0-4.8); Lymphocytes % (A) 43 %; MCH 30.5 pg (25.0-35.0); MCHC 33.9 g/dL (31.0-37.0); MCV 90.2 fL (80.0-100.0); Mean Platelet Volume 7.8; Monocytes # (A) 0.4 k/uL (0-1.0); Monocytes % (A) 6 %; Neutrophils # (A) 2.7 k/uL (1.3-7.7); Neutrophils % (A) 45 %; Platelet Count 260 k/uL (150-450); RBC 4.14 m/uL (3.80-5.40); RDW 14.5 % (11.5-15.5); WBC 6.1 k/uL (3.8-10.6)
[2023-01-13 00:38] LABS: ALT 25 U/L (4-34); AST 25 U/L (14-36); African American GFR (CKD) >90 (>60 ml/min/1.73 sqM); Albumin 4.2 g/dL (3.5-5.0); Alkaline Phosphatase 61 U/L (38-126); Anion Gap 7 mmol/L; Blood Urea Nitrogen 16 mg/dL (7-17); Calcium 9.8 mg/dL (8.4-10.2); Carbon Dioxide 23 mmol/L (22-30); Chloride 109 mmol/L (98-107); Glucose 97 mg/dL (74-99); Lipase 130 U/L (23-300); Magnesium 2.1 mg/dL (1.6-2.3); Non-African American GFR(CKD) >90 (>60 ml/min/1.73 sqM); Potassium 4.2 mmol/L (3.5-5.1); Sodium 139 mmol/L (137-145); Total Bilirubin 0.9 mg/dL (0.2-1.3); Total Protein 7.1 g/dL (6.3-8.2)
[2023-01-13 01:13] LABS: HCG,Quantitative Serum <2.4 mIU/mL
--- NOTE | 2023-01-13 01:21 | ED ---
General Adult HPI - General Chief complaint: Abdominal Pain Stated complaint: Ovarian Cyst Rupture Time Seen by Provider: 01/12/23 22:51 Source: patient Mode of arrival: ambulatory Limitations: no limitations - History of Present Illness Initial comments: This is a 27-year-old female with a past medical history including previous thyroid cancer in remission as well as previously known left ovarian cyst presents emergency department for left lower abdominal pain. The patient stated this abdominal pain is been present over the last 2 days and is intermittent. The patient stated that the pain began as a sharp stabbing pain in the left lower quadrant severe to her previous ovarian cyst pain but stated that the pain is now persistent which made her concerned. The patient denied any nausea or vomiting at denied any vaginal discharge or bleeding. The patient stated that she gave approximately 10 months ago and has not had a menstrual cycle since so she is unaware if she is or not as she is having similar symptoms. The patient denied any other acute pain or complaint at this time. - Related Data Home Medications Medication Instructions Recorded Confirmed Levothyroxine Sodium [Synthroid] 200 mcg PO DAILY 06/07/16 06/21/22 Levothyroxine Sodium [Synthroid] 50 mcg PO DAILY 06/21/22 06/21/22 Previous Rx's Medication Instructions Recorded Metoclopramide [Reglan] 10 mg PO Q6H PRN #20 tab 06/30/22 Allergies Allergy/AdvReac Type Severity Reaction Status Date / Time pregabalin [From Lyrica] AdvReac Nausea & Verified 01/12/23 22:18 Vomiting Review of Systems ROS Statement: Those systems with pertinent positive or pertinent negative responses have been documented in the HPI. ROS Other: All systems not noted in ROS Statement are negative. Past Medical History Past Medical History: Fibromyalgia Additional Past Medical History / Comment(s): carpal tunnel, thyroid cancer, covid History of Any Multi-Drug Resistant Organisms: None Reported Past Surgical History: No Surgical Hx Reported Additional Past Surgical History / Comment(s): thyroidectomy, iodine radiation therapy Past Anesthesia/Blood Transfusion Reactions: No Reported Reaction Past Psychological History: Anxiety Smoking Status: Former smoker Past Alcohol Use History: None Reported Past Drug Use History: None Reported - Past Family History Mother Family Medical History: No Reported History General Exam Limitations: no limitations General appearance: alert, in no apparent distress Head exam: Present: atraumatic, normocephalic Eye exam: Present: normal appearance, PERRL Pupils: Present: normal accommodation ENT exam: Present: normal exam, normal oropharynx, mucous membranes moist Neck exam: Present: normal inspection, full ROM Respiratory exam: Present: normal lung sounds bilaterally Cardiovascular Exam: Present: regular rate, normal rhythm, normal heart sounds GI/Abdominal exam: Present: soft, tenderness (TTP over the left lower abdomen), normal bowel sounds Extremities exam: Present: normal inspection, full ROM Back exam: Present: normal inspection, full ROM Neurological exam: Present: alert, oriented X3, CN II-XII intact Psychiatric exam: Present: normal affect, normal mood Skin exam: Present: warm, dry Course Vital Signs 01/12/23 01/13/23 22:14 02:15 Temperature 98.7 F 97.9 F Pulse Rate 68 69 Respiratory 20 16 Rate Blood Pressure 109/76 125/70 O2 Sat by Pulse 96 99 Oximetry Medical Decision Making - Medical Decision Making Was pt. sent in by a medical professional or institution (, PA, SMALL BUSINESS CONSULTANT, urgent care, hospital, or intermediate...) When possible be specific @ -No Did you speak to anyone other than the patient for history (EMS, parent, family, police, friend...)? What history was obtained from this source @ -No Did you review nursing and triage notes (agree or disagree)? Why? @ -I reviewed and agree with nursing and triage notes Were old charts reviewed (outside hosp., previous admission, EMS record, old EKG, old radiological studies, urgent care reports/EKG's, intermediate records)? Report findings @ -No old charts were reviewed Differential Diagnosis (chest pain, altered mental status, abdominal pain women, abdominal pain men, vaginal bleeding, weakness, fever, dyspnea, syncope, headache, dizziness, GI bleed, back pain, seizure, CVA, palpatations, mental health)? @ -Ovarian cyst, ovarian torsion, intrauterine , ectopic EKG interpreted by me (3pts min.). @ -None X-rays interpreted by me (1pt min.). @ -None done CT interpreted by me (1pt min.). @ -None done U/S interpreted by me (1pt. min.). @ -Pelvic ultrasound was obtained and was interpreted by myself showing a 6.2 cm simple right ovarian cyst that measured 5.7 cm and prior exam. There was normal blood flow to bilateral ovaries. What testing was considered but not performed or refused? (CT, X-rays, U/S, labs)? Why? @ -None What meds were considered but not given or refused? Why? @ -None Did you discuss the management of the patient with other professionals (professionals i.e. , PA, SMALL BUSINESS CONSULTANT, lab, RT, psych nurse, social media sr strategy manager, lining vamper, teacher, licensed mortgage loan officer, pillowcase cutter)? Give summary @ -No Was smoking cessation discussed for >3mins.? @ -No Was critical care preformed (if so, how long)? @ -No Were there social determinants of health that impacted care today? How? (Homelessness, low income, unemployed, alcoholism, drug addiction, transportation, low edu. Level, literacy, decrease access to med. care, [facility], rehab)? @ -No Was there de-escalation of care discussed even if they declined (Discuss DNR or withdrawal of care, Hospice)? DNR status @ -No What co-morbidities impacted this encounter? (DM, HTN, Smoking, COPD, CAD, Cancer, CVA, ARF, Chemo, Hep., AIDS, mental health diagnosis, sleep apnea, morbid obesity)? @ -None Was patient admitted / discharged? Hospital course, mention meds given and route, prescriptions, significant lab abnormalities, going to OR and other pertinent info. @ -This was seen and evaluated emergency department. Physical exam, the patient was resting in bed without any acute distress. Vital signs admission were stable. Due to the nature the patient's complaints, laboratory workup was obtained as was an ultrasound of the pelvis. All laboratory workup was within normal limits and the patient was not . While waiting for the Ultram results, there was significant delay secondary to radiology read and the patient decided not to wait for the results and instead eloped from the emergency department while I was seeing another patient. The patient eloped in stable condition. Undiagnosed new problem with uncertain prognosis? @ -No Drug Therapy requiring intensive monitoring for toxicity (Heparin, Nitro, Insulin, Cardizem)? @ -No Were any procedures done? @ -No Diagnosis/symptom? @ -Abdominal pain, ovarian cyst Acute, or Chronic, or Acute on Chronic? @ -Acute on chronic Uncomplicated (without systemic symptoms) or Complicated (systemic symptoms)? @ -Uncomplicated Side effects of treatment? @ -No Exacerbation, Progression, or Severe Exacerbation? @ -No Poses a threat to life or bodily function? How? (Chest pain, USA, MS, pneumonia, PE, COPD, DKA, ARF, appy, cholecystitis, CVA, Diverticulitis, Homicidal, Suicidal, threat to staff... and all critical care pts) @ -No - Lab Data Result diagrams: 01/12/23 23:53 01/12/23 23:53 Lab Results 01/12/23 01/12/23 01/12/23 Range/Units 23:27 23:27 23:53 WBC 6.1 (3.8-10.6) k/uL RBC 4.14 (3.80-5.40) m/uL Hgb 12.6 (11.4-16.0) gm/dL Hct 37.3 (34.0-46.0) % MCV 90.2 (80.0-100.0) fL MCH 30.5 (25.0-35.0) pg MCHC 33.9 (31.0-37.0) g/dL RDW 14.5 (11.5-15.5) % Plt Count 260 (150-450) k/uL MPV 7.8 Neutrophils % 45 % Lymphocytes % 43 % Monocytes % 6 % Eosinophils % 3 % Basophils % 0 % Neutrophils # 2.7 (1.3-7.7) k/uL Lymphocytes # 2.6 (1.0-4.8) k/uL Monocytes # 0.4 (0-1.0) k/uL Eosinophils # 0.2 (0-0.7) k/uL Basophils # 0.0 (0-0.2) k/uL Sodium (137-145) mmol/L Potassium (3.5-5.1) mmol/L Chloride (98-107) mmol/L Carbon Dioxide (22-30) mmol/L Anion Gap mmol/L BUN (7-17) mg/dL Creatinine (0.52-1.04) mg/dL Est GFR (CKD-EPI)AfAm (>60 ml/min/1.73 sqM) Est GFR (CKD-EPI)NonAf (>60 ml/min/1.73 sqM) Glucose (74-99) mg/dL Calcium (8.4-10.2) mg/dL Magnesium (1.6-2.3) mg/dL Total Bilirubin (0.2-1.3) mg/dL AST (14-36) U/L ALT (4-34) U/L Alkaline Phosphatase (38-126) U/L Total Protein (6.3-8.2) g/dL Albumin (3.5-5.0) g/dL Lipase (23-300) U/L HCG, Quant mIU/mL Urine Color Yellow Urine Appearance Cloudy H (Clear) Urine pH 8.0 (5.0-8.0) Ur Specific [place] 1.018 (1.001-1.035) Urine Protein Negative (Negative) Urine Glucose (UA) Negative (Negative) Urine Ketones Negative (Negative) Urine Blood Negative (Negative) Urine Nitrite Negative (Negative) Urine Bilirubin Negative (Negative) Urine Urobilinogen <2.0 (<2.0) mg/dL Ur Leukocyte Esterase Small H (Negative) Urine RBC 1 (0-5) /hpf Urine WBC 6 H (0-5) /hpf Ur Squamous Epith Cells 15 H (0-4) /hpf Urine Bacteria Rare H (None) /hpf Urine Mucus Rare H (None) /hpf Urine HCG, Qual Not Detected (Not Detectd) 01/12/23 Range/Units 23:53 WBC (3.8-10.6) k/uL RBC (3.80-5.40) m/uL Hgb (11.4-16.0) gm/dL Hct (34.0-46.0) % MCV (80.0-100.0) fL MCH (25.0-35.0) pg MCHC (31.0-37.0) g/dL RDW (11.5-15.5) % Plt Count (150-450) k/uL MPV Neutrophils % % Lymphocytes % % Monocytes % % Eosinophils % % Basophils % % Neutrophils # (1.3-7.7) k/uL Lymphocytes # (1.0-4.8) k/uL Monocytes # (0-1.0) k/uL Eosinophils # (0-0.7) k/uL Basophils # (0-0.2) k/uL Sodium 139 (137-145) mmol/L Potassium 4.2 (3.5-5.1) mmol/L Chloride 109 H (98-107) mmol/L Carbon Dioxide 23 (22-30) mmol/L Anion Gap 7 mmol/L BUN 16 (7-17) mg/dL Creatinine 0.67 (0.52-1.04) mg/dL Est GFR (CKD-EPI)AfAm >90 (>60 ml/min/1.73 sqM) Est GFR (CKD-EPI)NonAf >90 (>60 ml/min/1.73 sqM) Glucose 97 (74-99) mg/dL Calcium 9.8 (8.4-10.2) mg/dL Magnesium 2.1 (1.6-2.3) mg/dL Total Bilirubin 0.9 (0.2-1.3) mg/dL AST 25 (14-36) U/L ALT 25 (4-34) U/L Alkaline Phosphatase 61 (38-126) U/L Total Protein 7.1 (6.3-8.2) g/dL Albumin 4.2 (3.5-5.0) g/dL Lipase 130 (23-300) U/L HCG, Quant <2.4 mIU/mL Urine Color Urine Appearance (Clear) Urine pH (5.0-8.0) Ur Specific [place] (1.001-1.035) Urine Protein (Negative) Urine Glucose (UA) (Negative) Urine Ketones (Negative) Urine Blood (Negative) Urine Nitrite (Negative) Urine Bilirubin (Negative) Urine Urobilinogen (<2.0) mg/dL Ur Leukocyte Esterase (Negative) Urine RBC (0-5) /hpf Urine WBC (0-5) /hpf Ur Squamous Epith Cells (0-4) /hpf Urine Bacteria (None) /hpf Urine Mucus (None) /hpf Urine HCG, Qual (Not Detectd) Disposition Clinical Impression: Abdominal pain Disposition: LEFT AGAINST MEDICAL ADVICE Condition: Stable Is patient prescribed a controlled substance at d/c from ED?: No Referrals: Rosas Trujillo MD [Primary Care Provider] - 1-2 days Time of Disposition: 02:00
[2023-01-13 02:16] VITALS: BP 125/70; PULSE 69; RESP 16; TEMP 97.9
--- NOTE | 2023-01-13 02:25 | US ---
EXAM: US Pelvis Transabdominal, Complete CLINICAL HISTORY: ITS.REASON US Reason: Left lower abd pain, previous cyst TECHNIQUE: Real-time complete transabdominal pelvic ultrasound with image documentation. COMPARISON: 08/30/2021 FINDINGS: Uterus/cervix: Uterus measures 6.9 x 3.3 x 4.6 cm. Normal endometrial stripe thickness measuring 0.6 cm. No myometrial mass. Right ovary: Right ovary measures 7.2 x 5.3 x 5.5 cm. 6.2 cm simple right ovarian cyst which measured 5.7 cm on prior exam. Normal blood flow. Left ovary: Left ovary measures 2.6 x 1.9 x 2.5 cm. Normal blood flow. Free fluid: No free fluid. Bladder: Unremarkable as visualized. Wall is normal thickness for degree of distention. IMPRESSION: 6.2 cm simple right ovarian cyst which measured 5.7 cm on prior exam.
== END 2023-01-13 02:16 | disposition left against medical advice (07) ==
LOC: EC 21:42
DX: N83.291 Other ovarian cyst, right side (principal); Z79.890 Hormone replacement therapy; Z88.8 Allergy status to other drugs, medicaments and biological substances; Z85.850 Personal history of malignant neoplasm of thyroid; Z86.16 Personal history of COVID-19; Z87.891 Personal history of nicotine dependence; Z53.29 Procedure and treatment not carried out because of patient's decision for other reasons
CPT/HCPCS: 36415; 76856; 80053; 81001; 81025; 83690; 83735; 84702; 85025; 93975; 99284

== ENCOUNTER 2023-05-14 17:27 | Emergency (ER) | payer OTHER ==
[2023-05-14] MEDS ORDERED: SODIUM CHLORIDE 0.9% 1,000 ML IV ONE (17:51)
[2023-05-14 17:57] VITALS: BP 110/77
[2023-05-14] MEDS ORDERED: ONDANSETRON ODT 4 MG TAB PO STA (18:15)
[2023-05-14 18:18] LABS: Basophils % (A) 0 %; Eosinophils # (A) 0.4 k/uL (0-0.7); Eosinophils % (A) 4 %; HCT 39.2 % (34.0-46.0); Lymphocytes # (A) 2.1 k/uL (1.0-4.8); Lymphocytes % (A) 22 %; MCH 30.7 pg (25.0-35.0); MCHC 33.1 g/dL (31.0-37.0); MCV 92.6 fL (80.0-100.0); Mean Platelet Volume 7.2; Monocytes # (A) 0.3 k/uL (0-1.0); Monocytes % (A) 3 %; Neutrophils # (A) 6.5 k/uL (1.3-7.7); Neutrophils % (A) 69 %; Platelet Count 296 k/uL (150-450); RBC 4.24 m/uL (3.80-5.40); RDW 13.8 % (11.5-15.5); WBC 9.4 k/uL (3.8-10.6)
[2023-05-14 18:34] LABS: Appearance,Urine Cloudy (Clear); Bacteria,Urine Rare /hpf; Bilirubin,Urine Negative (Negative); Blood,Urine Negative (Negative); Color,Urine Light Yellow; Glucose,Urine (UA) Negative (Negative); Ketones,Urine Negative (Negative); Leukocyte Esterase,Urine Negative (Negative); Mucus,Urine Occasional /hpf; Nitrite,Urine Negative (Negative); Protein,Urine Negative (Negative); Squamous Epithelial Cell,Urine 2 /hpf (0-4); Urobilinogen,Urine <2.0 mg/dL (<2.0); WBC,Urine 2 /hpf (0-5)
[2023-05-14 18:45] LABS: ALT 41 U/L (4-34); AST 39 U/L (14-36); African American GFR (CKD) >90 (>60 ml/min/1.73 sqM); Albumin 4.7 g/dL (3.5-5.0); Alkaline Phosphatase 70 U/L (38-126); Anion Gap 12 mmol/L; Blood Urea Nitrogen 18 mg/dL (7-17); Calcium 10.6 mg/dL (8.4-10.2); Carbon Dioxide 22 mmol/L (22-30); Chloride 101 mmol/L (98-107); Glucose 85 mg/dL (74-99); Non-African American GFR(CKD) >90 (>60 ml/min/1.73 sqM); Potassium 4.2 mmol/L (3.5-5.1); Sodium 135 mmol/L (137-145); Total Bilirubin 0.9 mg/dL (0.2-1.3)
[2023-05-14 19:01] LABS: HCG,Quantitative Serum <2.4 mIU/mL
--- NOTE | 2023-05-14 19:44 | ED ---
General Adult HPI - General Chief complaint: Dizziness Stated complaint: N/V headache Time Seen by Provider: 05/14/23 17:44 Source: patient, RN notes reviewed Mode of arrival: ambulatory Limitations: no limitations - History of Present Illness Initial comments: 28-year-old female with past medical history significant for thyroid cancer presents to the emergency department with a chief complaint of dizziness. She is also complaining of accompanying and vomiting and lower back pain that she describes as cramping and worse with movement. She is unsure if she is . She reports that she is approximately one week past due for her men strual cycle. She denies recent sick contacts. Denies fever without paresthesia or loss of bowel or bladder function. Denies injury or trauma. She does report that she is currently breast-feeding. - Related Data Home Medications Medication Instructions Recorded Confirmed Levothyroxine Sodium [Synthroid] 200 mcg PO DAILY 06/07/16 06/21/22 Levothyroxine Sodium [Synthroid] 50 mcg PO DAILY 06/21/22 06/21/22 Previous Rx's Medication Instructions Recorded Metoclopramide [Reglan] 10 mg PO Q6H PRN #20 tab 06/30/22 Ondansetron Odt [Zofran Odt] 4 mg PO Q8HR PRN #10 tab 05/14/23 Allergies Allergy/AdvReac Type Severity Reaction Status Date / Time pregabalin [From Lyrica] AdvReac Nausea & Verified 01/12/23 22:18 Vomiting Review of Systems ROS Statement: Those systems with pertinent positive or pertinent negative responses have been documented in the HPI. ROS Other: All systems not noted in ROS Statement are negative. Past Medical History Past Medical History: Fibromyalgia Additional Past Medical History / Comment(s): carpal tunnel, thyroid cancer, covid History of Any Multi-Drug Resistant Organisms: None Reported Past Surgical History: No Surgical Hx Reported Additional Past Surgical History / Comment(s): thyroidectomy, iodine radiation therapy Past Anesthesia/Blood Transfusion Reactions: No Reported Reaction Past Psychological History: Anxiety Smoking Status: Former smoker Past Alcohol Use History: None Reported Past Drug Use History: None Reported - Past Family History Mother Family Medical History: No Reported History General Exam - General Exam Comments Initial Comments: General: Alert, in no acute distress Head: atraumatic normocephalic. Eyes PERRL, EOMI intact, mucous membranes moist Respiratory: Lungs clear to auscultation bilaterally Cardiovascular: Regular rate and rhythm Abdominal: Soft without guarding or rebound Extremities: Normal inspection with full range of motion and normal capillary refill Neuroogic: alert and oriented 3, CN II-XII intact, able to ambulate with steady gait Skin: warm dry and intact with normal color Limitations: no limitations Course Vital Signs 05/14/23 05/14/23 17:39 20:10 Temperature 98.4 F 98.5 F Pulse Rate 69 80 Respiratory 16 18 Rate Blood Pressure 110/77 O2 Sat by Pulse 97 97 Oximetry - Reevaluation(s) Reevaluation #1: 05/14/23 20:12 Patient reevaluated and updated on results. Patient agreeable with the plan for discharge home Medical Decision Making - Medical Decision Making Was pt. sent in by a medical professional or institution (, PA, ORGANIC GARDENING TEACHER, urgent care, hospital, or residential...) When possible be specific @ -[No] Did you speak to anyone other than the patient for history (EMS, parent, family, police, friend...)? What history was obtained from this source @ -[No] Did you review nursing and triage notes (agree or disagree)? Why? @ -[I reviewed and agree with nursing and triage notes] Were old charts reviewed (outside hosp., previous admission, EMS record, old EKG, old radiological studies, urgent care reports/EKG's, residential records)? Report findings @ -[No old charts were reviewed] Differential Diagnosis (chest pain, altered mental status, abdominal pain women, abdominal pain men, vaginal bleeding, weakness, fever, dyspnea, syncope, hea dache, dizziness, GI bleed, back pain, seizure, CVA, palpatations, mental health, musculoskeletal)? @ -[not applicable] EKG interpreted by me (3pts min.). @ -[As above] X-rays interpreted by me (1pt min.). @ -[None done] CT interpreted by me (1pt min.). @ -[None done] U/S interpreted by me (1pt. min.). @ -[None done] What testing was considered but not performed or refused? (CT, X-rays, U/S, labs)? Why? @ -[None] What meds were considered but not given or refused? Why? @ -[None] Did you discuss the management of the patient with other professionals (professionals i.e. Dr., PA, ORGANIC GARDENING TEACHER, lab, RT, psych nurse, social media community manager, chemical cell changer, teacher, professional security officer, director case management)? Give summary @ -[No] Was smoking cessation discussed for >3mins.? @ -[No] Was critical care preformed (if so, how long)? @ -[No] Were there social determinants of health that impacted care today? How? (Homelessness, low income, unemployed, alcoholism, drug addiction, transportation, low edu. Level, literacy, decrease access to med. care, usp, rehab)? @ -[No] Was there de-escalation of care discussed even if they declined (Discuss DNR or withdrawal of care, Hospice)? DNR status @ -[No] What co-morbidities impacted this encounter? (DM, HTN, Smoking, COPD, CAD, Canc er, CVA, ARF, Chemo, Hep., AIDS, mental health diagnosis, sleep apnea, morbid obesity)? @ -[None] Was patient admitted / discharged? Hospital course, mention meds given and route, prescriptions, significant lab abnormalities, going to OR and other pertinent info. @ Discharged. This is a pleasant 28-year-old [facility] D[facility]. Vital signs are stable. Heart rate regular rate and rhythm, lungs clear to auscultation bilaterally abdomen soft and nontender. Skin no focal neurologic deficits on exam. Patient able to move all extremities freely and playing with a steady gait. Patient had laboratory and imaging studies which were unremarkable. COVID positive. I discussed the results in detail with the patient verbalized understanding all questions were addressed. She is provided meclizine and 1 L IV fluids with symptomatic improvement. Return precautions discussed at length. She is agreeable with the plan for discharge home with recommended close follow-up with PCP in 1-2 days. Patient is discussed with Dr. Hatch, ED attending who agrees with plan of care Undiagnosed new problem with uncertain prognosis? @ -[No] Drug Therapy requiring intensive monitoring for toxicity (Heparin, Nitro, Insulin, Cardizem)? @ -[No] Were any procedures done? @ -[No] Diagnosis/symptom? @ -Dizziness - COVID-19 Acute, or Chronic, or Acute on Chronic? @ -Acute Uncomplicated (without systemic symptoms) or Complicated (systemic symptoms)? @ -Uncomplicated Side effects of treatment? @ -[No] Exacerbation, Progression, or Severe Exacerbation? @ -[No] Poses a threat to life or bodily function? How? (Chest pain, [place], [place], pneumonia, PE, COPD, DKA, ARF, appy, cholecystitis, CVA, Diverticulitis, Homicidal, Suicidal, threat to staff... and all critical care pts) @ Low likelihood - Lab Data Result diagrams: 05/14/23 17:54 05/14/23 17:54 Lab Results 05/14/23 05/14/23 05/14/23 Range/Units 17:54 17:54 17:54 WBC 9.4 (3.8-10.6) k/uL RBC 4.24 (3.80-5.40) m/uL Hgb 13.0 (11.4-16.0) gm/dL Hct 39.2 (34.0-46.0) % MCV 92.6 (80.0-100.0) fL MCH 30.7 (25.0-35.0) pg MCHC 33.1 (31.0-37.0) g/dL RDW 13.8 (11.5-15.5) % Plt Count 296 (150-450) k/uL MPV 7.2 Neutrophils % 69 % Lymphocytes % 22 % Monocytes % 3 % Eosinophils % 4 % Basophils % 0 % Neutrophils # 6.5 (1.3-7.7) k/uL Lymphocytes # 2.1 (1.0-4.8) k/uL Monocytes # 0.3 (0-1.0) k/uL Eosinophils # 0.4 (0-0.7) k/uL Basophils # 0.0 (0-0.2) k/uL Sodium 135 L (137-145) mmol/L Potassium 4.2 (3.5-5.1) mmol/L Chloride 101 (98-107) mmol/L Carbon Dioxide 22 (22-30) mmol/L Anion Gap 12 mmol/L BUN 18 H (7-17) mg/dL Creatinine 0.79 (0.52-1.04) mg/dL Est GFR (CKD-EPI)AfAm >90 (>60 ml/min/1.73 sqM) Est GFR (CKD-EPI)NonAf >90 (>60 ml/min/1.73 sqM) Glucose 85 (74-99) mg/dL Calcium 10.6 H (8.4-10.2) mg/dL Total Bilirubin 0.9 (0.2-1.3) mg/dL AST 39 H (14-36) U/L ALT 41 H (4-34) U/L Alkaline Phosphatase 70 (38-126) U/L Total Protein 8.0 (6.3-8.2) g/dL Albumin 4.7 (3.5-5.0) g/dL HCG, Quant <2.4 mIU/mL Urine Color Light Yellow Urine Appearance Cloudy H (Clear) Urine pH 7.0 (5.0-8.0) Ur Specific [place] 1.020 (1.001-1.035) Urine Protein Negative (Negative) Urine Glucose (UA) Negative (Negative) Urine Ketones Negative (Negative) Urine Blood Negative (Negative) Urine Nitrite Negative (Negative) Urine Bilirubin Negative (Negative) Urine Urobilinogen <2.0 (<2.0) mg/dL Ur Leukocyte Esterase Negative (Negative) Urine WBC 2 (0-5) /hpf Ur Squamous Epith Cells 2 (0-4) /hpf Urine Bacteria Rare H (None) /hpf Urine Mucus Occasional H (None) /hpf Influenza Type A (PCR) (Not Detectd) Influenza Type B (PCR) (Not Detectd) RSV (PCR) (Not Detectd) SARS-CoV-2 (PCR) (Not Detectd) 05/14/23 Range/Units 17:54 WBC (3.8-10.6) k/uL RBC (3.80-5.40) m/uL Hgb (11.4-16.0) gm/dL Hct (34.0-46.0) % MCV (80.0-100.0) fL MCH (25.0-35.0) pg MCHC (31.0-37.0) g/dL RDW (11.5-15.5) % Plt Count (150-450) k/uL MPV Neutrophils % % Lymphocytes % % Monocytes % % Eosinophils % % Basophils % % Neutrophils # (1.3-7.7) k/uL Lymphocytes # (1.0-4.8) k/uL Monocytes # (0-1.0) k/uL Eosinophils # (0-0.7) k/uL Basophils # (0-0.2) k/uL Sodium (137-145) mmol/L Potassium (3.5-5.1) mmol/L Chloride (98-107) mmol/L Carbon Dioxide (22-30) mmol/L Anion Gap mmol/L BUN (7-17) mg/dL Creatinine (0.52-1.04) mg/dL Est GFR (CKD-EPI)AfAm (>60 ml/min/1.73 sqM) Est GFR (CKD-EPI)NonAf (>60 ml/min/1.73 sqM) Glucose (74-99) mg/dL Calcium (8.4-10.2) mg/dL Total Bilirubin (0.2-1.3) mg/dL AST (14-36) U/L ALT (4-34) U/L Alkaline Phosphatase (38-126) U/L Total Protein (6.3-8.2) g/dL Albumin (3.5-5.0) g/dL HCG, Quant mIU/mL Urine Color Urine Appearance (Clear) Urine pH (5.0-8.0) Ur Specific [place] (1.001-1.035) Urine Protein (Negative) Urine Glucose (UA) (Negative) Urine Ketones (Negative) Urine Blood (Negative) Urine Nitrite (Negative) Urine Bilirubin (Negative) Urine Urobilinogen (<2.0) mg/dL Ur Leukocyte Esterase (Negative) Urine WBC (0-5) /hpf Ur Squamous Epith Cells (0-4) /hpf Urine Bacteria (None) /hpf Urine Mucus (None) /hpf Influenza Type A (PCR) Not Detected (Not Detectd) Influenza Type B (PCR) Not Detected (Not Detectd) RSV (PCR) Not Detected (Not Detectd) SARS-CoV-2 (PCR) Detected A (Not Detectd) Disposition Clinical Impression: Dizziness, COVID-19 Disposition: HOME SELF-CARE Condition: Stable Instructions (If sedation given, give patient instructions): Dizziness (ED) Prescriptions: Ondansetron Odt [Zofran Odt] 4 mg PO Q8HR PRN #10 tab PRN Reason: Nausea Is patient prescribed a controlled substance at d/c from ED?: No Referrals: Rosas Trujillo MD [Primary Care Provider] - 1-2 days Time of Disposition: 19:44
[2023-05-14] MEDS ORDERED: ONDANSETRON 4 MG ODT STARTER PACK 2 TAB BTL PO STA (19:56)
[2023-05-14 20:31] VITALS: PULSE 80; RESP 18; TEMP 98.5
== END 2023-05-14 20:10 | disposition home or self-care (01) ==
LOC: EC 17:27
DX: U07.1 COVID-19 (principal); Z87.891 Personal history of nicotine dependence; Z86.59 Personal history of other mental and behavioral disorders; Z88.8 Allergy status to other drugs, medicaments and biological substances
CPT/HCPCS: 36415; 80053; 85025; 81001; 84702; 87636; 99284; 96360; S0119

== ENCOUNTER 2023-09-10 19:26 | Emergency (ER) | payer OTHER ==
[2023-09-10 20:05] VITALS: RESP 18; TEMP 98.2
[2023-09-10 20:09] LABS: Amorphous Sediment,Urine Rare /hpf; Appearance,Urine Cloudy (Clear); Bacteria,Urine Rare /hpf; Bilirubin,Urine Negative (Negative); Blood,Urine Negative (Negative); Color,Urine Colorless; Glucose,Urine (UA) Negative (Negative); Ketones,Urine Negative (Negative); Leukocyte Esterase,Urine Small (Negative); Mucus,Urine Rare /hpf; Nitrite,Urine Negative (Negative); PH, Urine 7.5 (5.0-8.0); Protein,Urine Negative (Negative); RBC,Urine 1 /hpf (0-5); Specific Gravity,Urine 1.015 (1.001-1.035); Squamous Epithelial Cell,Urine 7 /hpf (0-4); Urobilinogen,Urine <2.0 mg/dL (<2.0); WBC,Urine 2 /hpf (0-5)
--- NOTE | 2023-09-10 20:22 | ED ---
General Adult HPI - General Chief complaint: Headache Stated complaint: migraine loss of vision left eye Time Seen by Provider: 09/10/23 19:44 Source: patient Mode of arrival: ambulatory Limitations: no limitations - History of Present Illness Initial comments: 28-year-old female with a past medical history significant for migraines presenting to the ED with a chief complaint of headache. Patient reports over the past 2 to 3 days has had a headache on the right side of her head consistent with her history of migraines. However, states around 7 PM today headache acutely worsened and she started to experience blurred vision in her left eye and started to see a black line across her right eye. No curtain falling visual loss. Reports that she can still see around the black line. No other new symptoms at this time. No other complaints at this time. - Related Data Home Medications Medication Instructions Recorded Confirmed Levothyroxine Sodium [Synthroid] 200 mcg PO DAILY 06/07/16 06/21/22 Levothyroxine Sodium [Synthroid] 50 mcg PO DAILY 06/21/22 06/21/22 Previous Rx's Medication Instructions Recorded Metoclopramide [Reglan] 10 mg PO Q6H PRN #20 tab 06/30/22 Ondansetron Odt [Zofran Odt] 4 mg PO Q8HR PRN #10 tab 05/14/23 Allergies Allergy/AdvReac Type Severity Reaction Status Date / Time pregabalin [From Lyrica] AdvReac Nausea & Verified 09/10/23 19:33 Vomiting Review of Systems ROS Statement: Those systems with pertinent positive or pertinent negative responses have been documented in the HPI. ROS Other: All systems not noted in ROS Statement are negative. Past Medical History Past Medical History: Fibromyalgia Additional Past Medical History / Comment(s): carpal tunnel, thyroid cancer, covid History of Any Multi-Drug Resistant Organisms: None Reported Past Surgical History: No Surgical Hx Reported Additional Past Surgical History / Comment(s): thyroidectomy, iodine radiation therapy Past Anesthesia/Blood Transfusion Reactions: No Reported Reaction Past Psychological History: Anxiety Smoking Status: Former smoker Past Alcohol Use History: None Reported Past Drug Use History: None Reported - Past Family History Mother Family Medical History: No Reported History General Exam Limitations: no limitations Eye exam: Present: PERRL, EOMI, other (Ocular pressure 18 R, 13 L ) Neck exam: Present: normal inspection Respiratory exam: Present: normal lung sounds bilaterally Cardiovascular Exam: Present: regular rate GI/Abdominal exam: Present: soft Neurological exam: Present: alert, oriented X3 Skin exam: Present: warm, dry Course Vital Signs 09/10/23 19:30 Temperature 98.2 F Pulse Rate 81 Respiratory 18 Rate Blood Pressure 116/87 O2 Sat by Pulse 99 Oximetry Medical Decision Making - Medical Decision Making Was pt. sent in by a medical professional or institution (, TRINO, CONCRETE PUMP OPERATOR HELPER, urgent care, hospital, or custodial...) When possible be specific @ -No Did you speak to anyone other than the patient for history (EMS, parent, family, police, friend...)? What history was obtained from this source @ -No Did you review nursing and triage notes (agree or disagree)? Why? @ -I reviewed and agree with nursing and triage notes Were old charts reviewed (outside hosp., previous admission, EMS record, old EKG, old radiological studies, urgent care reports/EKG's, custodial records)? Report findings @ -No old charts were reviewed Differential Diagnosis (chest pain, altered mental status, abdominal pain women, abdominal pain men, vaginal bleeding, weakness, fever, dyspnea, syncope, headache, dizziness, GI bleed, back pain, seizure, CVA, palpatations, mental health, musculoskeletal)? @ -Differential Headache: Migraine, tension, cluster, carbon monoxide, central venous thrombosis, pension karma temporal arteritis, acute closure glaucoma, intercranial hemorrhage, mastoiditis, sinusitis, head injury, this is not meant to be an all-inclusive list. EKG interpreted by me (3pts min.). @ -None X-rays interpreted by me (1pt min.). @ -None done CT interpreted by me (1pt min.). @ -CT brain and CT angio head and neck interpreted me which revealed no evidence of acute finding. U/S interpreted by me (1pt. min.). @ -Bedside ocular ultrasound performed by me which revealed no obvious evidence of retinal detachment. What testing was considered but not performed or refused? (CT, X-rays, U/S, labs)? Why? @ -None What meds were considered but not given or refused? Why? @ -None Did you discuss the management of the patient with other professionals (professionals i.e. TRINO Orourke, CONCRETE PUMP OPERATOR HELPER, lab, RT, psych nurse, manager social responsibility, electrical prospecting operator, teacher, chief customer officer, correctional casework specialist)? Give summary @ -Case discussed with Dr. Chaudhary, who advises outpatient follow-up on Tuesday. Was smoking cessation discussed for >3mins.? @ -No Was critical care preformed (if so, how long)? @ -No Were there social determinants of health that impacted care today? How? (Homelessness, low income, unemployed, alcoholism, drug addiction, transportation, low edu. Level, literacy, decrease access to med. care, long-term, rehab)? @ -No Was there de-escalation of care discussed even if they declined (Discuss DNR or withdrawal of care, Hospice)? DNR status @ -No What co-morbidities impacted this encounter? (DM, HTN, Smoking, COPD, CAD, Cancer, CVA, ARF, Chemo, Hep., AIDS, mental health diagnosis, sleep apnea, morbid obesity)? @ -None Was patient admitted / discharged? Hospital course, mention meds given and route, prescriptions, significant lab abnormalities, going to OR and other pertinent info. @ -Discharge 28-year-old female presenting to the ED with complaints of right-sided headache which does feel somewhat similar to her history of headaches however today while sitting on the couch acutely worsened from a 3 to an 8 severity. At the same time also noticed a black line across her right eye and some blurred vision of her left eye. CT brain and CT angio head and neck revealed no evidence of acute finding. Bedside ocular ultrasound performed by me revealed no obvious evidence of retinal detachment. Upon reevaluation, patient reports improvement of headache and reports that the black line has mostly resolved in her right eye and the blurred vision in her left eye has resolved. Patient will be discharged home with referral to see ophthalmology. Discussed strict return precautions with patient who verbalized agreement. Undiagnosed new problem with uncertain prognosis? @ -No Drug Therapy requiring intensive monitoring for toxicity (Heparin, Nitro, Insulin, Cardizem)? @ -No Were any procedures done? @ -No Diagnosis/symptom? @ -Headache Acute, or Chronic, or Acute on Chronic? @ -Acute Uncomplicated (without systemic symptoms) or Complicated (systemic symptoms)? @ -Complicated Side effects of treatment? @ -No Exacerbation, Progression, or Severe Exacerbation? @ -No Poses a threat to life or bodily function? How? (Chest pain, [place], [place], pneumonia, PE, COPD, DKA, ARF, appy, cholecystitis, CVA, Diverticulitis, Homicidal, Suicidal, threat to staff... and all critical care pts) @ -Unlikely - Lab Data Result diagrams: 09/10/23 20:00 09/10/23 20:00 Lab Results 09/10/23 09/10/23 09/10/23 Range/Units 19:33 19:33 20:00 WBC 7.9 (3.8-10.6) k/uL RBC 3.95 (3.80-5.40) m/uL Hgb 12.4 (11.4-16.0) gm/dL Hct 37.6 (34.0-46.0) % MCV 95.2 (80.0-100.0) fL MCH 31.5 (25.0-35.0) pg MCHC 33.1 (31.0-37.0) g/dL RDW 12.8 (11.5-15.5) % Plt Count 341 (150-450) k/uL MPV 7.2 Neutrophils % 49 % Lymphocytes % 43 % Monocytes % 4 % Eosinophils % 3 % Basophils % 1 % Neutrophils # 3.9 (1.3-7.7) k/uL Lymphocytes # 3.4 (1.0-4.8) k/uL Monocytes # 0.3 (0-1.0) k/uL Eosinophils # 0.2 (0-0.7) k/uL Basophils # 0.1 (0-0.2) k/uL Sodium (137-145) mmol/L Potassium (3.5-5.1) mmol/L Chloride (98-107) mmol/L Carbon Dioxide (22-30) mmol/L Anion Gap mmol/L BUN (7-17) mg/dL Creatinine (0.52-1.04) mg/dL Est GFR (CKD-EPI)AfAm (>60 ml/min/1.73 sqM) Est GFR (CKD-EPI)NonAf (>60 ml/min/1.73 sqM) Glucose (74-99) mg/dL Calcium (8.4-10.2) mg/dL Total Bilirubin (0.2-1.3) mg/dL AST (14-36) U/L ALT (4-34) U/L Alkaline Phosphatase (38-126) U/L Total Protein (6.3-8.2) g/dL Albumin (3.5-5.0) g/dL Urine Color Colorless Urine Appearance Cloudy H (Clear) Urine pH 7.5 (5.0-8.0) Ur Specific [place] 1.015 (1.001-1.035) Urine Protein Negative (Negative) Urine Glucose (UA) Negative (Negative) Urine Ketones Negative (Negative) Urine Blood Negative (Negative) Urine Nitrite Negative (Negative) Urine Bilirubin Negative (Negative) Urine Urobilinogen <2.0 (<2.0) mg/dL Ur Leukocyte Esterase Small H (Negative) Urine RBC 1 (0-5) /hpf Urine WBC 2 (0-5) /hpf Ur Squamous Epith Cells 7 H (0-4) /hpf Amorphous Sediment Rare H (None) /hpf Urine Bacteria Rare H (None) /hpf Urine Mucus Rare H (None) /hpf Urine HCG, Qual Not Detected (Not Detectd) 09/10/23 Range/Units 20:00 WBC (3.8-10.6) k/uL RBC (3.80-5.40) m/uL Hgb (11.4-16.0) gm/dL Hct (34.0-46.0) % MCV (80.0-100.0) fL MCH (25.0-35.0) pg MCHC (31.0-37.0) g/dL RDW (11.5-15.5) % Plt Count (150-450) k/uL MPV Neutrophils % % Lymphocytes % % Monocytes % % Eosinophils % % Basophils % % Neutrophils # (1.3-7.7) k/uL Lymphocytes # (1.0-4.8) k/uL Monocytes # (0-1.0) k/uL Eosinophils # (0-0.7) k/uL Basophils # (0-0.2) k/uL Sodium 136 L (137-145) mmol/L Potassium 3.8 (3.5-5.1) mmol/L Chloride 108 H (98-107) mmol/L Carbon Dioxide 25 (22-30) mmol/L Anion Gap 3 mmol/L BUN 13 (7-17) mg/dL Creatinine 0.82 (0.52-1.04) mg/dL Est GFR (CKD-EPI)AfAm >90 (>60 ml/min/1.73 sqM) Est GFR (CKD-EPI)NonAf >90 (>60 ml/min/1.73 sqM) Glucose 93 (74-99) mg/dL Calcium 9.3 (8.4-10.2) mg/dL Total Bilirubin 0.6 (0.2-1.3) mg/dL AST 32 (14-36) U/L ALT 33 (4-34) U/L Alkaline Phosphatase 49 (38-126) U/L Total Protein 7.0 (6.3-8.2) g/dL Albumin 4.0 (3.5-5.0) g/dL Urine Color Urine Appearance (Clear) Urine pH (5.0-8.0) Ur Specific [place] (1.001-1.035) Urine Protein (Negative) Urine Glucose (UA) (Negative) Urine Ketones (Negative) Urine Blood (Negative) Urine Nitrite (Negative) Urine Bilirubin (Negative) Urine Urobilinogen (<2.0) mg/dL Ur Leukocyte Esterase (Negative) Urine RBC (0-5) /hpf Urine WBC (0-5) /hpf Ur Squamous Epith Cells (0-4) /hpf Amorphous Sediment (None) /hpf Urine Bacteria (None) /hpf Urine Mucus (None) /hpf Urine HCG, Qual (Not Detectd) Disposition Clinical Impression: Headache Disposition: HOME SELF-CARE Condition: Good Additional Instructions: Please return to the Emergency Department if symptoms worsen or any other concerns. Please follow-up with ophthalmology. Is patient prescribed a controlled substance at d/c from ED?: No Referrals: Rosas Trujillo MD [Primary Care Provider] - 1-2 days Liam Chaudhary MD [STAFF PHYSICIAN] - 1-2 days Time of Disposition: 22:59
[2023-09-10 20:27] LABS: Basophils # (A) 0.1 k/uL (0-0.2); Basophils % (A) 1 %; Eosinophils # (A) 0.2 k/uL (0-0.7); Eosinophils % (A) 3 %; HCT 37.6 % (34.0-46.0); HGB 12.4 gm/dL (11.4-16.0); Lymphocytes # (A) 3.4 k/uL (1.0-4.8); Lymphocytes % (A) 43 %; MCH 31.5 pg (25.0-35.0); MCHC 33.1 g/dL (31.0-37.0); MCV 95.2 fL (80.0-100.0); Mean Platelet Volume 7.2; Monocytes # (A) 0.3 k/uL (0-1.0); Monocytes % (A) 4 %; Neutrophils # (A) 3.9 k/uL (1.3-7.7); Neutrophils % (A) 49 %; Platelet Count 341 k/uL (150-450); RBC 3.95 m/uL (3.80-5.40); RDW 12.8 % (11.5-15.5); WBC 7.9 k/uL (3.8-10.6)
[2023-09-10] MEDS: KETOROLAC 15 MG/ML 1 ML VIAL IVP STA (20:38)
[2023-09-10] MEDS: ACETAMINOPHEN TAB 500 MG TAB PO STA (20:41)
[2023-09-10 21:09] LABS: ALT 33 U/L (4-34); AST 32 U/L (14-36); African American GFR (CKD) >90 (>60 ml/min/1.73 sqM); Alkaline Phosphatase 49 U/L (38-126); Anion Gap 3 mmol/L; Blood Urea Nitrogen 13 mg/dL (7-17); Calcium 9.3 mg/dL (8.4-10.2); Carbon Dioxide 25 mmol/L (22-30); Chloride 108 mmol/L (98-107); Glucose 93 mg/dL (74-99); Non-African American GFR(CKD) >90 (>60 ml/min/1.73 sqM); Potassium 3.8 mmol/L (3.5-5.1); Sodium 136 mmol/L (137-145); Total Bilirubin 0.6 mg/dL (0.2-1.3)
--- NOTE | 2023-09-10 21:40 | CT ---
EXAMINATION TYPE: CT brain wo con CT DLP: Combined DLP of 1490.2 mGycm, Automated exposure control for dose reduction was used. DATE OF EXAM: 09/10/2023 9:33 PM COMPARISON: None. CLINICAL INDICATION:Female, 28 years old with history of right sided gimenez right vision loss, Rt sided H A and vision loss. TECHNIQUE: Brain: Axial CT images of the brain were obtained with coronal and sagittal reformats created and rev iewed. Contrast used: None. Oral contrast used: None. FINDINGS: Brain: Extra-axial spaces: No abnormal extra-axial fluid collections. Ventricular system: Within normal limits Cerebral parenchyma: No acute intraparenchymal hemorrhage or mass effect. The chong-white junction is well differentiated. Cerebellum: Unremarkable. Mass effect: No evidence of midline shift. Intracranial vasculature: unremarkable Soft tissues: Normal. Calvarium/osseous structures: No depressed skull fracture. Paranasal sinuses and mastoid air cells: Mild scattered paranasal sinus disease. Visualized orbits: Orbital contents are intact. IMPRESSION: No acute intracranial process.
--- NOTE | 2023-09-10 21:43 | CT ---
EXAMINATION TYPE: CT angio head neck CT DLP: Combined DLP of 1490.2 mGycm, Automated exposure control for dose reduction was used. DATE OF EXAM: 09/10/2023 9:33 PM COMPARISON: CT head same day. CLINICAL INDICATION:Female, 28 years old with history of right sided quesada, r visual loss; PHH, Rt sided QUESADA and vision loss. TECHNIQUE: Axially acquired helical CT angiogram of the head and neck was obtained with contrast. Axi al images are supplemented with 3D reconstructions and MIP images which were post-processed at an in dependent workstation. NASCET criteria used. Contrast used:65cc mL of Isovue 370 with IV Contrast, Oral contrast used: None. FINDINGS: CTA HEAD: No evidence of acute intracranial hemorrhage, mass effect, or midline shift. The ventricles, sulci, a nd cisterns are unremarkable. The visualized portions of the internal carotid arteries, middle cerebral arteries, anterior cerebral arteries, and posterior cerebral arteries are patent. Hypoplastic left A1 segment. The ophthalmic ar teries are opacified near the origin. origin of the left posterior cerebral artery. The basilar and vertebral arteries are patent. CTA NECK: Right Carotid System: The common carotid artery and external carotid artery are patent. The carotid bifurcation demonstrate s no evidence of hemodynamically significant stenosis. The remaining portions of the internal carotid artery demonstrate normal size without significant narrowing. Left Carotid System: The common carotid artery and external carotid artery are patent. The carotid bifurcation demonstrate s no evidence of hemodynamically significant stenosis. The remaining portions of the internal carotid artery demonstrate normal size without significant narrowing. Vertebral arteries are patent without evidence hemodynamically significant stenosis. There is a three-vessel aortic arch. The origins of the great vessels are patent. No evidence of hemo dynamically significant stenosis. Upper thorax: IMPRESSION: 1. No evidence of dissection of the cervical internal carotid arteries or vertebral arteries or any e vidence of significant stenosis at the carotid bifurcations. 2. No evidence of intracranial high-grade stenosis or intracranial aneurysm.
[2023-09-10 23:20] VITALS: BP 108/73; PULSE 73
== END 2023-09-10 23:25 | disposition home or self-care (01) ==
LOC: EC 19:26
DX: R51.9 Headache, unspecified (principal); Z88.8 Allergy status to other drugs, medicaments and biological substances; Z87.891 Personal history of nicotine dependence; Z86.16 Personal history of COVID-19
CPT/HCPCS: 36415; 80053; 85025; 81001; 81025; 70496; 70450; 70498; 99284; 96374; J1885; Q9967

== ENCOUNTER 2023-12-23 09:29 | Emergency (ER) | payer OTHER ==
[2023-12-23 09:41] VITALS: TEMP 98.6
--- NOTE | 2023-12-23 10:02 | ED ---
Abdominal Pain HPI - General Chief Complaint: Abdominal Pain Stated Complaint: 7 wks preg/severe pain in belly Time Seen by Provider: 12/23/23 09:43 Source: patient, RN notes reviewed Mode of arrival: ambulatory Limitations: no limitations - History of Present Illness Initial Comments: This is a 28-year-old female who presents to the emergency department for pelvic pain in . Patient is approximately 7 weeks and . States that she developed pelvic pain about 2 days ago. Pain is primarily left-sided. She does have some associated nausea. Denies any bleeding. She has her first appointment with Dr. Hurtado, [facility], next week. MD Complaint: abdominal pain - Related Data Home Medications Medication Instructions Recorded Confirmed Levothyroxine Sodium [Synthroid] 200 mcg PO DAILY 06/07/16 06/21/22 Levothyroxine Sodium [Synthroid] 50 mcg PO DAILY 06/21/22 06/21/22 Previous Rx's Medication Instructions Recorded Metoclopramide [Reglan] 10 mg PO Q6H PRN #20 tab 06/30/22 Ondansetron Odt [Zofran Odt] 4 mg PO Q8HR PRN #10 tab 05/14/23 Ondansetron Odt [Zofran Odt] 4 mg PO Q8HR PRN #30 tab 12/23/23 Allergies Allergy/AdvReac Type Severity Reaction Status Date / Time pregabalin [From Lyrica] AdvReac Nausea & Verified 12/23/23 09:41 Vomiting Review of Systems ROS Statement: Those systems with pertinent positive or pertinent negative responses have been documented in the HPI. ROS Other: All systems not noted in ROS Statement are negative. Past Medical History Past Medical History: Fibromyalgia Additional Past Medical History / Comment(s): carpal tunnel, thyroid cancer, covid History of Any Multi-Drug Resistant Organisms: None Reported Past Surgical History: No Surgical Hx Reported Additional Past Surgical History / Comment(s): thyroidectomy, iodine radiation therapy Past Anesthesia/Blood Transfusion Reactions: No Reported Reaction Past Psychological History: Anxiety Smoking Status: Former smoker Past Alcohol Use History: None Reported Past Drug Use History: None Reported - Past Family History Mother Family Medical History: No Reported History General Exam Limitations: no limitations General appearance: alert, in no apparent distress Head exam: Present: atraumatic, normocephalic, normal inspection Respiratory exam: Present: normal lung sounds bilaterally. Absent: respiratory distress, wheezes, rales, rhonchi, stridor Cardiovascular Exam: Present: regular rate, normal rhythm, normal heart sounds. Absent: systolic murmur, diastolic murmur, rubs, gallop, clicks Neurological exam: Present: alert, oriented X3, CN II-XII intact Psychiatric exam: Present: normal affect, normal mood Skin exam: Present: warm, dry, intact, normal color. Absent: rash Course Vital Signs 12/23/23 12/23/23 09:38 12:44 Temperature 98.6 F Pulse Rate 80 73 Respiratory 18 17 Rate Blood Pressure 120/70 126/72 O2 Sat by Pulse 99 98 Oximetry Medical Decision Making - Medical Decision Making This is a 28 year old female who presents to the emergency department for pelvic/abdominal pain in . Was pt. sent in by a medical professional or institution? @ -No Did you speak to anyone other than the patient for history? @ -No Did you review nursing and triage notes? @ -Yes, and I agree, it is accurate with regards to the patient's symptoms. Were old charts reviewed? @ -No Differential Diagnosis? @ -Differential Abdominal Pain Women: Appendicitis, Cholecystitis, diverticulosis, ischemic bowel, pancreatitis, hepatitis, UTI, gastroenteritis, AAA, incarcerated hernia, bowel obstruction, constipation, inflammatory bowel, hepatitis, peptic ulcer disease, splenic infarction, perforated viscus, vulvitis, ovarian torsion, PID, kidney stone, placenta abruption, this is not meant to be an all-inclusive list EKG interpreted by me (3pts min.)? @ -Not obtained X-rays interpreted by me (1pt min.)? @ -Not obtained CT interpreted by me (1pt min.)? @ -Not obtained U/S interpreted by me (1pt. min.)? @ -Obstetrics ultrasound obtained. My interpretation identifies a single live intrauterine . What testing was considered but not performed? (CT, X-rays, U/S, labs)? Why? @ -None What meds were considered but not given? Why? @ -None Did you discuss the management of the patient with other professionals? @ -No Did you reconcile home meds? @ -No Was smoking cessation discussed for >3mins.? @ -No Was critical care preformed (if so, how long)? @ -No Were there social determinants of health that impacted care today? How? (Homelessness, low income, unemployed, alcoholism, drug addiction, transportation, low edu. Level, literacy, decrease access to med. care, care home, rehab)? @ -No Was there de-escalation of care discussed even if they declined? (Discuss DNR or withdrawal of care, Hospice)? @ -No What co-morbidities impacted this encounter? (DM, HTN, Smoking, COPD, CAD, Cancer, CVA, Hep., AIDS, mental health diagnosis, sleep apnea, morbid obesity)? @ - Was patient admitted / discharged? @ -Discharged. Lab work unremarkable. Urinalysis negative for signs of infection. Obstetrics ultrasound obtained demonstrating a single live intr auterine of 6 weeks 1 day with a heartbeat of 115 bpm. There is a subchorionic hemorrhage present. There is also a large right ovarian cyst measuring 6.8 cm. Both findings reviewed with the patient. Nothing irregular was identified on the left side to account for her pain. She was given Tylenol, Zofran, and IV fluids in the emergency department. She requested to continue with Zofran for management of her ongoing nausea and vomiting. States that she took this in her prior and it was effective. Prescription subsequently provided. She will otherwise follow-up with [facility] as scheduled. Case discussed with ED attending, Dr. Kramer. Return precautions reviewed in depth, the patient is instructed to return to the emergency department with any new, worsening, or concerning symptoms. Patient verbalized understanding. Undiagnosed new problem with uncertain prognosis? @ -None Drug Therapy requiring intensive monitoring for toxicity (Heparin, Nitro, Insulin, Cardizem)? @ -None Were any procedures done? @ -None Diagnosis/symptom? @ -Abdominal pain in Acute, or Chronic, or Acute on Chronic? @ -Acute Uncomplicated (without systemic symptoms) or Complicated (systemic symptoms)? @ -Uncomplicated Side effects of treatment? @ -None Exacerbation, Progression, or Severe Exacerbation] @ -Not applicable Poses a threat to life or bodily function? @ -No - Lab Data Result diagrams: 12/23/23 09:47 12/23/23 09:47 Lab Results 12/23/23 12/23/23 12/23/23 Range/Units 09:47 09:47 09:47 WBC 5.8 (3.8-10.6) k/uL RBC 3.67 L (3.80-5.40) m/uL Hgb 11.7 (11.4-16.0) gm/dL Hct 35.6 (34.0-46.0) % MCV 97.1 (80.0-100.0) fL MCH 32.0 (25.0-35.0) pg MCHC 33.0 (31.0-37.0) g/dL RDW 13.1 (11.5-15.5) % Plt Count 297 (150-450) k/uL MPV 7.0 Neutrophils % 57 % Lymphocytes % 34 % Monocytes % 5 % Eosinophils % 1 % Basophils % 1 % Neutrophils # 3.3 (1.3-7.7) k/uL Lymphocytes # 2.0 (1.0-4.8) k/uL Monocytes # 0.3 (0-1.0) k/uL Eosinophils # 0.1 (0-0.7) k/uL Basophils # 0.0 (0-0.2) k/uL Sodium 135 L (137-145) mmol/L Potassium 4.1 (3.5-5.1) mmol/L Chloride 109 H (98-107) mmol/L Carbon Dioxide 20 L (22-30) mmol/L Anion Gap 6 mmol/L BUN 9 (7-17) mg/dL Creatinine 0.52 (0.52-1.04) mg/dL Est GFR (CKD-EPI)AfAm >90 (>60 ml/min/1.73 sqM) Est GFR (CKD-EPI)NonAf >90 (>60 ml/min/1.73 sqM) Glucose 84 (74-99) mg/dL Calcium 9.3 (8.4-10.2) mg/dL Total Bilirubin 0.8 (0.2-1.3) mg/dL AST 25 (14-36) U/L ALT 30 (4-34) U/L Alkaline Phosphatase 45 (38-126) U/L Total Protein 6.8 (6.3-8.2) g/dL Albumin 4.1 (3.5-5.0) g/dL HCG, Quant 00343.3 mIU/mL Urine Color Colorless Urine Appearance Cloudy H (Clear) Urine pH 8.0 (5.0-8.0) Ur Specific [place] 1.017 (1.001-1.035) Urine Protein Negative (Negative) Urine Glucose (UA) Negative (Negative) Urine Ketones Negative (Negative) Urine Blood Negative (Negative) Urine Nitrite Negative (Negative) Urine Bilirubin Negative (Negative) Urine Urobilinogen <2.0 (<2.0) mg/dL Ur Leukocyte Esterase Moderate H (Negative) Urine RBC 1 (0-5) /hpf Urine WBC 4 (0-5) /hpf Ur Squamous Epith Cells 14 H (0-4) /hpf Urine Mucus Rare H (None) /hpf Blood Type Blood Type Recheck Bld Type Recheck Status 12/23/23 Range/Units 09:47 WBC (3.8-10.6) k/uL RBC (3.80-5.40) m/uL Hgb (11.4-16.0) gm/dL Hct (34.0-46.0) % MCV (80.0-100.0) fL MCH (25.0-35.0) pg MCHC (31.0-37.0) g/dL RDW (11.5-15.5) % Plt Count (150-450) k/uL MPV Neutrophils % % Lymphocytes % % Monocytes % % Eosinophils % % Basophils % % Neutrophils # (1.3-7.7) k/uL Lymphocytes # (1.0-4.8) k/uL Monocytes # (0-1.0) k/uL Eosinophils # (0-0.7) k/uL Basophils # (0-0.2) k/uL Sodium (137-145) mmol/L Potassium (3.5-5.1) mmol/L Chloride (98-107) mmol/L Carbon Dioxide (22-30) mmol/L Anion Gap mmol/L BUN (7-17) mg/dL Creatinine (0.52-1.04) mg/dL Est GFR (CKD-EPI)AfAm (>60 ml/min/1.73 sqM) Est GFR (CKD-EPI)NonAf (>60 ml/min/1.73 sqM) Glucose (74-99) mg/dL Calcium (8.4-10.2) mg/dL Total Bilirubin (0.2-1.3) mg/dL AST (14-36) U/L ALT (4-34) U/L Alkaline Phosphatase (38-126) U/L Total Protein (6.3-8.2) g/dL Albumin (3.5-5.0) g/dL HCG, Quant mIU/mL Urine Color Urine Appearance (Clear) Urine pH (5.0-8.0) Ur Specific [place] (1.001-1.035) Urine Protein (Negative) Urine Glucose (UA) (Negative) Urine Ketones (Negative) Urine Blood (Negative) Urine Nitrite (Negative) Urine Bilirubin (Negative) Urine Urobilinogen (<2.0) mg/dL Ur Leukocyte Esterase (Negative) Urine RBC (0-5) /hpf Urine WBC (0-5) /hpf Ur Squamous Epith Cells (0-4) /hpf Urine Mucus (None) /hpf Blood Type A Positive Blood Type Recheck A Pos Bld Type Recheck Status [facility] - Radiology Data Radiology results: report reviewed, image reviewed Disposition Clinical Impression: Abdominal pain in Disposition: HOME SELF-CARE Instructions (If sedation given, give patient instructions): Nausea and Vomiting in (ED), Abdominal Pain in (ED) Additional Instructions: Return to the emergency department with any new, worsening, or concerning symptoms. Take the Zofran up to every 8 hours as needed for nausea and vomiting. Take Tylenol as needed for pain relief. Follow-up with Dr. Hurtado as scheduled. Prescriptions: Ondansetron Odt [Zofran Odt] 4 mg PO Q8HR PRN #30 tab PRN Reason: Nausea And Vomiting Is patient prescribed a controlled substance at d/c from ED?: No Referrals: Rosas Trujillo MD [Primary Care Provider] - 1-2 days Time of Disposition: 12:03
[2023-12-23] MEDS: ACETAMINOPHEN IV (For NPO) 1,000 MG in EMPTY BAG 1 BAG IVPB STA (10:11)
[2023-12-23] MEDS: ONDANSETRON 4 MG/2 ML VIAL IVP STA (10:11)
[2023-12-23] MEDS: SODIUM CHLORIDE 0.9% 1,000 ML IV STA (10:11)
[2023-12-23 10:36] LABS: Basophils % (A) 1 %; Eosinophils # (A) 0.1 k/uL (0-0.7); Eosinophils % (A) 1 %; HCT 35.6 % (34.0-46.0); HGB 11.7 gm/dL (11.4-16.0); Lymphocytes % (A) 34 %; MCV 97.1 fL (80.0-100.0); Monocytes # (A) 0.3 k/uL (0-1.0); Monocytes % (A) 5 %; Neutrophils # (A) 3.3 k/uL (1.3-7.7); Neutrophils % (A) 57 %; Platelet Count 297 k/uL (150-450); RBC 3.67 m/uL (3.80-5.40); RDW 13.1 % (11.5-15.5); WBC 5.8 k/uL (3.8-10.6)
[2023-12-23 10:42] LABS: Appearance,Urine Cloudy (Clear); Bilirubin,Urine Negative (Negative); Blood,Urine Negative (Negative); Color,Urine Colorless; Glucose,Urine (UA) Negative (Negative); Ketones,Urine Negative (Negative); Leukocyte Esterase,Urine Moderate (Negative); Mucus,Urine Rare /hpf; Nitrite,Urine Negative (Negative); Protein,Urine Negative (Negative); RBC,Urine 1 /hpf (0-5); Specific Gravity,Urine 1.017 (1.001-1.035); Squamous Epithelial Cell,Urine 14 /hpf (0-4); Urobilinogen,Urine <2.0 mg/dL (<2.0); WBC,Urine 4 /hpf (0-5)
[2023-12-23 11:04] LABS: ALT 30 U/L (4-34); AST 25 U/L (14-36); African American GFR (CKD) >90 (>60 ml/min/1.73 sqM); Albumin 4.1 g/dL (3.5-5.0); Alkaline Phosphatase 45 U/L (38-126); Anion Gap 6 mmol/L; Blood Urea Nitrogen 9 mg/dL (7-17); Calcium 9.3 mg/dL (8.4-10.2); Carbon Dioxide 20 mmol/L (22-30); Chloride 109 mmol/L (98-107); Glucose 84 mg/dL (74-99); Non-African American GFR(CKD) >90 (>60 ml/min/1.73 sqM); Sodium 135 mmol/L (137-145); Total Bilirubin 0.8 mg/dL (0.2-1.3); Total Protein 6.8 g/dL (6.3-8.2)
--- NOTE | 2023-12-23 11:04 | US ---
EXAMINATION TYPE: Transabdominal DATE OF EXAM: 12/23/2023 10:42 AM COMPARISON: NONE CLINICAL INDICATION: Female, 28 years old with history of pelvic pain in ; Pelvic pain EXAM PERFORMED: Transabdominal (TA) EXAM MEASUREMENTS: GESTATIONAL AGE / DATING Physician Established: Not yet established Dates by LMP: (7 weeks/6 days) EDC: 08/04/2024 Dates by First Scan: No previous this is first scan Dates by Current Scan for: ( 6 weeks/1 days) EDC: 08/16/2024 MATERNAL ANATOMY Uterus: 12.4 x 4.2 x 6.0cm Right Ovary: 7.8 x 6.2 x 5.8cm, cyst measuring 6.8 x 4.8 x 5.4cm Left Ovary: 3.8 x 2.4 x 2.5cm Post CDS / Adnexa: wnl Presence of free fluid: no Presence of corpus luteal cyst: not seen Presence of subchorionic bleed: 1.6 x 1.5 x 2.1cm inferior to gestational sac GESTATION / SURVEY CRL: 4.1cm (6 weeks/1 days) Yolk Sac (normal less than 6mm): 5.2mm Heart Rate: 115 bpm Rhythm: Normal IUP: Viable IUP Date of LMP: 10/29/2023 Beta HcG (if available): Not available at time of exam IMPRESSION: 1. Viable intrauterine of 6 weeks 1 day with a heartbeat of 115 bpm. 2. There is a 2.1 cm subchorionic hemorrhage. Correlate clinically. 3. There is a large right ovarian cyst measuring 6.8 cm.
[2023-12-23 11:24] LABS: Potassium 4.1 mmol/L (3.5-5.1)
[2023-12-23 11:59] LABS: HCG,Quantitative Serum 56884.3 mIU/mL
[2023-12-23 12:46] VITALS: BP 126/72; PULSE 73; RESP 17
== END 2023-12-23 12:52 | disposition home or self-care (01) ==
LOC: EC 09:29
DX: O34.81 Maternal care for other abnormalities of pelvic organs, first trimester (principal); N83.201 Unspecified ovarian cyst, right side; Z3A.01 Less than 8 weeks gestation of pregnancy; Z87.891 Personal history of nicotine dependence; Z86.16 Personal history of COVID-19; Z88.8 Allergy status to other drugs, medicaments and biological substances
CPT/HCPCS: 36415; 86900; 86901; 80053; 85025; 81001; 84702; 76801; 99284; 96374; 96375; 96361; J2405; J0131

== ENCOUNTER 2024-01-20 05:25 | Emergency (ER) | payer OTHER ==
[2024-01-20] MEDS ORDERED: ONDANSETRON 4 MG/2 ML VIAL ONE (06:40)
[2024-01-20] MEDS ORDERED: ACETAMINOPHEN TAB 500 MG TAB ONE (06:41)
[2024-01-20] MEDS ORDERED: SODIUM CHLORIDE 0.9% 1,000 ML BAG ONE (06:55)
--- NOTE | 2024-02-15 15:48 | US ---
Patient: Sharon Mattson Ordering Physician: Unknown, Unknown ID: [email or web address]. Phone, Pager: Phone : N/A Pager: N/A : 1995 Age/Gender: 28Y, F Primary Location: N/A Procedure: US OB <= 14 wk Study Date: 01/20/2024 7:47:00 AM Order #: EXAMINATION TYPE: Transabdominal DATE OF EXAM: 01/20/2024 8:43 AM COMPARISON: NONE CLINICAL INDICATION: Pain, EXAM PERFORMED: US OB<14weeks - Abdomen pain Uterus - wnl Right ovary - 7 x 5 x 5cm cyst Left ovary - wnl Bilateral adnexa - wnl Cul de sac - wnl Viable single IUP 10 weeks 5 days Due date - 08/12/24 FHR - 172bpm CRL - 3.9cm Yolk sac not seen IMPRESSION: 1. Single viable intrauterine . Right ovarian cyst.
--- NOTE | 2024-02-15 15:48 | US ---
Patient: Sharon Mattson Ordering Physician: Unknown, Unknown ID: [id number] Phone, Pager: Phone: N/A Pager: N/A : 1995 Age/Gender: 28Y, F Primary Location: N/A Procedure: US kidneys/renal a nd bladder Study Date: 01/20/2024 7:36:00 AM EXAMINATION TYPE: US kidneys/renal and bladder DATE OF EXAM: 01/20/2024 COMPARISON: NONE CLINICAL INDICATION: Unknown, old with history of ; US Renal - Abdomen pain Right Kidney - wnl Left Kidney - wnl Bladder - wnl, both jets seen There is no evidence for hydronephrosis at this point in time. No nephrolithiasis is seen. No beverly s are identified. The urinary bladder is anechoic. Bilateral ureteral jets are seen. IMPRESSION: No significant abnormality appreciated.
== END 2024-01-20 11:20 | disposition home or self-care (01) ==
LOC: EC 05:25
CPT/HCPCS: 76770; 76801; 96374; 99284

== ENCOUNTER 2024-02-19 16:12 | Emergency (ER) | payer OTHER ==
[2024-02-19 16:18] VITALS: RESP 16; TEMP 97.8
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
[2024-02-19 17:07] LABS: Basophils % (A) 0 %; Eosinophils # (A) 0.2 k/uL (0-0.7); Eosinophils % (A) 2 %; HCT 36.2 % (34.0-46.0); HGB 12.2 gm/dL (11.4-16.0); Lymphocytes # (A) 2.2 k/uL (1.0-4.8); Lymphocytes % (A) 27 %; MCH 31.9 pg (25.0-35.0); MCHC 33.7 g/dL (31.0-37.0); MCV 94.9 fL (80.0-100.0); Mean Platelet Volume 7.5; Monocytes # (A) 0.3 k/uL (0-1.0); Monocytes % (A) 4 %; Neutrophils # (A) 5.2 k/uL (1.3-7.7); Neutrophils % (A) 65 %; Platelet Count 298 k/uL (150-450); RBC 3.82 m/uL (3.80-5.40); RDW 12.9 % (11.5-15.5)
[2024-02-19 17:12] LABS: Amorphous Sediment,Urine Moderate /hpf; Appearance,Urine Turbid (Clear); Bilirubin,Urine Negative (Negative); Blood,Urine Negative (Negative); Color,Urine Light Yellow; Glucose,Urine (UA) Negative (Negative); Ketones,Urine Trace (Negative); Leukocyte Esterase,Urine Negative (Negative); Mucus,Urine Few /hpf; Nitrite,Urine Negative (Negative); Protein,Urine Negative (Negative); RBC,Urine 1 /hpf (0-5); Specific Gravity,Urine 1.018 (1.001-1.035); Squamous Epithelial Cell,Urine 4 /hpf (0-4); Urobilinogen,Urine <2.0 mg/dL (<2.0)
[2024-02-19 17:20] LABS: ALT 17 U/L (4-34); AST 23 U/L (14-36); African American GFR (CKD) >90 (>60 ml/min/1.73 sqM); Albumin 3.8 g/dL (3.5-5.0); Alkaline Phosphatase 40 U/L (38-126); Anion Gap 3 mmol/L; Blood Urea Nitrogen 9 mg/dL (7-17); Calcium 9.5 mg/dL (8.4-10.2); Carbon Dioxide 16 mmol/L (22-30); Chloride 108 mmol/L (98-107); Glucose 121 mg/dL (74-99); Lipase 61 U/L (23-300); Non-African American GFR(CKD) >90 (>60 ml/min/1.73 sqM); Potassium 3.6 mmol/L (3.5-5.1); Sodium 127 mmol/L (137-145); Total Bilirubin 0.7 mg/dL (0.2-1.3); Total Protein 6.5 g/dL (6.3-8.2)
[2024-02-19 17:23] LABS: INR 0.8 (<1.2); Prothrombin Time 9.5 sec (10.0-12.5)
--- NOTE | 2024-02-19 17:56 | US ---
EXAMINATION TYPE: US OB >= 14 wk fetus DATE OF EXAM: 02/19/2024 COMPARISON: None CLINICAL INDICATION: Female, 29 years old with history of pelvic pain; 2 year odl punch mom in stomac h, pressure and pain in vaginal canal, no bleeding, TECHNIQUE: OBTA GESTATIONAL AGE / DATING Physician Established: (15 weeks/1 days) EDC: 08/11/2024 Dates by LMP: (15 weeks/1 days) EDC: 08/11/2024 Dates by First Scan: (15 weeks/2 days) EDC: 08/12/2024 Dates by Current Scan: (15 weeks/4 days) EDC: 08/08/2024 SURVEY IUP: Single PLACENTA: Anterior PREVIA: Complete SHALONDA: 12.3 cm Normal CERVICAL LENGTH (transabdominal: norm > 3.0cm): 3.1 cm BIOMETRY PRESENTATION: Variable LIE: Transverse with head maternal L BPD: 2.9 cm 15 weeks / 4 days HC: 11.1 cm 15 weeks / 3 days AC: 9.1 cm 15 weeks / 2 days FL: 1.9 cm 16 weeks / 0 days ESTIMATED WEIGHT IN GRAMS: 128 grams ESTIMATED WEIGHT IN LBS/OZ: 0 lbs. 5 oz. WEIGHT PERCENTAGE BASED ON ESTABLISHED DATES: 68% HC/AC: 1.2 Normal FL/AC: 22 Normal HEART RATE: 160 bpm RHYTHM: Normal patient has known ovarian cyst on the right for 4 years, simple cyst = 5.7 x 6.6 x 5.5cm, ovary sit s more midline within pelvis IMPRESSION: 1. Redemonstrated known right ovarian cyst measuring up to 5.7 cm. 2. Viable intrauterine with estimated age of 15 weeks 4 days. [facility], , 02/19/2024 5:54 PM
[2024-02-19] MEDS: SODIUM CHLORIDE 0.9% 1,000 ML IV STA (18:06)
[2024-02-19 18:58] VITALS: BP 106/72; PULSE 85
== END 2024-02-19 18:59 | disposition home or self-care (01) ==
LOC: EC 16:12
CPT/HCPCS: 36415; 76805; 80053; 81001; 81025; 83690; 85025; 85610; 85730; 86850; 86900; 86901; 96360; 99284

== ENCOUNTER 2024-06-09 10:10 | Outpatient (CLI) | payer OTHER ==
[2024-06-09 10:47] LABS: Appearance,Urine Clear (Clear); Bilirubin,Urine Negative (Negative); Blood,Urine Negative (Negative); Color,Urine Colorless; Glucose,Urine (UA) Negative (Negative); Ketones,Urine Negative (Negative); Leukocyte Esterase,Urine Negative (Negative); Nitrite,Urine Negative (Negative); PH, Urine 7.5 (5.0-8.0); Protein,Urine Negative (Negative); Specific Gravity,Urine 1.006 (1.001-1.035); Urobilinogen,Urine <2.0 mg/dL (<2.0)
[2024-06-09 12:02] VITALS: BP 106/66; PULSE 85; RESP 16; TEMP 97
--- NOTE | 2024-06-29 15:54 | P.MSEPDOC ---
Presenting Problems - Arrival Data Date of Arrival on Unit: 06/09/24 Time of Arrival on Unit: 10:10 Mode of Transport: Ambulatory - Complaint OB-Reason for Admission/Chief Complaint: Decreased Movement Comment: and vaginal pressure Medical History - Information : 2 Para: 1 Term: 1 : 0 Abortions: Spontaneous or Elective: 0 Number of Living Children: 1 - Gestational Age Gestational Age by DIPTI (wks/days): 31 Weeks and 0 Days - History Complications: GDM Review of Systems - Review of Systems Constitutional: No problems Breast: No problems ENT: No problems Cardiovascular: No problems Respiratory: No problems Gastrointestinal: No problems Genitourinary: No problems Musculoskeletal: No problems Neurological: No problems Skin: No problems Vital Signs - Temperature Temperature: 97.0 F Temperature Source: Temporal Artery Scan - Pulse Right Sitting Pulse Rate: 85 Pulse Assessment Method: Automatic Cuff - Respirations Respiratory Rate: 16 Oxygen Delivery Method: Room Air O2 Sat by Pulse Oximetry: 95 - Blood Pressure Right Arm Blood Pressure: 106/66 Blood Pressure Mean: 79 Blood Pressure Source: Automatic Cuff Medical Screen Scoring - Cervical Exam Dilation (cm): 0 Membranes: Intact - Assessment - Baby A Baseline FHR: 135 Heart Rate - NICHD Category: Category I (Normal) NST: Reactive Physician Notification - Physician Notified Physician Notified Date: 06/09/24 Physician Notified Time: 11:33 Physician: Sarai Goss New Order Received: Yes (d/c home if cervix not dilated) Maternal Triage Index - Urgent/Priority 2 Urgent Priority 2: Yes Provider Notified: Sarai Goss Provider Notified Time: 11:33 Criteria Met for Priority 2: reactive nst, few contractions on monitor, not felt by pt, vitals wnl, vag exam, closed/thick/high Disposition - Disposition OB Disposition: Discharge to home Discharge Date: 06/09/24 Discharge Time: 11:48 I agree with the RN Medical Screening Exam: Yes Physician's MSE Comment: I have neither seen nor examined the patient Case reviewed; plan agreed upon as documented in EMR&OBIX.: Yes Diagnosis: FALSE LABOR BEFORE 37 COMPLETED WEEKS OF GEST, THIRD TRI
== END 2024-06-09 11:48 | disposition home or self-care (01) ==
LOC: FBPOP 10:10
PROVIDERS: ATTEND Obstetrics & Gynecology
DX: O47.00 False labor before 37 completed weeks of gestation, unspecified trimester (principal); Z3A.31 31 weeks gestation of pregnancy; Z88.8 Allergy status to other drugs, medicaments and biological substances; Z87.891 Personal history of nicotine dependence
CPT/HCPCS: 59025; 81003; G0463; 99213

== ENCOUNTER 2024-06-24 18:03 | Outpatient (CLI) | payer OTHER ==
[2024-06-24 18:19] LABS: Glucose,Whole Blood 134 mg/dL (70-110)
[2024-06-24 19:07] LABS: Appearance,Urine Cloudy (Clear); Bacteria,Urine Occasional /hpf; Bilirubin,Urine Negative (Negative); Blood,Urine Negative (Negative); Color,Urine Light Yellow; Glucose,Urine (UA) 3+ (Negative); Ketones,Urine Negative (Negative); Leukocyte Esterase,Urine Small (Negative); Mucus,Urine Few /hpf; Nitrite,Urine Negative (Negative); Protein,Urine Trace (Negative); RBC,Urine 3 /hpf (0-5); Specific Gravity,Urine 1.017 (1.001-1.035); Squamous Epithelial Cell,Urine 7 /hpf (0-4); Urobilinogen,Urine <2.0 mg/dL (<2.0); WBC,Urine 6 /hpf (0-5)
[2024-06-24 19:34] VITALS: BP 116/63; PULSE 105; RESP 16; TEMP 98.1
--- NOTE | 2024-07-27 23:46 | P.MSEPDOC ---
Presenting Problems - Arrival Data Date of Arrival on Unit: 06/24/24 Time of Arrival on Unit: 18:03 Mode of Transport: Ambulatory - Complaint OB-Reason for Admission/Chief Complaint: Acute Nausea/Vomiting, Dizziness, Other Comment: Pt reports to triage with complaints of sudden onset dizziness at 1730 while she was eating dinner. Pt states she feels "drunk" and like the room is spinning. Pt also reports nausea that started with the dizziness. Pt states she had contractions earlier in the day between 3 and 4pm but has not had any since. Pt does have GDM - diet controlled and reports her BS as 133 at 1745. Pt has not been ill nor around any sick people. Medical History - Information : 2 Para: 1 Term: 1 : 0 Abortions: Spontaneous or Elective: 0 Number of Living Children: 1 - Gestational Age Gestational Age by DIPTI (wks/days): 33 Weeks and 1 Days - History Complications: GDM Review of Systems - Review of Systems Constitutional: No problems Breast: No problems ENT: No problems Cardiovascular: No problems Respiratory: No problems Gastrointestinal: No problems Genitourinary: No problems Musculoskeletal: No problems Neurological: Dizziness Skin: No problems Vital Signs - Temperature Temperature: 98.1 F Temperature Source: Temporal Artery Scan - Pulse Pulse Oximetery Pulse Rate: 105 Pulse Assessment Method: Pulse Oximetry - Respirations Respiratory Rate: 16 Oxygen Delivery Method: Room Air - Blood Pressure Right Arm Blood Pressure: 116/63 Blood Pressure Mean: 80 Blood Pressure Source: Automatic Cuff Medical Screen Scoring - Uterine Contractions Resting: Soft to palpation - Assessment - Baby A Baseline FHR: 135 Heart Rate - NICHD Category: Category I (Normal) NST: Reactive Physician Notification - Physician Notified Physician Notified Date: 06/24/24 Physician Notified Time: 19:16 Physician: Rajan Brock New Order Received: Yes - Notification Comment Comment: Dr. Brock called back with UA results (trace protein, 3+glucose, no ketones). Orders to send urine for a culture and D/C pt home with instructions to call the office in the AM if symptoms have not resolved. Per MD, pt is probably developing a viral infection. Maternal Triage Index - Maternal Triage Index Presenting for scheduled procedure w/no complaint: No - Stat/Priority 1 Stat Priority 1: No - Urgent/Priority 2 Urgent Priority 2: No - Prompt/Priority 3 Prompt Priority 3: No - Non-Urgent/Priority 4 Non-Urgent Priority 4: Yes Criteria Met for Priority 4: Nausea, dizziness Disposition - Disposition OB Disposition: Discharge to home, Written follow up instructions reviewed Discharge Date: 06/24/24 Discharge Time: 19:25 I agree with the RN Medical Screening Exam: Yes Physician's MSE Comment: I have neither seen nor examined the patient. Case reviewed; plan agreed upon as documented in EMR&OBIX.: Yes Diagnosis: RELATED CONDITIONS, UNSPECIFIED, THIRD TRIMESTER
== END 2024-06-24 19:25 | disposition home or self-care (01) ==
LOC: FBPOP 18:03
PROVIDERS: ATTEND Obstetrics & Gynecology
DX: O26.93 Pregnancy related conditions, unspecified, third trimester (principal); Z3A.33 33 weeks gestation of pregnancy; Z88.8 Allergy status to other drugs, medicaments and biological substances; Z87.891 Personal history of nicotine dependence
CPT/HCPCS: 59025; 81001; 87086; G0463; 99213

== ENCOUNTER 2024-07-16 20:28 | Outpatient (CLI) | payer OTHER ==
[2024-07-16 21:29] VITALS: BP 99/64; PULSE 90; RESP 18; TEMP 97
--- NOTE | 2024-07-22 12:48 | P.MSEPDOC ---
Presenting Problems - Arrival Data Date of Arrival on Unit: 07/16/24 Time of Arrival on Unit: 20:28 Mode of Transport: Ambulatory - Complaint OB-Reason for Admission/Chief Complaint: Possible Onset of Labor, Rule Out SROM Comment: SOB at rest and with exertion, lungs clear to auscultation, SPO2 94-97, HR low 100s. Medical History - Information : 2 Para: 1 Term: 1 : 0 Abortions: Spontaneous or Elective: 0 Number of Living Children: 1 - Gestational Age Gestational Age by DIPTI (wks/days): 36 Weeks and 2 Days - History Complications: GDM Review of Systems - Review of Systems Constitutional: No problems Breast: No problems ENT: No problems Cardiovascular: No problems Respiratory: No problems Gastrointestinal: No problems Genitourinary: No problems Musculoskeletal: No problems Neurological: No problems Skin: No problems Vital Signs - Temperature Temperature: 97.0 F Temperature Source: Temporal Artery Scan - Pulse Right Pulse Rate: 90 Pulse Assessment Method: Pulse Oximetry - Respirations Respiratory Rate: 18 Oxygen Delivery Method: Room Air O2 Sat by Pulse Oximetry: 95 - Blood Pressure Right Arm Blood Pressure: 99/64 Blood Pressure Mean: 75 Blood Pressure Source: Automatic Cuff Medical Screen Scoring - Cervical Exam Dilation (cm): 0 Membranes: Intact - Uterine Contractions Intensity: Mild Resting: Soft to palpation - Assessment - Baby A Baseline FHR: 150 Heart Rate - NICHD Category: Category I (Normal) NST: Reactive Physician Notification - Physician Notified Physician Notified Date: 07/16/24 Physician Notified Time: 21:10 Physician: Sarai Goss New Order Received: Yes (D/C home) - Notification Comment Comment: Notified Dr Goss of patient's complaints of contractions, SOB, and leaking fluid. NST reactive, amnisure negative, cervix closed and thick. Notified that only have graphed a couple contractions since patient has been on the monitor and that abdomen is soft with contractions and at rest. Notified that lungs are clear, SPO2 94-97 HR low 100's,and of BPs including 87/53 after patient was layed flat for SVE. Dr Goss ordered d/c. Maternal Triage Index - Maternal Triage Index Presenting for scheduled procedure w/no complaint: No - Stat/Priority 1 Stat Priority 1: No - Urgent/Priority 2 Urgent Priority 2: No - Prompt/Priority 3 Prompt Priority 3: Yes Criteria Met for Priority 3: 36 weeks and 2 days complaining of contractions and possible SROM. Disposition - Disposition OB Disposition: Discharge to home Discharge Date: 07/16/24 Discharge Time: 21:20 I agree with the RN Medical Screening Exam: Yes Physician's MSE Comment: I have neither seen nor examined the patient Case reviewed; plan agreed upon as documented in EMR&OBIX.: Yes Diagnosis: MATERNAL CARE FOR PROBLEM, UNSP, THIRD * DO NOT USE *
== END 2024-07-16 21:20 | disposition home or self-care (01) ==
LOC: FBPOP 20:28
PROVIDERS: ATTEND Obstetrics & Gynecology
DX: O36.93X0 Maternal care for fetal problem, unspecified, third trimester, not applicable or unspecified (principal); Z3A.36 36 weeks gestation of pregnancy; Z87.891 Personal history of nicotine dependence; Z88.8 Allergy status to other drugs, medicaments and biological substances
CPT/HCPCS: 59025; 84112; G0463; 99213

== ENCOUNTER 2024-07-20 20:04 | Outpatient (CLI) | payer OTHER ==
[2024-07-20 20:15] LABS: Glucose,Whole Blood 139 mg/dL (70-110)
[2024-07-20 23:23] VITALS: BP 122/56; PULSE 105; RESP 16; TEMP 96.8
--- NOTE | 2024-07-22 13:00 | P.MSEPDOC ---
Presenting Problems - Arrival Data Date of Arrival on Unit: 07/20/24 Time of Arrival on Unit: 20:04 Mode of Transport: Ambulatory - Complaint OB-Reason for Admission/Chief Complaint: Possible Onset of Labor Comment: pt. present to triage due to contration pt. states they started 2 and half hours ago and are currently 2-3min apart, pt. rating pain 6/10 Medical History - Information : 2 Para: 1 Term: 1 : 0 Abortions: Spontaneous or Elective: 0 Number of Living Children: 1 - Gestational Age Gestational Age by DIPTI (wks/days): 36 Weeks and 6 Days Review of Systems - Review of Systems Constitutional: No problems Breast: No problems ENT: No problems Cardiovascular: No problems Respiratory: No problems Gastrointestinal: No problems Genitourinary: No problems Musculoskeletal: No problems Neurological: No problems Skin: No problems Vital Signs - Temperature Temperature: 96.8 F Temperature Source: Temporal Artery Scan - Pulse Pulse Oximetery Pulse Rate: 105 Pulse Assessment Method: Automatic Cuff - Respirations Respiratory Rate: 16 Oxygen Delivery Method: Room Air O2 Sat by Pulse Oximetry: 97 - Blood Pressure Right Arm Blood Pressure: 122/56 Blood Pressure Mean: 78 Blood Pressure Source: Automatic Cuff Medical Screen Scoring - Cervical Exam Dilation (cm): 1 Effacement (%): 60 Station: -3 Membranes: Intact - Uterine Contractions Frequency From (mins): 2 Frequency To (mins): 15 Duration From (seconds): 30 Duration To (seconds): 60 Intensity: Mild Resting: Soft to palpation - Assessment - Baby A Baseline FHR: 130 Heart Rate - NICHD Category: Category I (Normal) NST: Reactive Physician Notification - Physician Notified Physician Notified Date: 07/20/24 Physician Notified Time: 22:21 Physician: Sarai Goss - Notification Comment Comment: pt. stayed for 2 hours, no cervical change, orders to discharge home Maternal Triage Index - Stat/Priority 1 Stat Priority 1: No - Urgent/Priority 2 Urgent Priority 2: No - Prompt/Priority 3 Prompt Priority 3: Yes Criteria Met for Priority 3: 36 6/7. contractions Disposition - Disposition OB Disposition: Discharge to home Discharge Date: 07/20/24 Discharge Time: 22:26 I agree with the RN Medical Screening Exam: Yes Physician's MSE Comment: I have neither seen nor examined the patient Case reviewed; plan agreed upon as documented in EMR&OBIX.: Yes Diagnosis: FALSE LABOR, UNSPECIFIED
== END 2024-07-20 22:26 | disposition home or self-care (01) ==
LOC: FBPOP 20:04
PROVIDERS: ATTEND Obstetrics & Gynecology
DX: O47.9 False labor, unspecified (principal); Z3A.36 36 weeks gestation of pregnancy; Z88.8 Allergy status to other drugs, medicaments and biological substances; Z87.891 Personal history of nicotine dependence
CPT/HCPCS: 59025; G0463; 99213

== ENCOUNTER 2024-07-23 13:07 | Outpatient (CLI) | payer OTHER ==
[2024-07-23 14:42] VITALS: BP 115/66; PULSE 99; RESP 16; TEMP 97.4
--- NOTE | 2024-09-06 20:19 | P.MSEPDOC ---
Presenting Problems - Arrival Data Date of Arrival on Unit: 07/23/24 Time of Arrival on Unit: 13:07 Mode of Transport: Ambulatory - Complaint OB-Reason for Admission/Chief Complaint: Possible Onset of Labor Comment: cx 2-5mins apart Medical History - Information : 2 Para: 1 Term: 1 : 0 Abortions: Spontaneous or Elective: 0 Number of Living Children: 1 - Gestational Age Gestational Age by DIPTI (wks/days): 37 Weeks and 2 Days - History Complications: GDM Review of Systems - Review of Systems Constitutional: No problems Breast: No problems ENT: No problems Cardiovascular: No problems Respiratory: No problems Gastrointestinal: No problems Genitourinary: No problems Musculoskeletal: No problems Neurological: No problems Skin: No problems Vital Signs - Temperature Temperature: 97.4 F Temperature Source: Temporal Artery Scan - Pulse Pulse Oximetery Pulse Rate: 99 Pulse Assessment Method: Pulse Oximetry - Respirations Respiratory Rate: 16 Oxygen Delivery Method: Room Air O2 Sat by Pulse Oximetry: 96 - Blood Pressure Right Arm Blood Pressure: 115/66 Blood Pressure Mean: 82 Blood Pressure Source: Automatic Cuff Medical Screen Scoring - Cervical Exam Dilation (cm): 1.5 Effacement (%): 60 Station: -3 Membranes: Intact - Uterine Contractions Frequency From (mins): 4 Frequency To (mins): 10 Duration From (seconds): 50 Duration To (seconds): 70 Intensity: Mild Resting: Soft to palpation - Assessment - Baby A Baseline FHR: 130 Heart Rate - NICHD Category: Category I (Normal) NST: Reactive Physician Notification - Physician Notified Physician Notified Date: 07/23/24 Physician Notified Time: 13:51 Physician: Jael Hurtado New Order Received: Yes - Notification Comment Comment: Dr. Hurtado on unit, report given on maternal c/o contractions since 08 and one episode of vaginal bleeding around 1130 but none since. SVE is 1.5/60/- 3, no blood or fluid noted during SVE, amnisure negative. Cx currently 4-9mins apart, FHTs category 1 and reactive. Orders to recheck cervix after 1 hour, if unchanged, pt can be discharged home. Maternal Triage Index - Maternal Triage Index Presenting for scheduled procedure w/no complaint: No - Stat/Priority 1 Stat Priority 1: No - Urgent/Priority 2 Urgent Priority 2: No - Prompt/Priority 3 Prompt Priority 3: No - Non-Urgent/Priority 4 Non-Urgent Priority 4: Yes Criteria Met for Priority 4: 37 2/7wks, early labor s/s Disposition - Disposition OB Disposition: Discharge to home Discharge Date: 07/23/24 Discharge Time: 14:35 I agree with the RN Medical Screening Exam: Yes Case reviewed; plan agreed upon as documented in EMR&OBIX.: Yes Diagnosis: FALSE LABOR AT OR AFTER 37 COMPLETED WEEKS OF GESTATION
== END 2024-07-23 14:35 | disposition home or self-care (01) ==
LOC: FBPOP 13:07
PROVIDERS: ATTEND Obstetrics & Gynecology Obstetrics
DX: O47.1 False labor at or after 37 completed weeks of gestation (principal); Z87.891 Personal history of nicotine dependence; Z88.8 Allergy status to other drugs, medicaments and biological substances; Z3A.37 37 weeks gestation of pregnancy
CPT/HCPCS: 59025; 84112; G0463; 99213

== ENCOUNTER 2024-07-29 13:44 | Outpatient (CLI) | payer OTHER ==
[2024-07-29 15:10] VITALS: BP 110/61; PULSE 90; RESP 16; TEMP 97.9
--- NOTE | 2024-08-24 11:09 | P.MSEPDOC ---
Presenting Problems - Arrival Data Date of Arrival on Unit: 07/29/24 Time of Arrival on Unit: 13:44 Mode of Transport: Ambulatory - Complaint OB-Reason for Admission/Chief Complaint: Possible Onset of Labor Medical History - Information : 2 Para: 1 Term: 1 : 0 Abortions: Spontaneous or Elective: 0 Number of Living Children: 1 - Gestational Age Gestational Age by DIPTI (wks/days): 38 Weeks and 1 Days Review of Systems - Review of Systems Constitutional: No problems Breast: No problems ENT: No problems Cardiovascular: No problems Respiratory: No problems Gastrointestinal: No problems Genitourinary: No problems Musculoskeletal: No problems Neurological: No problems Skin: No problems Vital Signs - Temperature Temperature: 97.9 F Temperature Source: Oral - Pulse Right Brachial Pulse Rate: 90 Pulse Assessment Method: Automatic Cuff - Respirations Respiratory Rate: 16 Oxygen Delivery Method: Room Air O2 Sat by Pulse Oximetry: 97 - Blood Pressure Right Arm Blood Pressure: 110/61 Blood Pressure Mean: 77 Blood Pressure Source: Automatic Cuff Medical Screen Scoring - Cervical Exam Dilation (cm): 2 Effacement (%): 70 Station: -3 Membranes: Intact - Assessment - Baby A Baseline FHR: 130 Heart Rate - NICHD Category: Category I (Normal) NST: Reactive Physician Notification - Physician Notified Physician Notified Date: 07/29/24 Physician Notified Time: 14:46 Physician: Rajan Brock New Order Received: Yes - Notification Comment Comment: Dr. Brock in dept. Report given on pt. VS WNL. Reactive NST. Vag exam 270/-3. Orders received to d/c pt to home if no change in vag exam after one hour. Maternal Triage Index - Urgent/Priority 2 Urgent Priority 2: Yes Provider Notified: Rajan Brock Provider Notified Time: 14:46 Criteria Met for Priority 2: Pt c/o of contracions q2-3 minutes. Disposition - Disposition OB Disposition: Discharge to home Discharge Date: 07/29/24 Discharge Time: 15:01 I agree with the RN Medical Screening Exam: Yes Physician's MSE Comment: I have neither seen nor examined the patient. Case reviewed; plan agreed upon as documented in EMR&OBIX.: Yes Diagnosis: RELATED CONDITIONS, UNSPECIFIED, THIRD TRIMESTER
== END 2024-07-29 15:01 | disposition home or self-care (01) ==
LOC: FBPOP 13:44
PROVIDERS: ATTEND Obstetrics & Gynecology
DX: O26.93 Pregnancy related conditions, unspecified, third trimester (principal); Z88.8 Allergy status to other drugs, medicaments and biological substances; Z87.891 Personal history of nicotine dependence; Z3A.38 38 weeks gestation of pregnancy
CPT/HCPCS: 59025; G0463; 99213

== ENCOUNTER 2024-08-01 05:41 | Inpatient (IN) | payer OTHER ==
[2024-08-01] MEDS ORDERED: LIDOCAINE 0.5% (PF) 5 MG/ML (50 ML SDV) SQ PRN (05:55)
[2024-08-01] MEDS ORDERED: miSOPROStoL 200 MCG TAB RECTAL PRN (05:55)
[2024-08-01] MEDS ORDERED: OXYTOCIN 10 UNIT/ML 1 ML VIAL IM PRN (05:55)
[2024-08-01] MEDS ORDERED: TRANEXAMIC 1,000 MG/100ML-NACL 1,000 MG in EMPTY BAG 1 BAG IV PRN (05:55)
[2024-08-01] MEDS ORDERED: TERBUTALINE 1 MG/ML VIAL SQ PRN (05:55)
[2024-08-01] MEDS ORDERED: CARBOPROST TROMETHAMINE 250 MCG/ML 1 ML AMP IM PRN (05:55)
[2024-08-01] MEDS ORDERED: METHYLERGONOVINE 0.2 MG/ML 1 ML AMP IM PRN (05:55)
[2024-08-01] MEDS ORDERED: miSOPROStoL 200 MCG TAB PO PRN (05:55)
[2024-08-01 06:01] LABS: Glucose,Whole Blood 109 mg/dL (70-110)
[2024-08-01] MEDS: LACTATED RINGERS 1,000 ML IV SCH (06:12)
[2024-08-01] MEDS: OXYTOCIN 30 UNITS/500 ML NS 30 UNIT in SALINE 1 500ML.BAG IV SCH (06:14)
[2024-08-01 07:00] LABS: Basophils % (A) 1 %; Eosinophils # (A) 0.2 k/uL (0-0.7); Eosinophils % (A) 2 %; HCT 32.3 % (34.0-46.0); HGB 10.3 gm/dL (11.4-16.0); Hypochromasia Slight; Lymphocytes # (A) 1.6 k/uL (1.0-4.8); Lymphocytes % (A) 23 %; MCH 27.8 pg (25.0-35.0); MCHC 31.9 g/dL (31.0-37.0); MCV 87.2 fL (80.0-100.0); Mean Platelet Volume 8.1; Monocytes # (A) 0.5 k/uL (0-1.0); Monocytes % (A) 7 %; Neutrophils # (A) 4.7 k/uL (1.3-7.7); Neutrophils % (A) 65 %; Platelet Count 326 k/uL (150-450); Poikilocytosis Slight; RDW 15.6 % (11.5-15.5); WBC 7.2 k/uL (3.8-10.6)
[2024-08-01] MEDS ORDERED: fentaNYL (PF) 50 MCG/ML 5 ML AMP ONE (10:21)
[2024-08-01] MEDS ORDERED: ROPIVACAINE 5 MG/ML 30 ML VIAL ONE (10:21)
[2024-08-01] MEDS ORDERED: SODIUM CHLORIDE 0.9% 250 ML BAG ONE (10:21)
[2024-08-01 13:18] LABS: Glucose,Whole Blood 65 mg/dL (70-110)
[2024-08-01] MEDS ORDERED: BENZOCAINE/MENTHOL SPRAY 1 GM/SPRAY AEROSOL TOPICAL PRN (15:45)
[2024-08-01] MEDS ORDERED: HYDROCORTISONE 2.5% RECTAL CREAM 30 GM TUBE RECTAL PRN (15:45)
[2024-08-01] MEDS ORDERED: ZOLPIDEM 5 MG TAB PO PRN (15:45)
[2024-08-01] MEDS ORDERED: SIMETHICONE 80 MG CHEWABLE PO PRN (15:45)
[2024-08-01] MEDS ORDERED: diphenhydrAMINE 50 MG CAP PO PRN (15:45)
[2024-08-01] MEDS ORDERED: LANOLIN CREAM 1 GM TUBE TOPICAL PRN (15:45)
[2024-08-01] MEDS ORDERED: diphenhydrAMINE 50 MG/ML 1 ML VIAL IVP PRN ×2 (15:45)
[2024-08-01] MEDS ORDERED: diphenhydrAMINE 25 MG CAP PO PRN (15:45)
--- NOTE | 2024-08-01 15:56 | P.HPOB ---
History of Present Illness H&P Date: 08/01/24 Chief Complaint: IUP at 38-4/7 weeks, hypothyroidism uncontrolled, poorly co ntrolled GDM 29 yo G [id number] at 38-4/7 weeks presents to labor and delivery for induction of labor secondary to uncontrolled hypothyroidism, poorly controlled gestational diabetes. Patient has significant family stress at this time as a family member is very ill and only given a short amount of time to live. Patient has been receiving routine care complicated by gestational diabetes, poorly controlled she in addition has a history of thyroid cancer subsequent thyroidectomy and poorly controlled hypothyroidism at this point. Patient does note good movement growth US and testing for this has been normal. Patient notes good movement denies vaginal bleeding or loss of fluid. blood work this patient is a blood type of a positive, rubella status immune, hepatitis B surface into negative, HIV negative, RPR is nonreactive, hepatitis C is nonreactive, grew beta strep culture is negative. Review of Systems Constitutional: Denies chills, Denies fatigue, Denies fever Ears, nose, mouth and throat: Denies headache Cardiovascular: Reports leg edema Respiratory: Denies dyspnea Gastrointestinal: Denies constipation, Denies diarrhea, Denies nausea, Denies vomiting Genitourinary: Reports Past Medical History Past Medical History: Fibromyalgia Additional Past Medical History / Comment(s): carpal tunnel, thyroid cancer, covid History of Any Multi-Drug Resistant Organisms: None Reported Past Surgical History: No Surgical Hx Reported Additional Past Surgical History / Comment(s): thyroidectomy, iodine radiation therapy Past Anesthesia/Blood Transfusion Reactions: No Reported Reaction Past Psychological History: Anxiety Additional Psychological History / Comment(s): no meds Smoking Status: Never smoker Past Alcohol Use History: None Reported Past Drug Use History: None Reported - Past Family History Mother Family Medical History: No Reported History Medications and Allergies Home Medications Medication Instructions Recorded Confirmed Type Levothyroxine Sodium [Synthroid] 300 mcg PO DAILY 06/07/16 07/29/24 History Omeprazole 40 mg PO HS 07/16/24 07/29/24 History Omeprazole [PriLOSEC] 20 mg PO AC-BRKFST 07/16/24 07/29/24 History Allergies Allergy/AdvReac Type Severity Reaction Status Date / Time pregabalin [From Lyrica] AdvReac Mild Nausea & Verified 08/01/24 05:54 Vomiting Exam Osteopathic Statement: *. No significant issues noted on an osteopathic structural exam other than those noted in the History and Physical/Consult. Intake and Output 08/01/24 08/01/24 08/01/24 06:59 14:59 22:59 Other: Weight 79.832 kg Targeted physical exam is performed this date General Is well-nourished well- developed female in no acute distress, breathing is nonlabored, abdomen is gravid and appropriate for gestational age, and cervical exam she is 2/70/-3 station, amniotomy was performed clear fluid was obtained. heart tones noted be category 1 and she is mon[place] irregularly. Results Result Diagrams: 08/01/24 06:00 Abnormal Lab Results - Last 24 Hours (Table) 08/01/24 08/01/24 Range/Units 06:00 13:17 RBC 3.70 L (3.80-5.40) m/uL Hgb 10.3 L (11.4-16.0) gm/dL Hct 32.3 L (34.0-46.0) % RDW 15.6 H (11.5-15.5) % POC Glucose (mg/dL) 65 L (70-110) mg/dL Assessment and Plan (1) Term Current Visit: Yes Status: Acute Code(s): Z34.90 - ENCNTR FOR SUPRVSN OF NORMAL , UNSP, UNSP TRIMESTER SNOMED Code(s): 06405580 (2) Gestational diabetes Narrative/Plan: Poorly controlled Current Visit: Yes Status: Acute Code(s): O24.419 - GESTATIONAL DIABETES MELLITUS IN , UNSP CONTROL SNOMED Code(s): 06918025 (3) Hypothyroidism Narrative/Plan: Poorly controlled secondary to history of thyroid cancer and thyroidectomy Current Visit: Yes Status: Acute Code(s): E03.9 - HYPOTHYROIDISM, UN SPECIFIED SNOMED Code(s): 57402652 (4) History of thyroid cancer Current Visit: Yes Status: Acute Code(s): Z85.850 - PERSONAL HISTORY OF MALIGNANT NEOPLASM OF THYROID SNOMED Code(s): 911128233 Plan: 29-year-old G2, P1 at 38-4/7 weeks that was admitted for induction of labor. Pitocin induction of labor is begun. Amniotomy was performed and clear fluid was obtained. Patient does desire epidural when appropriate. Anesthesia will be notified. Anticipate spontaneous vaginal delivery later today.
--- NOTE | 2024-08-01 15:57 | P.PROBDLV ---
Vaginal Delivery Note - . Vaginal Delivery Note: Date of service 08/01/2024 Findings viable female infant delivered at 1528, weight of 6 pounds 8 ounces, Apgars of 8 and 9 29-year-old 2 para 1 at 38-4/7 weeks that presents for induction of labor. Patient is admitted and Pitocin induction of labor is begun per hospital protocol. Amniotomy was performed clear fluid was obtained. Patient made good progress in labor eventually becoming uncomfortable and requesting epidural. Epidural was placed without difficulty by the anesthesia department. Patient made progress toward complete dilation. Once completely dilated patient began pushing. With excellent maternal effort patient had a normal spontaneous v aginal delivery of a viable female at 1528, weight of 6 pounds 8 ounces, Apgars of 8 and 9 at 1 and 5 minutes respectively. Patient did sustain a first- degree vaginal laceration after delivery. After 2-minute delay the umbilical cord was doubly clamped and cut. Placenta was delivered spontaneously intact with a three-vessel cord. Vaginal laceration was repaired in the usual fashion with 3-0 Rapide. Hemostasis was noted after delivery. Uterus was noted to be firm below the umbilicus. Estimated blood loss 150 cc. All counts noted be correct x 2. Patient and infant tolerated delivery well and resting comfortably.
[2024-08-01 16:20] VITALS: RESP 16
[2024-08-01] MEDS: IBUPROFEN 800 MG TAB PO SCH (16:29)
[2024-08-01] MEDS: PANTOPRAZOLE 40 MG TABLET PO STA (16:29)
[2024-08-01] MEDS: SENNOSIDES-DOCUSATE SODIUM 1 EACH TAB PO SCH (20:14)
[2024-08-02] MEDS: ACETAMINOPHEN TAB 500 MG TAB PO SCH (00:16)
[2024-08-02] MEDS: LEVOTHYROXINE 100 MCG TAB PO SCH (06:38)
[2024-08-02 08:25] VITALS: BP 104/71; PULSE 85; TEMP 97.8
--- NOTE | 2024-08-02 10:14 | P.DS ---
Providers Date of admission: 08/01/24 05:41 Expected date of discharge: 08/02/24 Attending physician: Jael Hurtado Primary care physician: Stated None - Discharge Diagnosis(es) (1) Term Current Visit: Yes Status: Acute (2) Gestational diabetes Current Visit: Yes Status: Acute (3) Hypothyroidism Current Visit: Yes Status: Acute (4) History of thyroid cancer Current Visit: Yes Status: Acute Hospital Course: 29-year-old 2 now para 2 that presented to labor and delivery on 08/01 for scheduled induction of labor at 38-4/7 weeks. Patient had been receiving routine care which was complicated by diagnosis of gestational diabetes, poorly controlled and poorly controlled hypothyroidism. Patient did receive testing where growth ultrasounds were appropriate. For full details and the patient please see the dictated history and physical. Patient was admitted to labor and delivery and Pitocin induction of labor was begun. Patient underwent amniotomy and clear fluid was obtained. Patient progressed to complete began pushing and had a normal spontaneous vaginal delivery of a viable female at 1528, weight of 6 pounds 8 ounces, Apgars of 8 and 9 at 1 and 5 minutes respectively. First-degree vaginal laceration was appreciated after delivery and repaired in the usual fashion. Patient did receive an epidural during labor. Patient's course has been uneventful. This day 1 she is ambulating and voiding without difficulty. She is tolerating a regular diet without nausea or vomiting. She states her pain is well-controlled. She denies concerns and would like discharge home at 24 hours. Patient Condition at Discharge: Good Plan - Discharge Summary New Discharge Prescriptions: No Action Levothyroxine Sodium [Synthroid] 300 mcg PO DAILY Omeprazole [PriLOSEC] 20 mg PO AC-BRKFST Omeprazole 40 mg PO HS Discharge Medication List Levothyroxine Sodium [Synthroid] 300 mcg PO DAILY 06/07/16 [History] Omeprazole 40 mg PO HS 07/16/24 [History] Omeprazole [PriLOSEC] 20 mg PO AC-BRKFST 07/16/24 [History] Follow up Appointment(s)/Referral(s): Jael Hurtado DO [Doctor of Osteopathic Medicine] - 09/13/24 3:00 pm
== END 2024-08-02 16:00 | disposition home or self-care (01) | DRG 560 ==
LOC: 4FBP 05:41
PROVIDERS: ADMIT Obstetrics & Gynecology Obstetrics; ATTEND Obstetrics & Gynecology Obstetrics
PROC: 10E0XZZ Delivery of Products of Conception, External Approach (ICD-10-PCS; principal; 2024-08-01)
PROC: 10907ZC Drainage of Amniotic Fluid, Therapeutic from Products of Conception, Via Natural or Artificial Opening (ICD-10-PCS; 2024-08-01)
PROC: 3E033VJ Introduction of Other Hormone into Peripheral Vein, Percutaneous Approach (ICD-10-PCS; 2024-08-01)
PROC: 0KQM0ZZ Repair Perineum Muscle, Open Approach (ICD-10-PCS; 2024-08-01)
DX: O24.429 Gestational diabetes mellitus in childbirth, unspecified control (principal); Z37.0 Single live birth; O70.0 First degree perineal laceration during delivery; E89.0 Postprocedural hypothyroidism; O99.284 Endocrine, nutritional and metabolic diseases complicating childbirth; Z3A.38 38 weeks gestation of pregnancy; Z85.850 Personal history of malignant neoplasm of thyroid; Z79.890 Hormone replacement therapy; Z79.899 Other long term (current) drug therapy; Z92.3 Personal history of irradiation; Z90.89 Acquired absence of other organs
CPT/HCPCS: 85025; 86850; 86900; 86901